=== PATIENT | female | born 1965 | race Caucasian/White ===

== ENCOUNTER 2023-07-04 07:29 | Outpatient (OUT) | payer BC, SELFPAY ==
--- NOTE | 2023-07-04 07:33 | MM_ITS ---
Patient Name: AQUILES CRUM MR#: [id number] : 1965 Exam Date: 07/04/2023 Ordering Doctor: DR Emma Arriola M.D. RADIOLOGY REPORT PROCEDURE: MM TOMOSYNTHESIS SCREENING BI COMPARISON: MG MAMM SCREEN 3D LATESHA CAD, 12/06/2020. MG MAMM SCREEN 3D LATESHA CAD, 03/07/2022. INDICATIONS: Screening Calculator Name NCI Breast Cancer Risk Assessment Tool 5 Year Breast Cancer Risk 1.20% Lifetime Breast Cancer Risk 6.70% Personal Breast Cancer No Personal Ovarian Cancer No Treatments None Family Cancers None LOCATION: [facility] BREAST COMPOSITION: There are scattered areas of fibroglandular density. FINDINGS: DIAGNOSTIC CATEGORY 1--NEGATIVE. NO CHANGE FROM COMPARISON ASSESSMENT. Scattered benign-appearing lymph nodes are present. RIGHT BREAST: No significant suspicious finding. LEFT BREAST: No significant suspicious finding. RECOMMENDATIONS: ROUTINE MAMMOGRAM AND CLINICAL EVALUATION IN 12 MONTHS. PLEASE NOTE: A NORMAL MAMMOGRAM DOES NOT EXCLUDE THE POSSIBILITY OF BREAST CANCER. A CLINICALLY SUSPICIOUS PALPABLE LUMP SHOULD BE BIOPSIED. Dictated by: Kvng Whitlock MD on 07/04/2023 at 09:19 Approved by: Kvng Whitlock MD on 07/04/2023 at 09:20
== END 2023-07-04 07:30 | disposition home or self-care (01) ==
LOC: MAMMO 07:29
PROVIDERS: PCP Family Medicine; Visit Provider Family Medicine
DX: Z12.31 Encounter for screening mammogram for malignant neoplasm of breast (principal)
CPT/HCPCS: 77063; 77067

== ENCOUNTER 2023-08-04 08:50 | Outpatient (OUT) | payer BC, SELFPAY ==
--- NOTE | 2023-08-04 | CT_ITS ---
The [address] [address] Patient Name: AQUILES CRUM MRN: [id number] date: 1965 Sex: F Assigned Patient Location: CT Current Patient Location: Accession/Order Number: [id number] Exam Date: 08/04/2023 09:08 Report Date: 08/06/2023 07:38 At the request of: MADALYN AGUILAR Procedure: CT soft tissue neck w con CT soft tissue neck w con, 08/04/2023 9:08 AM EDT INDICATION: Mass right side of neck R22.1 COMPARISON: Prior ultrasound of thyroid dated 06/10/2020 TECHNIQUE: CT imaging of the neck were acquired with contrast. Supplemental 2D reformatted images were generated and reviewed as needed. Dose reduction techniques were achieved by using automated exposure control and/or adjustment of mA and/or kV according to patient size and/or use of iterative reconstruction technique. FINDINGS: The sensitivity of study has been decreased due to streak artifacts from dental fillings. No abnormality of the base of skull is noted. A retention cyst within the left maxillary sinus is noted. The nasopharynx, oropharynx, hypopharynx and oral cavity are unremarkable. The parotids, submandibular glands are unremarkable. The larynx is unremarkable. No abnormality of paraglottic fat is noted. There is no lymph node enlargement by size criteria. No retropharyngeal lymph node is noted. The thyroid gland is enlarged and heterogeneous containing multiple calcified and noncalcified nodules. The visualized portions of lungs are unremarkable. There is no suspicious osteolytic or osteoblastic lesion. There are multilevel degenerative changes of cervical spine. There is status post ACDF of C5-C6 causing a streak artifact. No definite hardware fracture or loosening is noted. CT/CT soft tissue neck w con IMPRESSION: No definite mass in the current study. Known multinodular goiter. Electronically authenticated by: OCTAVIO CHAPIN Date: 08/06/2023 07:38
== END 2023-08-04 08:51 | disposition home or self-care (01) ==
LOC: CT 08:50
PROVIDERS: PCP Family Medicine; Visit Provider Family Medicine
DX: R22.1 Localized swelling, mass and lump, neck (principal); E04.2 Nontoxic multinodular goiter
CPT/HCPCS: 70491; Q9967

== ENCOUNTER 2023-08-07 10:47 | Outpatient (OUT) | payer BC, SELFPAY ==
--- NOTE | 2023-08-07 | XR_ITS ---
The [address] [address] Patient Name: AQUILES CRUM MRN: [id number] date: 1965 Sex: F Assigned Patient Location: Current Patient Location: Accession/Order Number: [id number] Exam Date: 08/07/2023 10:50 Report Date: 08/08/2023 06:24 At the request of: IVANA HOWELL Procedure: XR foot RT min 3V PROCEDURE: XR foot RT min 3V HISTORY: RIGHT FOOT PAIN for 3 weeks; no known injury COMPARISON: None. FINDINGS: BONES:No fracture, acute abnormality, or significant arthropathy. Calcaneal plantar spur. SOFT TISSUES:No visible soft tissue swelling. EFFUSION:None visible. OTHER: Negative. XR/XR foot RT min 3V IMPRESSION: 1. No acute bone abnormality or significant degenerative joint disease. 2. Moderate size calcaneal plantar spur of uncertain clinical significance. Electronically authenticated by: LOY CAST Date: 08/08/2023 06:24
== END 2023-08-07 10:48 | disposition home or self-care (01) ==
LOC: EC 10:48
PROVIDERS: PCP Family Medicine; Visit Provider Podiatrist Foot & Ankle Surgery
DX: M79.671 Pain in right foot (principal); M77.31 Calcaneal spur, right foot
CPT/HCPCS: 73630

== ENCOUNTER 2023-08-08 12:53 | Outpatient (RCR) | payer BC, SELFPAY | END 2023-09-06 11:35 | disposition home or self-care (01) | LOC: PT 12:53 | PROVIDERS: PCP Family Medicine; Visit Provider Podiatrist Foot & Ankle Surgery | DX: M79.671 Pain in right foot (principal); M72.2 Plantar fascial fibromatosis | CPT/HCPCS: 20560; 97014; 97035; 97110; 97112; 97140; 97161 ==

== ENCOUNTER 2023-11-26 07:52 | Outpatient (OUT) | payer BC, SELFPAY ==
[2023-11-26 08:10] LABS: Basophils Percent Auto 0.5 % (0.2-2.0); Eosinophils Absolute Auto 0.2 10^3/uL (0.0-0.7); Eosinophils Percent Auto 2.8 % (0.9-7.0); Hematocrit 39.9 % (36.0-48.0); Immature Granulocytes Abs Auto 0.01 10^3/uL (0.00-0.03); Immature Granulocytes Pct Auto 0.2 % (0.0-0.5); Lymphocytes Absolute Auto 1.7 10^3/uL (1.2-3.8); Lymphocytes Percent Auto 29.4 % (20.5-60.0); Mean Corpuscular HGB Conc 32.6 g/dL (29.9-35.2); Mean Corpuscular Hemoglobin 28.9 pg (26.7-34.0); Mean Corpuscular Volume 88.7 fL (81.0-99.0); Mean Platelet Volume 8.9 fL (9.5-13.5); Monocytes Absolute Auto 0.5 10^3/uL (0.3-0.8); Monocytes Percent Auto 8.9 % (1.7-12.0); Neutrophils Absolute Auto 3.3 10^3/uL (1.4-6.5); Neutrophils Percent Auto 58.2 % (43.0-75.0); Platelet Count 278 10^3/uL (150-450); Red Cell Distribution Width 13.2 % (11.0-15.0); White Blood Count 5.7 10^3/uL (4.0-11.0)
[2023-11-26 09:15] LABS: Anion Gap 11.8; BUN Creatinine Ratio 27.4; Calcium 9.4 mg/dL (8.5-10.1); Carbon Dioxide 29.4 mmol/L (21.0-32.0); Chloride 103 mmol/L (98-107); Estimated GFR (African America >60 (>=60); Estimated GFR (Non-African Ame >60 (>=60); Glucose 112 mg/dL (74-106); Potassium 4.2 mmol/L (3.5-5.1); Sodium 140 mmol/L (136-145); Thyroid Stimulating Hormone 0.708 uIU/mL (0.358-3.740)
== END 2023-11-26 07:53 | disposition home or self-care (01) ==
LOC: LAB 07:53
PROVIDERS: PCP Family Medicine; Visit Provider Family Medicine
DX: Z01.419 Encounter for gynecological examination (general) (routine) without abnormal findings (principal); R53.83 Other fatigue; K59.00 Constipation, unspecified
CPT/HCPCS: 36415; 80048; 84439; 84443; 85025

== ENCOUNTER 2024-09-05 07:40 | Outpatient (OUT) | payer BC, SELFPAY ==
--- NOTE | 2024-09-05 07:42 | MM_ITS ---
Patient Name: AQUILES CRUM MR#: [id number] : 1965 Exam Date: 09/05/2024 Ordering Doctor: DR MADALYN AGUILAR M.D. RADIOLOGY REPORT PROCEDURE: MM TOMOSYNTHESIS SCREENING BI COMPARISON: MM TOMOSYNTHESIS SCREENING BI, 07/04/2023. MG MAMM SCREEN 3D LATESHA CAD, 03/07/2022. MG MAMM SCREEN 3D LATESHA CAD, 12/06/2020. MG MAMM LATESHA SCRN W CAD DIG, 05/22/2013. INDICATIONS: screening or malignant neoplasm of breast Calculator Name NCI Breast Cancer Risk Assessment Tool 5 Year Breast Cancer Risk 1.30% Lifetime Breast Cancer Risk 6.60% Personal Breast Cancer No Personal Ovarian Cancer No Treatments None Family Cancers None LOCATION: [facility] BREAST COMPOSITION: There are scattered areas of fibroglandular density. FINDINGS: DIAGNOSTIC CATEGORY 1--NEGATIVE. RIGHT BREAST: No significant suspicious finding. LEFT BREAST: No significant suspicious finding. RECOMMENDATIONS: ROUTINE MAMMOGRAM AND CLINICAL EVALUATION IN 12 MONTHS. PLEASE NOTE: A NORMAL MAMMOGRAM DOES NOT EXCLUDE THE POSSIBILITY OF BREAST CANCER. A CLINICALLY SUSPICIOUS PALPABLE LUMP SHOULD BE BIOPSIED. Dictated by: Abhinav Marley DO on 09/05/2024 at 15:53 Approved by: Abhinav Marley DO on 09/05/2024 at 15:55
--- OUTSIDE RECORDS SUMMARY | 2024-09-05 07:47 | XMS_ITS | CCD ---
Author Organization [facility] Care Team Providers Care [employer] Equipment Operator Name Role Phone Emma Aguilar Primary Care Provider EMMA AGUILAR Primary Care Unavailable VAMSI, USMAN H. Referring Unavailable EMMA AGUILAR Primary Care Unavailable VAMSI, USMAN H. Attending Unavailable VAMSI, USMAN H. Referring Unavailable EMMA AGUILAR Primary Care Unavailable VAMSI, USMAN H. Admitting Unavailable VAMSI, USMAN H. Attending Unavailable Andrew Smith Unavailable REQUEST, NONE LISTED Admitting Unavaila ble REQUEST, DR ARREAGA LISTED Attending Unavaila ble LAUREN, DR EMMA Garcia Primary Care Unavailable REQUEST, NONE LISTED Consulting Unavaila ble LAUREN, DR EMMA Garcia Admitting Unavailable AGUILAR, DR EMMA Garcia Attending Unavailable AGUILAR, DR EMMA Garcia Primary Care Unavailable ZINORBERTO, DR MODE Barnes Consulting Unavailable LAUREN, DR EMMA Garcia Consulting Unavailable LAUREN, DR EMMA Garcia Admitting Unavailable AGUILAR, DR EMMA Garcia Attending Unavailable LAUREN, DR EMMA Garcia Primary Care Unavailable ZIEBJINNY, DR MODE Barnes Consulting Unavailable LAUREN, DR EMMA Garcia Consulting Unavailable MD Emma Aguilar Primary Care Provider [phone] MD Musa Steward Attending Provider Emma Aguilar Unavailable Emma Aguilar Attending Unavailable Emma Aguilar Primary Care Unavailable Emma Aguilar Admitting Unavailable Allergies Allergy Classification Reported Allergen(s) Allergy Type Date of Onset Reaction(s) Facility (3 sources) Acetaminophen / HYDROcodone Drug Allergy 021 Nausea Only [place], [place] (11 sources) Azithromycin Drug Allergy 013 Nausea Only [place] Comment on above: Onset Date: 12/09/2012 (18 sources) Codeine Drug Allergy 021 Nausea Only [place], [place] (9 sources) oxyCODONE Drug Allergy Nausea Only [place] (3 sources) Sulfonamides (Antibiotic) Propensity to adverse reactions to drug Nausea Only [place] (9 sources) Acetaminophen / oxyCODONE Drug Allergy stomach upset IM5 Other (7 sources) Acetaminophen; Translations: [acetaminophen] Drug Allergy Gastrointestinal Upset, Gastrointestinal Upset, stomach upset [facility] Comment on above: Onset Date: 12/09/2012 (3 sources) Sulfamethoxazole / Trimethoprim Drug Allergy Unknown IM5 Other (3 sources) Vicodin *ANALGESICS - OPIOID* Propensity to adverse reactions Unknown IM5 Other (3 sources) Cosmetics Propensity to adverse reactions Unknown IM5 Other (6 sources) HYDROcodone; Translations: [hydrocodone] Drug Allergy 024 [facility] Comment on above: Onset Date: 12/09/2012 (6 sources) Sulfamethoxazole; Translations: [sulfamethoxazole] Drug Allergy 024 [facility] Comment on above: Onset Date: 12/09/2012 (6 sources) Trimethoprim; Translations: [trimethoprim] Drug Allergy [facility] Comment on above: Onset Date: 12/09/2012 (6 sources) cosmetic; Translations: [cosmetic] Allergy to substance [facility] Comment on above: Onset Date: 12/09/2012 (1 source) Azithromycin Drug Allergy [facility] Repository (1 source) Codeine Drug Allergy [facility] Repository (1 source) oxyCODONE Drug Allergy [facility] Repository Medications Current Medications Medication Drug Class(es) Dates Sig (Normalized) Sig (Original) acetaminophen 325 mg oral tablet (3 sources) take 2 tablets by mouth every six hours as needed for pain acetaminophen (TYLENOL) 325 MG tablet Take 650 mg by mouth every 6 hours as needed for Pain 0 Active acetaminophen 325 mg / HYDROcodone bitartrate 5 mg oral tablet (2 sources) Opioid Agonist Start: 04-01-2020 End: 04-15-2020 take 1 tablet by mouth every six hours as needed for pain, then take 1 tablet by mouth as needed for pain HYDROcodone-acetami nophen (NORCO) 5-325 MG per tablet Indications: Postoperative pain Take 1 tablet by mouth every 6 hours as needed for Pain for up to 14 days. Intended supply: 5 days. Take lowest dose possible to manage pain 40 tablet 0 04/01/2020 04/15/2020 Active calcium chloride 0.0014 meq/ml / potassium chloride 0.004 meq/ml / sodium chloride 0.103 meq/ml / sodium lactate 0.028 meq/ml injectable solution (4 sources) Start: 04-01-2020 lactated ringers infusion cephalexin 500 mg oral capsule (2 sources) Cephalosporin Antibacterial Start: 04-01-2020 End: 04-08-2020 take 1 capsule by mouth three times daily cephALEXin (KEFLEX) 500 MG capsule Take 1 capsule by mouth 3 times daily for 7 days 21 capsule 0 04/01/2020 04/08/2020 Active ciprofloxacin 3 mg/ml ophthalmic solution (1 source) Quinolone Antimicrobial Start: 02-12-2023 Ciprofloxacin HCl 0.3 % 1 application into the lower eyelid of affected eye Ophthalmic tid for 5 day(s) Jan, Active 1 ml diphenhydrAMINE hydrochloride 50 mg/ml cartridge (1 source) Histamine-1 Receptor Antagonist Start: 04-01-2020 End: 04-01-2020 diphenhydrAMINE (BENADRYL) injection 12.5 mg DULoxetine 60 mg delayed release oral capsule (20 sources) Serotonin and Norepinephrine Reuptake Inhibitor Start: 03-20-2024 take 1 capsule by mouth once daily Duloxetine 60 mg capsule,delayed release(DR/EC) Active 0 .ROUTE .COMPLEX March 20, 2024 1:12pm TAKE 1 CAPSULE BY MOUTH EVERY DAY Start: 11-21-2023 End: 03-20-2024 take 1 capsule by mouth once daily Duloxetine 30 mg capsule,delayed release(DR/EC) Discontinued 0 .ROUTE .COMPLEX November 21, 2023 12:24pm March 20, 2024 1:12pm TAKE 1 CAPSULE BY MOUTH EVERY DAY Start: 09-17-2023 End: 11-21-2023 take 1 capsule by mouth once daily Duloxetine 60 mg capsule,delayed release(DR/EC) Discontinued 0 .ROUTE .COMPLEX September 17, 2023 7:30am November 21, 2023 12:24pm TAKE 1 CAPSULE BY MOUTH EVERY DAY Start: 05-18-2023 End: 09-17-2023 take 1 capsule by mouth once daily Duloxetine 30 mg capsule,delayed release(DR/EC) Discontinued 30 MG PO Daily May 21, 2023 3:05pm September 17, 2023 7:30am take 1 capsule by [facility] every twenty-four hours DULoxetine HCl 30 MG 1 capsule Orally Once a day for 30 days Total 90mg daily Active take 1 capsule by [facility] once daily DULoxetine HCl 60 MG TAKE 1 CAPSULE BY MOUTH EVERY DAY Active 2 ml fentaNYL 0.05 mg/ml injection (1 source) Opioid Agonist Start: 04-01-2020 fentaNYL (SUBLIMAZE) injection 50 mcg 1 ml HYDROmorphone hydrochloride 1 mg/ml cartridge (1 source) Opioid Agonist Start: 04-01-2020 HYDROmorphone (DILAUDID) injection 0.5 mg Larissia 0.1-20 MG-MCG (1 source) take 1 tablet by mouth once daily Larissia 0.1-20 MG-MCG 1 tablet Orally Once a day Active 10 ml lidocaine hydrochloride 10 mg/ml injection (1 source) Antiarrhythmic, Amide Local Anesthetic Start: 04-01-2020 End: 04-01-2020 lidocaine PF 1 % injection 1 mL Medrol Dose Pack as directed (3 sources) Start: 01-13-2021 Medrol Dose Pa ck as directed as directed orally as directed for 30 day(s) Dec, Active Start: 12-23-2020 Medrol Dose Pa ck as directed as directed orally as directed for 30 days Dec, Active 1 ml meperidine hydrochloride 25 mg/ml cartridge (1 source) Opioid Agonist Start: 04-01-2020 meperidine (DEMEROL) injection 12.5 mg 2 ml metoclopramide 5 mg/ml prefilled syringe (1 source) Dopamine-2 Receptor Antagonist Start: 04-01-2020 End: 04-01-2020 metoclopramide (REGLAN) injection 10 mg 2 ml ondansetron 2 mg/ml injection (1 source) Serotonin-3 Receptor Antagonist Start: 04-01-2020 End: 04-01-2020 ondansetron (ZOFRAN) injection 4 mg predniSONE 20 mg oral tablet (3 sources) Start: 12-05-2020 take 1 tablet by mouth every twelve hours predniSONE 20 MG 1 tablet Orally bid for 5 day(s) Nov, Active sennosides, detention 8.6 mg oral tablet (2 sources) Start: 04-01-2020 End: 04-15-2020 take 2 tablets by mouth twice daily senna (SENOKOT) 8.6 MG tablet Take 2 tablets by mouth 2 times daily for 14 days 56 tablet 0 04/01/2020 04/15/2020 Active tiZANidine 4 mg oral tablet (1 source) Central alpha-2 Adrenergic Agonist Start: 04-07-2024 take 1 tablet by mouth every eight hours as needed Tizanidine 4 mg tablet Active 4 MG PO Every 8 hours as needed for muscle spasticity April 07, 2024 12:00am Completed/Discontinued Medications Medication Drug Class(es) Dates Sig (Normalized) Sig (Original) cefdinir 300 mg oral capsule (5 sources) Cephalosporin Antibacterial Start: 07-10-2023 End: 11-15-2023 take 1 capsule by mouth twice daily Cefdinir 300 mg capsule Discontinued 300 MG PO Twice daily July 09, 2023 11:00pm November 15, 2023 9:46am cyclobenzaprine hydrochloride 5 mg oral tablet (10 sources) Muscle Relaxant Start: 01-12-2021 End: 07-10-2023 Cyclobenzaprine 5 mg tablet Discontinued 5 MG PO As Directed January 11, 2021 11:00pm July 10, 2023 10:08am Cyclobenzaprine HCl Active Levonorgestrel-Ethinyl Estrad (15 sources) Progestin, Estrogen, Progestin-containing Intrauterine Device Start: 12-01-2020 End: 07-10-2023 take 1 tablet by mouth once daily Levonorgestrel-Ethinyl Estrad (Larissia) 0.1-20 mg-mcg tablet Discontinued 1 TAB PO Daily November 30, 2020 11:00pm July 10, 2023 10:08am Start: 12-01-2020 End: 07-10-2023 take 1 tablet by mouth once daily Levonorgestrel-Ethinyl Estrad (Larissia) 0.1-20 mg-mcg tablet Discontinued 1 TAB PO Daily December 01, 2020 12:00am July 10, 2023 11:08am Start: 12-01-2020 take 1 tablet by lori th once daily Levonorgestrel-Ethinyl Estrad (Larissia) 0.1-20 mg-mcg tablet Active 1 TAB PO Daily November 30, 2020 11:00pm Start: 02-04-2020 LARISSIA 0.1-2 0 MG-MCG per tablet daily 0 02/04/2020 Active take 1 tablet by lori th every twenty-four hours Larissia 0.1-20 MG-MCG 1 tablet Orally Once a day Active gabapentin 100 mg oral capsule (1 source) Anti-epileptic Agent Start: 11-28-2019 End: 03-26-2020 take 1 capsule by mouth three times daily gabapentin (NEURONTIN) 100 MG capsule Take 1 capsule by mouth 3 times daily for 30 days. 90 capsule 0 11/28/2019 03/26/2020 Discontinued gelatin adsorbable (GELFOAM) sponge (1 source) Start: 04-01-2020 End: 04-01-2020 gelatin adsorbable (GELFOAM) sponge meloxicam 15 mg oral tablet (20 sources) Nonsteroidal Anti-inflammatory Drug Start: 05-17-2023 End: 02-21-2024 take 1 tablet by mouth once daily Meloxicam 15 mg tablet Discontinued 0 .ROUTE .COMPLEX November 15, 2023 9:58am February 21, 2024 8:38am TAKE 1 TABLET BY MOUTH EVERY DAY Start: 11-23-2020 End: 05-17-2023 take 1 tablet by mouth once daily as needed for pain Meloxicam 15 mg tablet Discontinued 15 MG PO Daily as needed for Pain November 30, 2020 11:00pm May 17, 2023 2:23pm sodium chloride 0.154 meq/ml irrigation solution (5 sources) Start: 04-01-2020 End: 04-01-2020 sodium chloride 0.9 % irrigation Start: 04-01-2020 sodium chlorid e flush 0.9 % injection 10 mL sodium chloride 0.9 % 1,000 mL with gentamicin (GARAMYCIN) 80 mg (1 source) Start: 04-01-2020 End: 04-01-2020 sodium chloride 0.9 % 1,000 mL with gentamicin (GARAMYCIN) 80 mg thrombin arianna 1000 unt/ml topical solution (1 source) Blood Coagulation Factor, Human Blood Coagulation Factor Start: 04-01-2020 End: 04-01-2020 thrombin kit topical skin adhesive stick (1 source) Start: 04-01-2020 End: 04-01-2020 topical skin adhesive stick traMADol hydrochloride 50 mg oral tablet (12 sources) Opioid Agonist Start: 11-23-2020 End: 12-22-2020 take 1 tablet by mouth twice daily as needed for pain Tramadol 50 mg tablet Discontinued 50 MG PO Twice daily as needed for Pain November 30, 2020 11:00pm December 22, 2020 7:02am Problems Active Problems Problem Classification Problem Date Documented Da te Episodic/Chronic Abdominal pain (18 sources) Epigastric pain; Translations: [Epigastric pain] Episodic Blindness and vision defects (4 sources) Disorder of vision; 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] 03-31-2024 Chronic Headache; including migraine (12 sources) Headache; Translations: [Headache] Onset: 05-19-2014 Episodic Immunizations and screening for infectious disease (3 sources) Vaccination given; Translations: [Encounter for immunization] Episodic Inflammation; infection of eye (except that caused by tuberculosis or sexually transmitteddisease) (1 source) Unspecified acute conjunctivitis, left eye Episodic Malaise and fatigue (7 sources) Fatigue; Translations: [Other fatigue] Onset: 05-07-2015 11-15-2023 Episodic Other circulatory disease (3 sources) Elevated blood-pressure reading without diagnosis of hypertension; Translations: [Elevated blood-pressure reading, without diagnosis of hypertension] Episodic Other connective tissue disease (5 sources) Fibromyalgia; Translations: [Fibromyalgia] 11-15-2023 Episodic Other connective tissue disease (2 sources) Fibromyalgia Episodic Other connective tissue disease (4 sources) Foot pain; Translations: [Pain in right foot] 07-26-2023 Episodic Other connective tissue disease (1 source) Pain in right foot; Translations: [Pain in limb] 07-26-2023 Episodic Other gastrointestinal disorders (3 sources) Constipation; Translations: [Constipation, unspecified] 11-15-2023 Episodic Other gastrointestinal disorders (1 source) Constipation, unspecified; Translations: [Constipation, unspecified] 11-15-2023 Episodic Other nervous system disorders (9 sources) Chronic pain; Translations: [Other chronic pain] Chronic Other nervous system disorders (4 sources) Other chronic pain; Translations: [Chronic pain G89.29] Onset: 12-08-2020 Resolved: 01-28-2021 Chronic Other nervous system disorders (1 source) Postoperative pain ; Translations: [Postoperative pain] Episodic Other non-traumatic joint disorders (3 sources) Shoulder joint pain; Translations: [Pain in right shoulder] Episodic Other nutritional; endocrine; and metabolic disorders (6 sources) Obese class I; Translations: [Body mass index (BMI) 31.0-31.9, adult] Chronic Other nutritional; endocrine; and metabolic disorders (3 sources) Obesity; Translations: [Obesity, unspecified] Chronic Other nutritional; endocrine; and metabolic disorders (3 sources) Simple obesity ; Translations: [Other obesity due to excess calories] Onset: 01-18-2018 Chronic Other nutritional; endocrine; and metabolic disorders (12 sources) Body mass index 25-29 - overweight; Translations: [Body mass index (BMI) 29.0-29.9, adult] Onset: 06-09-2015 Episodic Other nutritional; endocrine; and metabolic disorders (3 sources) Overweight; Translations: [Overweight] Episodic Other screening for suspected conditions (not mental disorders or infectious disease) (4 sources) Encounter for screening mammogram for malignant neoplasm of breast; Translations: [ENC SCR MAMMO MALIG NEOPLASM BREAST] Onset: 03-07-2022 Episodic Other skin disorders (4 sources) Mass of neck; Translations: [Localized swelling, mass and lump, neck] 07-26-2023 Episodic Other skin disorders (1 source) Localized swelling, mass and lump, neck; Translations: [Swelling, mass, or lump in head and neck] 07-26-2023 Episodic Other upper respiratory infections (3 sources) Chronic sinusitis; Translations: [Chronic sinusitis, unspecified] Chronic Other upper respiratory infections (14 sources) Acute sinusitis; Translations: [Acute sinusitis, unspecified] Onset: 01-29-2017 07-10-2023 Episodic Residual codes; unclassified (1 source) Pain; Translations: [Pain] Episodic Spondylosis; intervertebral disc disorders; other back problems (20 sources) Prolapsed cervical intervertebral disc; Translations: [Cervical radiculopathy] Onset: 03-26-2020 Resolved: 01-28-2021 03-26-2020 Chronic Spondylosis; intervertebral disc disorders; other back problems (15 sources) Cervico-occipital neuralgia; Translations: [Occipital neuralgia] Onset: 12-08-2020 Resolved: 01-28-2021 Episodic Thyroid disorders (8 sources) Disorder of thyroid, unspecified; Translations: [Disorder of thyroid gland] Onset: 09-09-2021 Episodic Past or Other Problems Problem Classification Problem Date Documented Da te Episodic/Chronic Administrative/social admission (3 sources) Repeated prescription; Translations: [Encounter for issue of repeat prescription] Onset: 06-09-2015 Episodic Allergic reactions (6 sources) Allergic contact dermatitis due to plants, except food; Translations: [Allergic contact dermatitis due to plants, except food] Onset: 09-01-2016 Episodic Results Test Name Value Interpretation Reference Range Facility Pap IG, CtNg, rfx HPV Aptima on 11-15-2023 PAP Chlamydia TUAN Negative Normal Negative [facility] Comment on above: Performed By: #### P AP #### [facility] , PAP Gonococcus Negative Normal Negative [facility] Comment on above: Result Comment: Perf ormed at: [facility] [id number] [place] Database Developer: Cheikh Reynoso PhD, Phone: [phone] Performed at: [facility] [id number] [place]l Database Developer: Kristina Bonner MD, Phone: [phone] PERFORMED BY: [address] [place] [address] PATHOLOGIST SALES EFFECTIVENESS MANAGER TIFFANIE FLORES M.D. Performed By: #### P AP #### [facility] , Pap IG Note Normal . [facility] Comment on above: Result Comment: TEST S RESULT FLAG UNITS REF RANGE LAB Clinician Provided Cytology Information No. of containers..01 ThinPrep Vial DIAGNOSIS: 01 NEGATIVE FOR INTRAEPITHELIAL LESION OR MALIGNANCY. Specimen adequacy: 01 Satisfactory for evaluation. No endocervical component is identified. Performed by: 01 Luz Casanova, Lanolin Plant Operator ([facility]) . 01 Note: Note 02 The Pap smear is a screening test designed to aid in the detection of premalignant and malignant conditions of the uterine cervix. It is not a diagnostic procedure and should not be used as the sole means of detecting cervical cancer. Both false-positive and false-negative reports do occur. Test Methodology: Note 02 This liquid based ThinPrep(R) pap test was screened with the use of an image guided system. . 01 The HPV DNA reflex criteria were not met with this specimen result therefore, no HPV testing was performed. FLAG LEGEND: L-Low Normal,H-High Normal,LL-Alert Low,HH-Alert High <-Panic Low,>-Panic High,A-Abnormal,AA-Critical Abnormal Performed at: 01 [facility] [place] [address] [place] [address] [place] [id number] Cheikh Reynoso PhD, 02 WB [facility] [address] [id number] Kristina Bonner MD, Performed By: #### P AP [id number] #### [facility] , Creatine kinase [Enzymatic a ctivity/volume] in Serum or PlasmaOrdered By: Musa Steward on 04-04-2022 CK [Catalytic activity/Vol] 104 U/L 22-269 [facility] MG MAMM SCREEN 3D LATESHA CADon 03-07-2022 MG MAMM SCREEN 3D LATESHA CAD Patient: ANTOINETTE CRUM Exam Date: 03/07/2022 : 1965 Gender:F Ordering : DR EMMA AGUILAR M.D. Admission #: [id number] Family : Order #: [id number] CLICK HERE TO VIEW EXAM RADIOLOGY REPORT PROCEDURE: MAMMOGRAM SCREENING 3D BILATERAL CAD COMPARISON: MG MAMM SCREEN 3D LATESHA CAD, 12/06/2020. INDICATIONS: Screening mammography Calculator Name NCI Breast Cancer Risk Assessment Tool 5 Year Breast Cancer Risk 1.20% Lifetime Breast Cancer Risk 6.90% Personal Breast Cancer No Personal Ovarian Cancer No Treatments None Family Cancers None LOCATION: [facility] BREAST COMPOSITION: Scattered areas fibroglandular density. FINDINGS: DIAGNOSTIC CATEGORY 1--NEGATIVE. RIGHT BREAST: No significant suspicious finding. No significant change has occurred. LEFT BREAST: No significant suspicious finding. No significant change has occurred. RECOMMENDATIONS: ROUTINE MAMMOGRAM AND CLINICAL EVALUATION IN 12 MONTHS. PLEASE NOTE: A NORMAL MAMMOGRAM DOES NOT EXCLUDE THE POSSIBILITY OF BREAST CANCER. A CLINICALLY SUSPICIOUS PALPABLE LUMP SHOULD BE BIOPSIED. Dictated by: Mode Gomez M.D. on 03/08/2022 at 10:05 Approved by: Mode Gomez M.D. on 03/08/2022 at 10:09 Normal [facility] GILSON - TSHon 2021 TSH 0.755 uIU/mL Normal 0.358-3.740 [facility] Comment on above: Performed By: #### D ATTSH #### [facility] Laboratory [address] [address] [address] Lesley Ghosh TSH RANGE SEE BELOW Normal [facility] Comment on above: Result Comment: <0.3 4 UIU/ml HYPERTHYROID 0.34-5.60 UIU/ml EUTHYROID >5.60 UIU/ml HYPOTHYROID Performed By: #### D ATTSH #### [facility] [address] [address] [address] Lesley Ghosh US THYROIDon 06-24-2022 US THYROID EXAMINATION: US THYROID HISTORY: Disorder of thyroid gland COMPARISON: Ultrasound thyroid 06/09/2020 FINDINGS: RIGHT LOBE: Interval increase in size of the superior pole lesion, 1.4 cm, suspected represent a colloid cysts with internal debris. Stable size, but greater soft tissue component/density of a 1.2 cm TR 3 mid body nodule. Slight change configuration, but grossly stable size of a 2.4 cm TR 4 lesion within lateral mid body. Multiple additional nodules within the heterogeneous lobe. Lobe size: 5.0 x 1.5 x 2.5 cm LEFT LOBE: Contains multiple nodules, the largest is 1.4 cm in level TR 4. Heterogeneous echotexture. Lobe size: 5.4 x 2.0 x 2.0 cm ISTHMUS: Heterogeneous echotexture and thickened. Contains a 0.8 cm TR 4 nodule. Thickness: 9 mm IMPRESSION: 1. Heterogeneous thyroid gland containing multiple small and large nodules favoring multinodular goiter. Continued annual follow-up is recommended. Electronically authenticated by: MODE GOMEZ Date: 2021-09-09 11:[address] [facility] FLUORO FOR SURGICAL PROCEDUR ESon 04-01-2020 FLUORO FOR SURGICAL PROCEDURES : 04/01/2020 11:23 AM CLINICAL HISTORY: R52 Pain ICD10. COMPARISON: None available. Intraoperative fluoroscopy was provided for Dr. Vamsi llanos. A total of 62.1 seconds of fluoroscopy was used, with 7 fluoroscopic stills saved. No diagnostic images were obtained. Please see Dr. Agustin surgical notes for completeness. [place], [place] Samuel, Chpo Incoming Radiant Results From [facility] - 04/01/2020 2:01 PM EST FLUORO FOR SURGICAL PROCEDURES : 04/01/2020 11:23 AM CLINICAL HISTORY: R52 Pain ICD10. COMPARISON: None available. Intraoperative fluoroscopy was provided for Dr. Vamsi llanos. A total of 62.1 seconds of fluoroscopy was used, with 7 fluoroscopic stills saved. No diagnostic images were obtained. Please see Dr. Agustin surgical notes for completeness. [facility] OR FLUORO FOR SURGICAL PROCEDURES FLUORO FOR SURGICAL PROCEDURES : 04/01/2020 11:23 AM CLINICAL HISTORY: R52 Pain ICD10. COMPARISON: None available. Intraoperative fluoroscopy was provided for Dr. Vamsi llanos. A total of 62.1 seconds of fluoroscopy was used, with 7 fluoroscopic stills saved. No diagnostic images were obtained. Please see Dr. Agustin surgical notes for completeness. Interpreted by: Naldo Latham MD Signed by: Naldo Latham MD 04/01/20 Final result Normal [facility] POC Urine Qualon 0 04-01-2020 Beta HCG ( test) Ql (U) Negative Negative [facility], [place] Beta HCG ( test) Ql (U) [id number] [facility], OR Negative QC Pass/Fail Pass [facility], OR Positive QC Pass/Fail Pass [facility], OR Surgical Specimenon 04-01-19 Surgical Specimen [facility] [address] [place] [id number] FINAL SURGICAL PATHOLOGY REPORT Patient Name: ANTOINETTE CRUM Accession No: [id number] Age Sex: 1965 Location: [facility] Account No: [id number] Collected: 04/01/2020 [facility] Rec No: [id number] Received: 04/02/2020 Attend Phys: USMAN AGUSTIN Completed: 04/07/2020 Perform Phys: USMAN AGUSTIN FINAL DIAGNOSIS: DISC: PORTIONS OF NUCLEUS PULPOSIS WITH DEGENERATIVE CHANGES SMALL PORTION OF BONE MARSHAMO/ZACKERY CLINICAL INFORMATION: Disc herniation, radiculopathy, degenerative disc disease. SPECIMEN: Disc GROSS DESCRIPTION: Specimen received in formalin in a container labeled with patient's name and designated as spine , consists of multiple grayish-white soft to firm tissue fragments measuring in aggregate 2.0 x 1.5 x 0.3 cm. Specimen is submitted in toto in one cassette after brief decalcification. JAYDEN/DANIELLE CPT: 02019 X1 [id number] X1 Kristina PORTER M.D. 04/07/2020 Electronically signed out by Page 1 of 1 [facility] Comment on above: Performed By: #### S UR #### [address] [address] COVID-19, NAAon 03-27-2020 COVID-19, TUAN Not Detected Normal Not Detect [facility] Comment on above: Result Comment: This nucleic acid amplification test was developed and its performance characteristics determined by [employer]. Nucleic acid amplification tests include PCR and TMA. This test has not been FDA cleared or approved. This test has been authorized by FDA under an Emergency Use Authorization (EUA). This test is only authorized for the duration of time the declaration that circumstances exist justifying the authorization of the emergency use of in vitro diagnostic tests for detection of SARS-CoV-2 virus and/or diagnosis of COVID-19 infection under section 564(b)(1) of the Act, 21 U.S.C. 360bbb-3(b) (1), unless the authorization is terminated or revoked sooner. When diagnostic testing is negative, the possibility of a false negative result should be considered in the context of a patient's recent exposures and the presence of clinical signs and symptoms consistent with COVID-19. An individual without symptoms of COVID-19 and who is not shedding SARS-CoV-2 virus would expect to have a negative (not detected) result in this assay. Performed at: [place] [address] [facility], [place] [id number] Etl Database Developer: Prasad Heath MD, Phone: [phone] Performed By: #### I RCOV #### [facility] [address] [place] [address] Basic Metabolic Panelon 01-0 -2020 Anion gap [Moles/Vol] 12 mmol/L Normal 9-15 [facility] Comment on above: Performed By: #### B MP #### [facility] [address] [place] [address] Calcium [Mass/Vol] 9.0 mg/dL Normal 8.5-9.9 [facility] Comment on above: Performed By: #### B MP #### [facility] [address] [place] [address] Chloride [Moles/Vol] 99 mmol/L Normal 95-107 [facility] Comment on above: Performed By: #### B MP #### [facility] [address] [place] [address] CO2 [Moles/Vol] 25 mmol/L Normal 20-31 [facility] Comment on above: Performed By: #### B MP #### [facility] [address] [place] [address] Creatinine [Mass/Vol] 0.65 mg/dL Normal 0.50-0.90 [facility] Comment on above: Performed By: #### B MP #### [facility] [address] [place] [address] GFR/1.73 sq M predicted among blacks MDRD (S/P/Bld) [Vol rate/Area] mL/min/{1.73_m2} Normal >60 [facility] Comment on above: Result Comment: >60 mL/min/1.73m2 EGFR, calc. for ages 18 and older using the MDRD formula (not corrected for weight), is valid for stable renal function. Performed By: #### B MP #### [facility] [address] [place] [address] GFR/1.73 sq M.predicted MDRD (S/P/Bld) [Vol rate/Area] mL/min/{1.73_m2} Normal >60 [facility] Comment on above: Result Comment: >60 mL/min/1.73m2 EGFR, calc. for ages 18 and older using the MDRD formula (not corrected for weight), is valid for stable renal function. Performed By: #### B MP #### [facility] [address] [place] [address] Glucose [Mass/Vol] 152 mg/dL Critically high 70-99 M [facility] Comment on above: Performed By: #### B MP #### [facility] [address] [place] [address] Potassium [Moles/Vol] 3.7 mmol/L Normal 3.4-4.9 [facility] Comment on above: Performed By: #### B MP #### [facility] [address] [place] [address] Sodium [Moles/Vol] 136 mmol/L Normal 135-144 [facility] Comment on above: Performed By: #### B MP #### [facility] [address] [place] [address] Urea nitrogen [Mass/Vol] 10 mg/dL Normal 6-20 [facility] Comment on above: Performed By: #### B MP #### [facility] [address] [place] [address] Anion gap [Moles/Vol] 12 mmol/L [place] Calcium [Mass/Vol] 9.0 mg/dL 8.5 - 9.9 mg/dL [place] Chloride [Moles/Vol] 99 mmol/L [place] CO2 [Moles/Vol] 25 mmol/L [place] Creatinine [Mass/Vol] 0.65 mg/dL 0.5 - 0.9 mg/dL [place] GFR >60.0 >60 [place] Comment on above: >60 mL/min/1.73m2 EG FR, calc. for ages 18 and older using the MDRD formula (not corrected for weight), is valid for stable renal function. GFR Non- >60.0 >60 [place] Comment on above: >60 mL/min/1.73m2 EG FR, calc. for ages 18 and older using the MDRD formula (not corrected for weight), is valid for stable renal function. Glucose [Mass/Vol] 152 mg/dL High 70 - 99 mg/dL [place], [place] Interpretation and review of laboratory results Abnormal [place] Potassium [Moles/Vol] 3.7 mmol/L [place] Sodium [Moles/Vol] 136 mmol/L [place] Urea nitrogen [Mass/Vol] 10 mg/dL 6 - 20 mg/dL [place] CBCon 03-26-2020 Erythrocyte distribution width (RBC) [Ratio] 14.7 % High 11.5 - 14.5 % [place] Hematocrit (Bld) [Volume fraction] 36.0 % Low 37 - 47 % [place] Hemoglobin (Bld) [Mass/Vol] 12.1 g/dL 12 - 16 g/dL [place] Interpretation and review of laboratory results Abnormal [place] MCH (RBC) [Entitic mass] 29.0 pg 27 - 31.3 pg [place] MCHC (RBC) [Mass/Vol] 33.7 % 33 - 37 % [place] MCV (RBC) [Entitic vol] 86.0 fL 82 - 100 fL [place] Platelets (Bld) [#/Vol] 289 10*3/uL 130 - 400 K/uL [place] RBC (Bld) [#/Vol] 4.18 10*6/uL Low [place] WBC (Bld) [#/Vol] 5.4 10*3/uL 4.8 - 10.8 K/uL [place] CBC With Platelet No Differe ntialon 03-26-2020 Erythrocyte distribution width (RBC) [Ratio] 14.7 % Critically high 11.5-14.5 [facility] Comment on above: Performed By: #### C BCND #### [facility] [address] [place] [address] Hematocrit (Bld) [Volume fraction] 36.0 % Low 37.0-47.0 [facility] Comment on above: Performed By: #### C BCND #### [facility] [address] [place] [address] Hemoglobin (Bld) [Mass/Vol] 12.1 g/dL Normal 12.0-16.0 [facility] Comment on above: Performed By: #### C BCND #### [facility] [address] [place] [address] MCH (RBC) [Entitic mass] 29.0 pg Normal 27.0-31.3 [facility] Comment on above: Performed By: #### C BCND #### [facility] [address] [place] [address] MCHC (RBC) [Mass/Vol] 33.7 % Normal 33.0-37.0 [facility] Comment on above: Performed By: #### C BCND #### [facility] [address] [place] [address] MCV (RBC) [Entitic vol] 86.0 fL Normal 82.0-100.0 [facility] Comment on above: Performed By: #### C BCND #### [facility] [address] [place] [address] Platelets (Bld) [#/Vol] 289 10*3/uL Normal 130-400 [facility] Comment on above: Performed By: #### C BCND #### [facility] [address] [place] [address] RBC (Bld) [#/Vol] 4.18 10*6/uL Low 4.20-5.40 [facility] Comment on above: Performed By: #### C BCND #### [facility] [address] [place] [address] WBC (Bld) [#/Vol] 5.4 10*3/uL Normal 4.8-10.8 [facility] Comment on above: Performed By: #### C BCND #### [facility] [address] [place] [address] COVID-19, NAAon 03-26-2020 Source Swab Anterior nares Normal [facility] Comment on above: Performed By: #### I RCOV #### [facility] [address] [place] [address] EKG 12 Leadon 03-26-2020 Atrial Rate 100 BPM [facility] P Laurel 53 degrees [facility] P-R Interval 148 ms [facility] [place] Q-T Interval 370 ms [facility] [place] QRS Duration 84 ms [facility] [place] QTc Calculation (Bazett) 477 ms [facility] R Laurel 46 degrees [facility] T [place]urel 66 degrees [facility] Ventricular Rate 100 BPM [facility] Normal sinus rhythm Possible Left atrial enlargement Borderline ECG No previous ECGs available Confirmed by Fay Jacob ([id number]) on 03/26/2020 2:26:04 PM [place] Joe Baker Incoming Results From [place] - 03/26/2020 2:26 PM EST Normal sinus rhythm Possible Left atrial enlargement Borderline ECG No previous ECGs available Confirmed by Fay Jacob ([id number]) on 03/26/2020 2:26:04 PM [place] Prothrombin Timeon INR Coag (PPP) [Relative time] 1.0 {INR} Normal [facility] Comment on above: Performed By: #### P T #### [facility] [address] [facility] [address] PT Coag (PPP) [Time] 12.9 s Normal 12.3-14.9 [facility] Comment on above: Performed By: #### P T #### [facility] [address] [facility] [address] Protime-INRon 03-26-2020 INR Coag (PPP) [Relative time] 1.0 {INR} [place] PT Coag (PPP) [Time] 12.9 s [place] TYPE AND SCREENon 03-26-2020 ABO/Rh Positive [place] Confirmation type needs to be drawn. [place] Type and Screen Capture 3 sc rn cellon 03-26-2020 Type and Screen Capture 3 scrn cell PATIENT: SKYLA Maldonado LOC: [facility] BILL# : [id number] : 1965 SEX: F ORDERED BY: DERIC Marie ORDERED : 03/26/2020 11:48 COLLECTED: 03/26/2020 14:06 ORDER : [id number] RECEIVED : 03/26/2020 14:06 Confirmation type needs to be drawn. TEST NAME RESULT UNITS RANGES ABN FL ST ABOR[facility] Capture A POS F Antibody 3 Cell Scrn Dom NEG F Normal [facility] Comment on above: Performed By: #### T S3C #### [facility] [address] [place] [address] Vital Signs Date Time Vital Sign Value Performing Clinician Facility 04-07-2024 11:33-0500 Body height 167.64 cm [facility] 04-07-2024 11:33-0500 Body mass index (BMI) [Ratio] 32.5 kg/m2 [facility] 04-07-2024 11:33-0500 Body weight 91.39 kg [facility] 04-07-2024 11:33-0500 Diastolic blood pressure 95 mm[Hg] [facility] 04-07-2024 11:33-0500 Heart rate 97 /min [facility] 04-07-2024 11:33-0500 Systolic blood pressure 148 mm[Hg] [facility] 03-31-2024 15:00-0500 Body height 167.64 cm [facility] 03-31-2024 15:00-0500 Body mass index (BMI) [Ratio] 32.8 kg/m2 [facility] 03-31-2024 15:00-0500 Body weight 92.07 kg [facility] 03-31-2024 15:00-0500 Diastolic blood pressure 98 mm[Hg] [facility] 03-31-2024 15:00-0500 Heart rate 93 /min [facility] 03-31-2024 15:00-0500 Systolic blood pressure 156 mm[Hg] [facility] 11-15-2023 10:41-0400 Body height 167.64 cm [facility] 11-15-2023 10:41-0400 Body mass index (BMI) [Ratio] 32.9 kg/m2 [facility] 11-15-2023 10:41-0400 Body weight 92.53 kg [facility] 11-15-2023 10:41-0400 Diastolic blood pressure 86 mm[Hg] [facility] 11-15-2023 10:41-0400 Heart rate 109 /min [facility] 11-15-2023 10:41-0400 Systolic blood pressure 142 mm[Hg] [facility] 07-26-2023 09:26-0400 Body height 167.64 cm [facility] 07-26-2023 09:26-0400 Body mass index (BMI) [Ratio] 31.9 kg/m2 [facility] 07-26-2023 09:26-0400 Body weight 89.81 kg [facility] 07-26-2023 09:26-0400 Diastolic blood pressure 86 mm[Hg] [facility] 07-26-2023 09:26-0400 Heart rate 93 /min [facility] 07-26-2023 09:26-0400 Systolic blood pressure 130 mm[Hg] [facility] 07-10-2023 11:02-0400 Body height 15.24 cm [facility] 07-10-2023 11:02-0400 Body mass index (BMI) [Ratio] 3905.5 kg/m2 [facility] 07-10-2023 11:02-0400 Body weight 90.71 kg [facility] 07-10-2023 11:02-0400 Diastolic blood pressure 102 mm[Hg] [facility] 07-10-2023 11:02-0400 Heart rate 96 /min [facility] 07-10-2023 11:02-0400 Systolic blood pressure 161 mm[Hg] [facility] 04-26-2023 09:30-0500 Body height 167.64 cm Emma Aguilar Other [facility] Other 04-26-2023 09:30-0500 Body mass index (BMI) [Ratio] 31.92 kg/m2 Emma Aguilar Other [facility] Other 04-26-2023 09:30-0500 Body weight 89.72 kg Emma Aguilar Other [facility] Other 04-26-2023 09:30-0500 Diastolic blood pressure 83 mm[Hg] Emma Aguilar Other [facility] Other 04-26-2023 09:30-0500 Systolic blood pressure 119 mm[Hg] Emma Aguilar Other [facility] Other 02-12-2023 15:15-0500 Body height 167.64 cm Emma Aguilar Other [facility] Other 02-12-2023 15:15-0500 Body mass index (BMI) [Ratio] 31.57 kg/m2 Emma Aguilar Other [facility] Other 02-12-2023 15:15-0500 Body weight 88.72 kg Emma Aguilar Other [facility] Other 02-12-2023 15:15-0500 Diastolic blood pressure 97 mm[Hg] Emma Aguilar Other [facility] Other 02-12-2023 15:15-0500 Systolic blood pressure 149 mm[Hg] Emma Aguilar Other [facility] Other 10-26-2022 09:45-0400 Body height 167.64 cm Emma Aguilar Other [facility] Other 10-26-2022 09:45-0400 Body mass index (BMI) [Ratio] 31.34 kg/m2 Emma Aguilar Other [facility] Other 10-26-2022 09:45-0400 Body weight 88.09 kg Emma Aguilar Other [facility] Other 10-26-2022 09:45-0400 Diastolic blood pressure 96 mm[Hg] Emma Aguilar Other [facility] Other 10-26-2022 09:45-0400 Respiratory rate 18 /min Emma Aguilar Other [facility] Other 10-26-2022 09:45-0400 SaO2% (BldA) [Mass fraction] 90 % Emma Aguilar Other [facility] Other 10-26-2022 09:45-0400 Systolic blood pressure 145 mm[Hg] Emma Aguilar Other [facility] Other 01-28-2021 11:15-0500 Body height 165.1 cm Andrew Smith Other [facility] Other 01-28-2021 11:15-0500 Body mass index (BMI) [Ratio] 33.11 kg/m2 Andrew Smith Other [facility] Other 01-28-2021 11:15-0500 Body weight 90.27 kg Andrew Smith Other [facility] Other 01-28-2021 11:15-0500 Diastolic blood pressure 80 mm[Hg] Andrew Smith Other [facility] Other 01-28-2021 11:15-0500 Systolic blood pressure 140 mm[Hg] Andrew Smith Other [facility] Other 12-29-2020 15:30-0400 Body height 165.1 cm Andrew Smith Other [facility] Other 12-29-2020 15:30-0400 Body mass index (BMI) [Ratio] 33.48 kg/m2 Andrew Luis Other [facility] Other 12-29-2020 15:30-0400 Body weight 91.26 kg Andrew Luis Other [facility] Other 12-29-2020 15:30-0400 Diastolic blood pressure 76 mm[Hg] Andrew Luis Other [facility] Other 12-29-2020 15:30-0400 SaO2% (BldA) [Mass fraction] 99 % Andrew Smith Other [facility] Other 12-29-2020 15:30-0400 Systolic blood pressure 124 mm[Hg] Andrew Luis Other [facility] Other 12-08-2020 15:30-0400 Body height 165.1 cm Andrew Smith Other [facility] Other 12-08-2020 15:30-0400 Body mass index (BMI) [Ratio] 33.11 kg/m2 Andrewberkley Smith Other [facility] Other 12-08-2020 15:30-0400 Body weight 90.27 kg Andrew Luis Other [facility] Other 12-08-2020 15:30-0400 Diastolic blood pressure 70 mm[Hg] Andrew Luis Other [facility] Other 12-08-2020 15:30-0400 SaO2% (BldA) [Mass fraction] 99 % Andrew Smith Other [facility] Other 12-08-2020 15:30-0400 Systolic blood pressure 130 mm[Hg] Andrew Murilloky Other [facility] Other 04-01-2020 16:45-0500 Body Temperature 97.81 [degF] [facility] [place] 04-01-2020 16:45-0500 BP Diastolic 89 mm[Hg] Usman Vamsi [email or web address] [place] 04-01-2020 16:45-0500 BP Systolic 174 mm[Hg] Usman Vamsi [email or web address] [place] 04-01-2020 16:45-0500 Pulse (Heart Rate) 101 /min Usman Vamsi [email or web address] [place] 04-01-2020 16:45-0500 Pulse Oximetry 100 % Usman Vamsi [email or web address] [place] 04-01-2020 16:45-0500 Respiratory Rate 18 /min Usman Vamsi [email or web address] [place] 04-01-2020 09:29-0500 BMI (Body Mass Index) 33.3 kg/m2 Usman Vamsi [email or web address] [place] 04-01-2020 09:29-0500 Body weight 88 kg Usman Vamsi [email or web address] [place] 04-01-2020 09:29-0500 Height 162.6 cm Usman Vamsi [email or web address] [place] 03-26-2020 11:11-0500 BMI (Body Mass Index) 33.37 kg/m2 [email or web address] [place] 03-26-2020 11:11-0500 Body Temperature 98.2 [degF] [email or web address] [place] 03-26-2020 11:11-0500 Body weight 88.18 kg [email or web address] [place] 03-26-2020 11:11-0500 BP Diastolic 89 mm[Hg] [facility] [place] , [place] 03-26-2020 11:11-0500 BP Systolic 178 mm[Hg] [facility] [place] 03-26-2020 11:11-0500 Height 162.6 cm [facility] [place] , [place] 03-26-2020 11:11-0500 Pulse (Heart Rate) 111 /min [facility] [place] 03-26-2020 11:11-0500 Pulse Oximetry 99 % [facility] 1 [facility] [place] , [place] 03-26-2020 11:11-0500 Respiratory Rate 16 /min [facility] [place] Encounters Encounter Date Encounter Type Care Provider Facility Start: 04-07-2024 End: 04-07-2024 ambulatory [facility] Work Phone: Start: 04-07-2024 End: 04-07-2024 Patient encounter procedure [facility] Physician [facility] Work Phone: Start: 03-31-2024 End: 03-31-2024 ambulatory [facility] Work Phone: Start: 03-31-2024 End: 03-31-2024 Patient encounter procedure [facility] Work Phone: Start: 11-15-2023 Encounter for gynecological examination (general) (routine) without abnormal findings Emma Aguilar [facility] Start: 11-15-2023 End: 11-15-2023 ambulatory Emma Aguilar [facility] Work Phone: Start: 11-15-2023 End: 11-15-2023 Patient encounter procedure [facility] Work Phone: Start: 07-26-2023 End: 07-26-2023 ambulatory [facility] Work Phone: Start: 07-26-2023 End: 07-26-2023 Patient encounter procedure [facility] Work Phone: Start: 07-10-2023 End: 07-10-2023 ambulatory [facility] Work Phone: Start: 07-10-2023 End: 07-10-2023 Patient encounter procedure [facility] Physician [facility] Work Phone: Start: 05-21-2023 Non-patient / Non-visit [facility] Physician [facility] [employer] Work Phone: Start: 05-18-2023 Non-patient / Non-visit [facility] Physician [facility] Work Phone: Start: 04-26-2023 End: 04-26-2023 ambulatory Emma Aguilar Other [facility] Other Start: 04-26-2023 Office outpatient vi sit 15 minutes Emma Aguilar [facility] Start: 02-12-2023 End: 02-12-2023 ambulatory Emma Aguilar Other [facility] Other Start: 02-12-2023 Office outpatient vi sit 15 minutes Emma Aguilar [facility] Start: 10-26-2022 End: 10-26-2022 ambulatory Emma Aguilar Other [facility] Other Start: 10-26-2022 Office outpatient vi sit 15 minutes Emma Aguilar [facility] Start: 04-04-2022 End: 04-04-2022 ambulatory MD Emma Aguilar Work Phone: [facility] Work Phone: Start: 04-04-2022 End: 04-04-2022 Patient encounter procedure MD Emma Aguilar Work Phone: [facility] [address] Work Phone: Start: 03-07-2022 End: 03-08-[address] EMMA AGUILAR Facility: Start: 03-06-2022 Adult health examination Rose Aguilar Other [facility] Other Start: 2021 End: 09-15-[address] ARREAGA LISTED REQUEST Facility:[facility] Start: 09-09-2021 End: 09-10-[address] EMMA AGUILAR Facility:[facility] Start: 01-28-2021 End: 01-28-2021 ambulatory Andrew Smith Other [facility] Other Start: 01-28-2021 Office outpatient vi sit 25 minutes Andrewberkley Smith [facility] Start: 01-13-2021 Telephone encounter Andrew Luis [facility] Start: 12-29-2020 Office outpatient vi sit 15 minutes Andrewberkley Smith [facility] Start: 12-23-2020 Telephone encounter Andrewberkley Smith [facility] Start: 12-22-2020 (Procedure) Short Andrew Smith [facility] Start: 12-08-2020 Office outpatient vi sit 25 minutes Andrewberkley Smith [facility] Start: 04-01-2020 End: 04-01-2020 Patient encounter procedure [facility] Start: 04-01-2020 End: 04-01-2020 Subsequent hospital visit by physician Usman Agustin Work Phone: [facility] Comment on above: Postoperative pain ( Primary Dx) Start: 04-01-2020 End: 04-04-2020 Patient encounter procedure [facility] Start: 04-01-2020 End: 04-03-2020 Subsequent hospital visit by physician Usman Agustin Work Phone: [facility] Comment on above: Pain Start: 03-26-2020 End: 03-31-2020 Patient encounter procedure EMMA [facility] Start: 03-26-2020 End: 03-30-2020 Subsequent hospital visit by physician Marcelle Rodriguez 1 [facility] Pre-Admission Testing Comment on above: Cervical disc hernia tion; Radiculopathy of cervical spine Procedures Date Procedure Procedure Detail Performing Clinician Start: 04-01-2020 Fluoroscopy during operation Usman Agustin Work Phone: Start: 04-01-2020 Urine test visual color cmprsn meths Crystal K Leos Start: 03-26-2020 Antibody screen [facility] 1 Start: 03-26-2020 Basic metabolic pane l calcium total Crystal Leos Start: 03-26-2020 Blood count complete automated Crystal Leos Start: 03-26-2020 Prothrombin time Manuel Leos Start: 03-26-2020 Blood typing serologic abo Crystal Leos Start: 03-26-2020 Ecg routine ecg w/le ast 12 lds w/i&r Crystal Marie Deric Screening for malign ant neoplasm of breast Emma Aguilar Other Plan of Treatment Date Care Activity Detail Author Start: 07-26-2023 Patient referral [facility] Work Phone: Start: 04-04-2022 [facility] Start: 04-14-2020 End: 04-14-2020 Office Visit 04/14/2020 Office Visit Neurosurgery Usman Agustin MD [address], [address] [place] [id number] [email or web address] Start: 04-01-2020 End: 04-01-2020 Hospital Encounter [facility] [place] Comment on above: A.C.D.F. ( ANTERIOR CERVICAL DISKECTOMY FUSION) C5-6 1 HR/ I C-ARM, NUVASIVE/ S.S.E.P. TO BE LATEX FREE JULIÁN Start: 11-18-2019 Influenza vaccination Flu vaccine (# 1) [place], [place] Start: 09-13-2013 Screening for malign ant neoplasm of breast Breast cancer screen [place] Start: 09-13-2013 Screening for malign ant neoplasm of colon Colon cancer screen colonoscopy [place] Start: 09-13-2013 Shingles Vaccine (1 of 2) Shingles Vaccine (1 of 2) [place] Start: 2003 Diabetes screen Diabetes screen [place], [place] Start: 2003 Lipid panel Lipid screen [place], [place] Start: 09-13-1984 Screening for malign ant neoplasm of cervix Cervical cancer screen [place] Start: 09-13-1982 DTaP/Tdap/Td vaccine (1 - Tdap) DTaP/Tdap/Td vaccine (1 - Tdap) [place] Start: 09-13-1978 HIV screening [facility] [place] [place] Start: 1965 Hepatitis C screening Hepatitis C sc jovon [place] End: 03-26-2020 COVID-19 COVID-19 Lab Routine One Time for 1 Occurrences starting 03/26/2020 until 03/26/2020 [place] Comment on above: One Time for 1 Occur rences starting 03/26/2020 until 03/26/2020 CT Neck W contrast IV [facility] End: 04-01-2020 Intermittent pulse oximetry Pulse Oximetry Spot Check Respiratory Care Routine One Time for 1 Occurrences starting 04/01/2020 until 04/01/2020 [place] Comment on above: One Time for 1 Occur rences starting 04/01/2020 until 04/01/2020 Nuclear Ab [Titer] i n Serum [facility] Oxygen therapy [[facility]ini [facility] Data Set] Initiate Oxygen Therapy Protocol Respiratory Care Routine Daily until discontinued starting 04/01/2020 [place] Comment on above: Daily until disconti nued starting 04/01/2020 Patient referral [facility] Work Phone: Phase I & II - meter ed glucose Phase I & II - metered glucose Point of Care Testing Routine As Needed until discontinued starting 04/01/2020 [place] Comment on above: As Needed until disc ontinued starting 04/01/2020 Surgical Pathology Surgical Path ology Lab Routine Release Upon Ordering for 1 Occurrences starting 04/01/2020 [place] Comment on above: Release Upon Orderin g for 1 Occurrences starting 04/01/2020 [facility] Immunizations Immunization Date Immunization Notes Care Provider Fa nbole 09-28-2021 COVID-19 Vaccine Pfi zer - Documentation Purposes Only Emma Aguilar Other [facility] 11-11-2020 influenza virus vaccine, split virus (incl. purified surface antigen) Emma Aguilar Other [employer] [facility] [employer] Other 11-11-2020 influenza virus vaccine, unspecified formulation [facility] 06-30-2020 COVID-19 mRNA-1273 (Moderna) MD Emma Aguilar Work Phone: [facility] 06-02-2020 COVID-19 mRNA-1273 (Moderna) MD Emma Aguilar Work Phone: [facility] 12-15-2019 zoster vaccine, live Emma Aguilar Other [facility] 12-02-2019 influenza virus vaccine, split virus (incl. purified surface antigen) Emma Aguilar Other [employer] [facility] [employer] Other 12-02-2019 influenza virus vaccine, unspecified formulation [facility] 01-26-2018 influenza virus vaccine, split virus (incl. purified surface antigen) Emma Aguilar Other [facility] [employer] Other 01-26-2018 influenza virus vaccine, unspecified formulation [facility] Payers Date Payer Category Payer Unknown [id number] 2.16.8 [id number] 1965 Unknown [id number] 2.16.8 [id number] 1965 Unknown [id number] 2.16.8 [id number] 1965 Unknown [id number] 2.16.84 [id number] 1965 Unknown [id number] 2.16.84 [id number] 1961 Self-pay 1961 Unknown [id number]. [id number] Unknown [id number] 2.16.84 [id number] Unknown [id number] 2.16.8 [id number] Social History Date Type Detail Facility Start: 03-26-2020 End: 01-12-2021 Tobacco smoking status NHIS Former smoker [facility] End: 03-26-2000 History of tobacco use Current smoker [place], [place] End: 03-26-2000 History of tobacco use Cigarette Smoker [place] Start: 03-26-2020 End: 04-02-2020 Cigarettes smoked current (pack per day) - Reported [place] Start: 03-26-2020 End: 04-02-2020 Tobacco use and exposure Never used [place] Start: 03-26-2020 End: 04-02-2020 Alcohol intake Current drinker of alcohol (finding) [place] Start: 03-26-2020 Alcohol Comment rare social [facility] Jannie [place] Sex Assigned At Not on file [place] Exposure to SARS-CoV -2 (event) Not sure [place] Sex Assigned At Sex Assigned At Bir th IM5 Other Start: 1965 Sex Assigned At Female F [facility] Start: 02-12-2023 End: 02-12-2023 Tobacco smoking status NHIS Never smoked tobacco (finding) [facility] Start: 03-31-2024 End: 04-07-2024 Sex Female (finding) [facility] Medical Equipment Procedure Code Equipment Code Equipment Origin al Text Equipment Identifier Dates Cage Spnl [id number] xl14mm Lum Lord Intbdy Fus [facility] - [id number] Start: 04-01-2020 Plate Spnl 1 Lev el 22 Mm Antr Cerv Lck Translational [id number] Start: 04-01-2020 Screw Spnl L13mm Dia4mm Ant Cerv [facility] Ang Compr [place] [facility] [id number] Start: 04-01-2020 Clinical Notes 03-19-2020 to 03-31-2024 Note Date & Type Note Facility 03-31-2024 Evaluation note Diagnosis Onset Date Resolution Visual problems acute March 192024 2:52pm [facility] Work Phone: 1(162) 513-923702-08-2024 Evaluation note* Encounter Date Diagnosis Assessment Notes Treatment Notes Treatment Clinical Notes Apr, Fibromyalgia (ICD-10 - M79.7) Already on highest dose of meloxicam. Appears that max dose of Cymbalta is 120 mg daily. Will increase it modestly to 90 mg total daily. Hesitate to add more medications which could cause drowsiness, like Lyrica. Call in 30 days if not effective. IM5 Other 11-27-2023 Evaluation note* Encounter Date Diagnosis Assessment Notes Treatment Notes Treatment Clinical Notes Jan, Acute bacterial conjunctivitis of left eye (ICD-10 - H10.32) [place] [facility] is contagious. Wash hands frequently and try not to rub eyes. Use warm wash cloth to keep them clean or to remove discharge from eyes. Use drops until eyes are clear then 3 more days IM5 Other 08-10-2023 Evaluation note* Encounter Date Diagnosis Assessment Notes Treatment Notes Treatment Clinical Notes Oct, Fibromyalgia (ICD-10 - M79.7) Continue healthy nutrition, exercise as she has been and monitor for ankle issues. Podiatry referral if symptoms worsen. Oct, Chronic pain (ICD-10 - G89.29) As above. Her pain has improved since she started circut training earlier this summer. Oct, Disorder of thyroid, unspecified (ICD-10 - E07.9) Chronic problem. Continue present med. IM5 Other 11-12-2021 Evaluation note* Encounter Date Diagnosis Assessment Notes Treatment Notes Treatment Clinical Notes Jan, Cervical spondylosis (ICD-10 - M47.812) 55 y/o female here for follow up status post cervical facet medial branch radiofrequency denervation on the right at C2, C3, C4 under fluoroscopic guidance. Patient reports at least 80% relief of her neck pain and headaches following the procedure. She continues to complain of mild residual neck pain. She is doing well, she can continue to give the radiofrequency ablation more time to take its full effect. She can use OTC Voltaren gel as needed. She can call the office should her pain become bothersome. Jan, Occipital neuralgia (ICD-10 - M54.81) Patient denies headaches today. Continue with current treatment plan Jan, Chronic pain (ICD-10 - G89.29) Continue medications as prescribed IM5 Other 10-13-2021 Evaluation note* Encounter Date Diagnosis Assessment Notes Treatment Notes Treatment Clinical Notes Dec, Cervical spondylosis (ICD-10 - M47.812) 55 year old female here for follow up status post cervical facet medial branch block right at C2, C3 and C4 under fluoroscopic guidance. Patient reports at least 80% pain relief and increased function for 4 days following the procedure. She continues to complain of neck pain today as expected. Different treatment options were discussed in detail with the patient, and I recommend we proceed with a right cervical facet RFA under fluoroscopic guidance. Risks and benefits of procedure explained to patient; patient verbalizes understanding. Dec, Occipital neuralgia (ICD-10 - M54.81) Patient denies headaches today. Continue with current treatment plan Dec, Chronic pain (ICD-10 - G89.29) Conitnue medications as prescribed IM5 Other 09-22-2021 Evaluation note* Encounter Date Diagnosis Assessment Notes Treatment Notes Treatment Clinical Notes Nov, Cervical spondylosis (ICD-10 - M47.812) 55 year old female here for follow up status post cervical facet medial branch block right at C2, C3 and C4 under fluoroscopic guidance. Patient reports 100% pain relief and increased function following the procedure. She denies any neck pain or headaches today. She does note pressure to the neck, more on the right. She states a few days after the procedure she developed a rash to the neck and face and presented to an urgent care where she recieved oral prednisone. Different treatment options were discussed in detail with the patient, and I recommend we proceed with a confirmatory right cervical facet medial branch nerve block under fluoroscopic guidance. Risks and benefits of procedure explained to patient; patient verbalizes understanding. Nov, Occipital neuralgia (ICD-10 - M54.81) Stable. Patient voices no complaints of headaches today. Nov, Chronic pain (ICD-10 - G89.29) Continue medications as prescribed [employer] [facility] [employer] Other 01-01-2021 History general Narrative - Reported* Type Description Date Surgical History CYST REMOVAL FROM OVARY Surgical History septoplasty 2019 Surgical History disc replacement in neck 03/2020 Hospitalization History see above IM5 Other [facility] Other Evaluadvcp noteNo assessment information available [facility] Work Phone: Evaluation note* Diagnosis Onset Date Resolution Status Acute sinusitis, unspecified acute Mass of right side of neck a cute Right foot pain acute [facility] Work Phone: Evaluation note* Diagnosis Onset Date Resolution Status Constipation acute Fatigue acute Well woman exam acute [facility] Work Phone: Evaluation note* Diagnosis Onset Date Resolution Status Admit Date Visual problems acute March 192024 2:52pm [facility] Work Phone: History general Narrative - Reported* Type Description Date Medical History Chronic cervical radiculopathy Medical History Fibromyalgia Medical History 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 Jeanette-Hex wash instructions given -- to be done Sunday03/30/2020 & Sunday03/31/2020. documented in this encounter* Yony Ash RN - 04/01/2020 4:47 PM EST Pt had ambulated to bathroom, steady, void without difficulty. Discharge instructions and 3 scriptsreviewed with pt, verbalized understanding. Pt tolerating oral fluids, IV discontinued. pts sister coming at 5:30pm * Tara Hook RN - 04/01/2020 4:22 PM EST Discharge instructions were reviewed by Yony Ash R.N. Patient verbalized understanding. Has metdischarge criteria. * Constance Hess RN - 04/01/2020 2:30 PM EST Patient tolerating ice chips well. * Constance Hess RN - 04/01/2020 2:29 PM EST Patient received from surgery. Patient very slow to wake up from anesthesia. Pain 8/10 when awake, pain med given. Pain decrease to 7/10. Patient kept on Oxygen 2 lnc due to de sating after pain med.Report given to Akanksha. documented in this encounter Assessments Diagnosis Radiculopathy of cervical spine- Primary Brachial neuritis or radiculitis nos Cervical disc herniation Displacement of cervical intervertebral disc without myelopathy Diagnosis Pain Generalized pain Diagnosis Postoperative pain- Primary Other acute postoperative pain Advance Directives Documents on File Type Date Recorded Patient Senior Designer Expl anation ACP-Advance Directive ACP-Power of Supervisor [employer] Documents on File Type Date Recorded Patient Senior Designer Expl anation ACP-Advance Directive ACP-Power of Supervisor [employer] Advance Directive Response Recorded Date/ Time Advance Directives No November 05, 2020 11:05am Advance Directive Response Recorded Date/ Time Advance Directives No November 05, 2020 12:05pm Summary Purpose Family History Relationship Condition Age at Onset Recorded Date/T sal father Heart disease Unknown Malignant neoplasm Unknown Cerebrovascular accident (CVA) Unknown Not Specified Heart disease Unknown Relationship Condition Age at Onset Recorded Date/T sal father Heart disease Unknown Malignant neoplasm Unknown Cerebrovascular accident (CVA) Unknown Not Specified Heart disease Unknown History of stroke Unknown Unknown Not Specified Malignant neoplasm Unknown Heart disease Unknown Relationship Condition Age at Onset Recorded Date/T sal father Heart disease Unknown Malignant neoplasm Unknown Cerebrovascular accident (CVA) Unknown mother Heart disease Unknown History of stroke Unknown Unknown mother Malignant neoplasm Unknown Heart disease Unknown Reason for Referral Status Reason Specialty Diagnoses / Procedures Referred By Contact Referred To Contact Pending Review Radiology Diagnoses Pain Procedures Fluoro For Surgical Procedures Usman Agustin MD [address], [address] [place] [address] Discharge Instructions * Instructions* Usman Agustin MD - 04/01/2020 medication given may have significant effects after discharge. Therefore on the day of surgery: 1) you should be accompanied by a responsible adult upon discharge and for 24 hours after surgery. Do not drive a motor vehicle, operate machinery, power tools or appliance, drink alcoholic beverages, or make critical decisions for 24 hours 2) Be aware of dizziness, which may cause a fall. Change positions slowly. 3) Eating: you may resume your regular diet but it is better to increase intake slowly with mild foods and working up to your regular diet. 4) Nausea/Vomiting: Nausea and vomiting may occur as you become more active or begin to increase food intake. If this should happen, decrease activity and return to liquids. 5) Pain: Your surgeon may have given you a prescription for pain medication. Take pain medication with food as prescribed. Pain medication may cause constipation, so drink plenty of fluids. You may need to use laxatives. 6) Ice: You may use a cool pack to operative site for 20 min 5-6 times a day as needed for comfort. 8) Dressing: Change dressing as frequently as needed to keep clean and dry. Remove all sticky tape in 5 days. May shower in three days. Do not put soap or soak on the incision until healed. 9) INCREASE ACTIVITY TOLERATED AND INSTRUCTED. GO BY HOW YOU FEEL. 10) See physical therapist when advised by your physician 11) Call your doctor at [phone] for an appointment (or follow up as scheduled). 12) If have an order for X-Rays have done within a week before your follow up appointment. ? Contact OFFICE IF o Increased redness, swelling, excess drainage, and/or pain to surgery site. As well as new onset fevers and or chills. These could signify an infection. o Calf or thigh tenderness to touch as well as increased swelling or redness. This could signify a clot formation. o Numbness or tingling to an area around the incision site or below the incision site (toes). Or ifthe operative extremity becomes cold, blue. o Any rash appears, increased or new onset nausea/vomiting occur. This may indicate a reaction to amedication. o Temp is 38.5 C (101F) 12) If you have any concerns or questions, please call OFFICE. The 24- hour phone is [phone] 13) If you are unable to contact your surgeon, in an emergency situation, go to the nearest hospital emergency room. 14) shower on Sunday 15) do not drive 16) ice pack to the incision 17) cervical collar as needed documented in this encounter Chief Complaint and Reason for Visit Chief Complaint Admit Date eye pain March 31, 2024 2 :52pm Fall on 04/06, hurt back April 07 11:32am Reason for Visit Admit Date Visual problems March 31, 2024 2 :52pm Chief Complaint Amb Documentation Amb Documentation lump in throat Chief Complaint Amb Documentation Amb Documentation lump in throat lump in neck, right heel pain Reason for Visit Acute sinusitis, uns pecified Mass of right side of neck Right foot pain Chief Complaint PAP Reason for Visit Constipation Fatigue Well woman exam Chief Complaint Admit Date eye pain March 31, 2024 2 :52pm Reason for Visit Admit Date Visual problems March 31, 2024 2 :52pm Chief Complaint Admit Date eye pain March 31, 2024 2 :52pm Fall on 04/06, hurt back April 07 11:32am Additional Source Comments INFORMATION SOURCE (unrecogn ized section and content) DATE CREATED AUTHOR 03/31/2020 [facility] DATE CREATED AUTHOR AUTHOR'S ORGANIZ ATION [facility] [place] DATE CREATED AUTHOR AUTHOR'S ORGANIZ ATION 03/15/2022 [facility] DATE CREATED AUTHOR AUTHOR'S ORGANIZ ATION 11/23/2023 [facility] Reason for Visit (unrecogniz ed section and content) Status Reason Specialty Diagnoses / Procedures Re ferred By Contact Referred To Contact Diagnoses Herniation of cervical intervertebral disc with radiculopathy DISC HERNIATION RADICULOPATHY DEGENERATIVE DISC DISEASE Procedures AK DISK SURG,ANTER,CERVICAL,SINGL E LVL A.C.D.F. ( ANTERIOR CERVICAL DISKECTOMY FUSION) C5-6 1 HR/ I C-ARM, NUVASIVE/ S.S.EUsman Maldonado MD [address], [address] [place] [address] [facility] Ordered Prescriptions (unrec ognized section and content) Prescription Sig Dispensed Refills Start Date End Da te senna (SENOKOT) 8.6 MG tablet Take 2 tablets by mouth 2 times daily for 14 days 56 tablet 0 04/01/2020 04/15/2020 cephALEXin (KEFLEX) 500 MG capsule Take 1 capsule by mouth 3 times daily for 7 days 21 capsule 0 04/01/2020 04/08/2020 HYDROcodone-acetaminoph en (NORCO) 5-325 MG per tabletIndications:Posto perative pain Take 1 tablet by mouth every 6 hours as needed for Pain for up to 14 days. Intended supply: 5 days. Take lowest dose possible to manage pain 40 tablet 0 04/01/2020 04/15/2020 Care Teams (unrecognized sec tion and content) Team Status: Active Member Role Status Dates Emma Aguilar MD Primary Care Provider Active Team Status: Inactive Member Role Status Dates Emma Aguilar MD Primary Care Provide r, Attending Provider Active Start: November 15, 2023 End: November 15, 2023 Team Status: Inactive Member Role Status Dates Emma Aguilar MD Primary Care Provider Active Musa Steward MD Attending Provider Active Team Status: Active Member Role Status Dates Emma Aguilar MD Primary Care Provider Active Start: May 18, 2023 Ann Burris Attending Provider Active Start: [place] 2023 Team Status: Active Member Role Status Dates Emma Aguilar MD Primary Care Provider Active Start: May 21, 2023 JYOTI Hogue Attending Provider Active Start : May 21, 2023 Team Status: Inactive Member Role Status Dates Emma Aguilar MD Primary Care Provide r, Attending Provider Active Start: July 10, 2023 End: July 10, 2023 Team Status: Inactive Member Role Status Dates Emma Aguilar MD Primary Care Provide r, Attending Provider Active Start: July 26, 2023 End: July 26, 2023 Team Status: Inactive Member Role Status Dates Emma Aguilar MD Primary Care Provide r, Attending Provider Active Start: March 31, 2024 End: March 31, 2024 Team Status: Inactive Member Role Status Dates Emma Aguilar MD Primary Care Provide r, Attending Provider Active Start: April 07, 2024 End: April 07, 2024 Goals (unrecognized section and content) Goals may be documented in a n alternate section FOR RECORDS PERTAINING TO PATIENTS WHO ARE OR HAVE BEEN ENROLLED IN A CHEMICAL DEPENDENCY/SUBSTANCEABUSE PROGRAM, SOME INFORMATION MAY BE OMITTED. This clinical summary was aggregated from multiple sources. Caution should be exercised in using it in the provision of clinical care. This summary normalizes information from multiple sources, and as a consequence, information in this document may materially change the coding, format and clinical context of patient data. In addition, data may be omitted in some cases. CLINICAL DECISIONS SHOULD BE BASED ON THE PRIMARY CLINICAL RECORDS. [facility]. provides no warranty or guarantee of the accuracy or completeness of information in this document.
== END 2024-09-05 07:41 | disposition home or self-care (01) ==
LOC: MAMMO 07:40
PROVIDERS: PCP Family Medicine; Visit Provider Family Medicine
DX: Z12.31 Encounter for screening mammogram for malignant neoplasm of breast (principal)
CPT/HCPCS: 77063; 77067

== ENCOUNTER 2024-10-10 08:37 | Emergency (ER) | payer BC, SELFPAY ==
[2024-10-10] VITALS (18 sets, daily range): BP systolic 152–192; BP diastolic 98–111; PULSE 84–100; TEMP 36.7; O2SAT 90–99; BMI 32.9
--- NOTE | 2024-10-10 08:53 | ECG_ITS ---
[facility] Test Date: 2024-10-10 Pat Name: AQUILES CRUM Department: Room: - Gender: Female Mutton Puncher: : 1965 Requested By: MADALYN AGUILAR Order Number: [id number] Miguel MD: ISA KITCHEN M.D. Measurements Intervals Rodney Rate: 98 P: 47 MN: 144 QRS: 37 QRSD: 90 T: 52 QT: 378 QTc: 433 Interpretive Statements 1100 Sinus rhythm 9110 normal ECG Compared to ECG 08/19/2019 07:18:44 Sinus tachycardia no longer present Electronically Signed On 10-11-2024 8:17:02 EDT by ISA KITCHEN M.D.
--- NOTE | 2024-10-10 08:53 | CT_ITS ---
The [address] [address] Patient Name: AQUILES CRUM MRN: [id number] date: 1965 Sex: F Assigned Patient Location: ER Current Patient Location: ER Accession/Order Number: [id number] Exam Date: 10/10/2024 09:45 Report Date: 10/10/2024 09:47 At the request of: JOSEFINA SAVAGE MD Procedure: CT head/brain wo con CT BRAIN WITHOUT CONTRAST: CLINICAL HISTORY: vertigo dizziness, worse with movement COMPARISON: None TECHNIQUE: Contiguous axial unenhanced images were obtained through the brain. This CT exam was performed using one or more following dose reduction techniques: Automated exposure control, adjustment of the mA and/or kV according to patient size, or use of iterative reconstruction technique. FINDINGS: There is no evidence of midline shift, intra or extra-axial fluid collection, hemorrhage or CT evidence acute large vascular lesion stroke. Suspect mild tortuosity of the basilar artery. Visualized intraorbital contents appear unremarkable. Visualized paranasal sinuses are clear. The surrounding soft tissues are normal. CT/CT head/brain wo con IMPRESSION: NO ACUTE INTRACRANIAL ABNORMALITY. Impression dictated by: Vicente Sapp M.D. 10/10/2024 9:47 AM Dictation Location: [place] [address] Electronically authenticated by: [id number] Y Date: 10/10/2024 09:47
--- NOTE | 2024-10-10 08:55 | ED.GENADUL1 ---
HPI HPI - General Adult General Chief complaint: Dizziness Stated complaint: VERTIGO NAUSEA Time Seen by Provider: 10/10/24 08:44 Source: patient Mode of arrival: walk-in History of Present Illness HPI narrative: 59-year-old female presents to the emergency department for a chief complaint of vertigo. She has had this for about 8 days. She saw her doctor who gave her some medication for it but it did not seem to help. Her symptoms have not improved. It feels better when she lays still and does not turn her head and it is worse if she moves. No localized weakness. No injury or fever. Related Data Home Medications ?Medication ?Instructions ?Recorded ?Confirmed duloxetine 60 mg capsule,delayed 60 mg PO DAILY 10/10/24 10/10/24 release meloxicam 15 mg tablet 15 mg PO DAILY 10/10/24 10/10/24 Previous Rx's ?Medication ?Instructions ?Recorded diazepam 5 mg tablet (Valium) 2.5 mg (1/2 x 5 mg) PO TID-QID PRN 10/10/24 vertigo 5 days #20 tabs Allergies Allergy/AdvReac Type Severity Reaction Status Date / Time No Known Drug Allergies Allergy Verified 10/10/24 08:42 Review of Systems ROS Narrative A ten point review of systems is negative except as noted above. PFSH PFSH Social History Little interest or pleasure in doing things: not at all Feeling down, depressed, or hopeless: not at all Exam Narrative Exam Narrative: Nurses note and vital signs reviewed and patient is not hypoxic. General: The patient is laying on the cart with her eyes closed. Skin: Warm, dry, no pallor noted. There is no rash noted. Head: Normocephalic, atraumatic Eye: Normal conjunctiva, no drainage, EOMI. PERRL Ears, Nose, Mouth, and Throat: oral mucosa is moist. Nares patent. Cardiovascular: Regular Rate and Rhythm Respiratory: Patient is in no distress, no accessory muscle use, lungs are clear to auscultation, no wheezing, rales or rhonchi Back: non-tender, no CVA tenderness bilaterally to percussion. GI: Soft and nontender Musculoskeletal: The patient has no evidence of calf tenderness, no pitting edema, symmetrical pulses noted bilaterally Neurological: A&O x4, normal speech; upper and lower extremity strength 5 out of 5 and symmetric. Cranial nerves II through XII intact. Psychiatric: Cooperative Constitutional Vital Signs, click to edit/add: Last Vital Signs Temp 98.0 F 10/10/24 08:42 Pulse 92 H 10/10/24 08:42 Resp 16 10/10/24 08:42 BP 192/108 H 10/10/24 08:42 Pulse Ox 96 10/10/24 08:42 O2 Del Method Room Air 10/10/24 08:42 Course Vital Signs Vital signs: Vital Signs Temperature 98.0 F 10/10/24 08:42 Pulse Rate 92 H 10/10/24 08:42 Respiratory Rate 16 10/10/24 08:42 Blood Pressure 192/108 H 10/10/24 08:42 Pulse Oximetry 96 10/10/24 08:42 Oxygen Delivery Method Room Air 10/10/24 08:42 Temperature 98.0 F 10/10/24 08:42 Pulse Rate 92 H 10/10/24 08:42 Respiratory Rate 16 10/10/24 08:42 Blood Pressure 192/108 H 10/10/24 08:42 Pulse Oximetry 96 10/10/24 08:42 Oxygen Delivery Method Room Air 10/10/24 08:42 Medical Decision Making MDM Narrative Medical decision making narrative: Her workup is negative including CT of the brain. She is feeling improved after IV Valium and she will be discharged home on Valium. Blood pressure was also mildly elevated but is improving and she was recommended blood pressure recheck from her doctor next week. Treatment diagnosis and follow-up were discussed with the patient. Differential Diagnosis Differential Diagnosis: Vertigo, intracranial hemorrhage, hypertension Lab Data Lab results reviewed: Yes I reviewed the patient's lab results Labs: Lab Results 10/10/24 Range/Units 08:55 WBC 7.5 (4.0-11.0) 10^3/uL RBC 5.06 (4.20-5.40) 10^6/uL Hgb 14.7 (12.0-16.0) g/dL Hct 44.4 (36.0-48.0) % MCV 87.7 (81.0-99.0) fL MCH 29.1 (26.7-34.0) pg MCHC 33.1 (29.9-35.2) g/dL RDW 13.2 (11.0-15.0) % Plt Count 287 (150-450) 10^3/uL MPV 9.5 (9.5-13.5) fL Neut % (Auto) 78.4 H (43.0-75.0) % Lymph % (Auto) 14.8 L (20.5-60.0) % [place] % (Auto) 5.7 (1.7-12.0) % Eos % (Auto) 0.4 L (0.9-7.0) % Baso % (Auto) 0.4 (0.2-2.0) % Neut # (Auto) 5.9 (1.4-6.5) 10^3/uL Lymph # (Auto) 1.1 L (1.2-3.8) 10^3/uL [place] # (Auto) 0.4 (0.3-0.8) 10^3/uL Eos # (Auto) 0.0 (0.0-0.7) 10^3/uL Baso # (Auto) 0.0 (0.0-0.1) 10^3/uL Abs Immat Gran (auto) 0.02 (0.00-0.03) 10^3/uL Imm/Tot Granulo (auto) 0.3 (0.0-0.5) % Sodium 140 (136-145) mmol/L Potassium 4.0 (3.5-5.1) mmol/L Chloride 101 (98-107) mmol/L Carbon Dioxide 28.6 (21.0-32.0) mmol/L Anion Gap 14.4 BUN 10.0 (7.0-18.0) mg/dL Creatinine 0.54 L (0.55-1.02) mg/dL Est GFR ( Amer) >60 (>=60 mL/min/1.73m^2) Est GFR (Non-Af Amer) >60 (>=60 mL/min/1.73m^2) BUN/Creatinine Ratio 18.5 Glucose 130 H (74-106) mg/dL Calcium 9.9 (8.5-10.1) mg/dL Imaging Data CT scan - head: Radiologist's impression: ITS Impressions Head CT 10/10/24 08:53 IMPRESSION: NO ACUTE INTRACRANIAL ABNORMALITY. Impression dictated by: Vicente Sapp M.D. 10/10/2024 9:47 AM Dictation Location: [place] [address] Electronically authenticated by: [id number] Y Date: 10/10/2024 09:47 ECG Data Attestation: I personally reviewed and interpreted this ECG as follows: (EKG on my interpretation shows sinus rhythm with rate of 98 and no acute) Discharge Plan Discharge Chief Complaint: Dizziness Clinical Impression: Vertigo Patient Disposition: Home, Self-Care Time of Disposition Decision: 10:06 Condition: Good Mode of Transportation: Private Vehicle Prescriptions / Home Meds: New diazepam [Valium] 5 mg tablet 2.5 mg PO TID-QID PRN (Reason: vertigo) 5 Days Qty: 20 0RF No Action meloxicam 15 mg tablet 15 mg PO DAILY duloxetine 60 mg capsule,delayed release(DR/EC) 60 mg PO DAILY Print Language: [place] Instructions: Vertigo (ED) Additional Instructions: Blood pressure check from your doctor next week. Referrals: Emma Arriola MD [Primary Care Provider, Family Practice] - 1 week
--- OUTSIDE RECORDS SUMMARY | 2024-10-10 09:06 | XMS_ITS | CCD ---
Author Organization [facility] Care Team Providers Care [employer] Jointer Name Role Phone Emma Aguilar Primary Care Provider EMMA AGUILAR Primary Care Unavailable VAMSI, USMAN H. Referring Unavailable EMMA AGUILAR Primary Care Unavailable VAMSI, USMAN H. Attending Unavailable VAMSI, USMAN H. Referring Unavailable EMMA AGUILAR Primary Care Unavailable VAMSI, USMAN H. Admitting Unavailable VAMSI, USMAN H. Attending Unavailable Andrew Smith Unavailable REQUEST, NONE LISTED Admitting Unavaila ble REQUEST, NONE LISTED Attending Unavaila ble LAUREN, DR EMMA Garcia Primary Care Unavailable REQUEST, NONE LISTED Consulting Unavaila ble LAUREN, DR EMMA Garcia Admitting Unavailable AGUILAR, DR EMMA Garcia Attending Unavailable LAUREN, DR EMMA Garcia Primary Care Unavailable SERENE, DR MODE Barnes Consulting Unavailable LAUREN, DR EMMA Garcia Consulting Unavailable LAUREN, DR EMMA Garcia Admitting Unavailable AGUILAR, DR EMMA Garcia Attending Unavailable AGUILAR, DR EMMA Garcia Primary Care Unavailable ZIEBJINNY, DR MODE Barnes Consulting Unavailable LAUREN, DR EMMA Garcia Consulting Unavailable MD Emma Aguilar Primary Care Provider [phone] MD Musa Steward Attending Provider [phone] Emma Aguilar Unavailable Emma Aguilar Attending Unavailable Emma Aguilar Primary Care Unavailable Emma Aguilar Admitting Unavailable Emma Aguilar MD Primary Care Provider [phone] Emma Aguilar MD Attending Provider [phone] Allergies Allergy Classification Reported Allergen(s) Allergy Type Date of Onset Reaction(s) Facility (3 sources) Acetaminophen / HYDROcodone Drug Allergy 021 Nausea Only [place], [place] (12 sources) Azithromycin Drug Allergy 013 Nausea Only [place] Comment on above: Onset Date: 12/09/2012 (19 sources) Codeine Drug Allergy Nausea Only [facility] (10 sources) oxyCODONE Drug Allergy Nausea Only [facility] (3 sources) Sulfonamides (Antibiotic) Propensity to adverse reactions to drug Nausea Only [facility] (9 sources) Acetaminophen / oxyCODONE Drug Allergy stomach upset [place] Other (8 sources) Acetaminophen; Translations: [acetaminophen] Drug Allergy Gastrointestinal Upset, Gastrointestinal Upset, stomach upset [facility] Comment on above: Onset Date: 12/09/2012 (3 sources) Sulfamethoxazole / Trimethoprim Drug Allergy Unknown [place] Other (3 sources) Vicodin *ANALGESICS - OPIOID* Propensity to adverse reactions Unknown [place] Other (3 sources) Cosmetics Propensity to adverse reactions Unknown [place] Other (7 sources) HYDROcodone; Translations: [hydrocodone] Drug Allergy 024 [facility] Comment on above: Onset Date: 12/09/2012 (7 sources) Sulfamethoxazole; Translations: [sulfamethoxazole] Drug Allergy 024 [facility] Comment on above: Onset Date: 12/09/2012 (7 sources) Trimethoprim; Translations: [trimethoprim] Drug Allergy 024 [facility] Comment on above: Onset Date: 12/09/2012 (7 sources) cosmetic; Translations: [cosmetic] Allergy to substance [facility] Comment on above: Onset Date: 12/09/2012 (1 source) Azithromycin Drug Allergy 024 [facility] (1 source) Codeine Drug Allergy [facility] (1 source) oxyCODONE Drug Allergy [facility] Medications Current Medications Medication Drug Class(es) [...] Serotonin and Norepinephrine Reuptake Inhibitor Start: 03-20-2024 End: 08-28-2024 take 1 capsule by mouth once daily Duloxetine 60 mg capsule,delayed release(DR/EC) Active 0 .ROUTE .COMPLEX 90 August 28, 2024 10:51am TAKE 1 CAPSULE BY MOUTH EVERY DAY Complies with drug therapy Start: 11-21-2023 End: 03-20-2024 take 1 capsule by mouth once daily Duloxetine 30 mg capsule,delayed release(DR/EC) Discontinued 0 .ROUTE .COMPLEX November 21, 2023 1:24pm March 20, 2024 2:12pm TAKE 1 CAPSULE BY MOUTH EVERY DAY Start: 09-17-2023 End: 11-21-2023 take 1 capsule by mouth once daily Duloxetine 60 mg capsule,delayed release(DR/EC) Discontinued 0 .ROUTE .COMPLEX September 17, 2023 8:30am November 21, 2023 1:24pm TAKE 1 CAPSULE BY MOUTH EVERY DAY Start: 05-18-2023 End: 09-17-2023 take 1 capsule by mouth once daily Duloxetine 30 mg capsule,delayed release(DR/EC) Discontinued 30 MG PO Daily May 21, 2023 4:05pm September 17, 2023 8:30am take 1 capsule by [facility] every twenty-four hours DULoxetine HCl 30 MG 1 capsule Orally Once a day for 30 days Total 90mg daily Active take 1 capsule by [facility] once daily DULoxetine HCl 60 MG TAKE [...] lidocaine PF 1 % injection 1 mL meclizine hydrochloride 12.5 mg oral tablet (1 source) Antiemetic Start: 10-03-2024 take 1 tablet by mouth three times daily as needed for dizziness Meclizine 12.5 mg tablet Active 12.5 MG PO Three times daily as needed for dizziness October 03, 2024 12:00am Complies with drug therapy Medrol Dose Pack as directed (3 sources) Start: 01-13-2021 Medrol Dose Pack as directed as directed orally as directed [...] bid for 5 day(s) Nov, Active sennosides, chcf 8.6 mg oral tablet (2 sources) Start: 04-01-2020 End: 04-15-2020 take 2 tablets by mouth twice daily senna (SENOKOT) 8.6 MG tablet Take 2 tablets by mouth 2 times daily for 14 days 56 tablet 0 04/01/2020 04/15/2020 Active Completed/Discontinued Medications Medication Drug Class(es) Dates Sig (Normalized) Sig (Original) cefdinir 300 mg oral capsule (6 sources) Cephalosporin Antibacterial Start: 07-10-2023 End: 11-15-2023 take 1 capsule by mouth twice daily Cefdinir 300 mg capsule Discontinued 300 MG PO Twice daily July 10, 2023 12:00am November 15, 2023 10:46am cyclobenzaprine hydrochloride 5 mg oral tablet (11 sources) Muscle Relaxant Start: 01-12-2021 End: 07-10-2023 Cyclobenzaprine 5 mg tablet Discontinued 5 MG PO As Directed January 12, 2021 12:00am July 10, 2023 11:08am Cyclobenzaprine HCl Active Levonorgestrel-Ethinyl Estrad (16 sources) Progestin, Estrogen, Progestin-containing Intrauterine Device Start: [...] sources) Nonsteroidal Anti-inflammatory Drug Start: 05-17-2023 End: 08-28-2024 take 1 tablet by mouth once daily Meloxicam 15 mg tablet Discontinued 0 .ROUTE .COMPLEX November 15, 2023 10:58am February 21, 2024 9:38am TAKE 1 TABLET BY MOUTH EVERY DAY Start: 11-23-2020 End: 05-17-2023 take 1 tablet by mouth once daily as needed for pain Meloxicam 15 mg tablet Discontinued 15 MG PO Daily as needed for Pain December 01, 2020 12:00am May 17, 2023 3:23pm sodium chloride 0.154 meq/ml irrigation solution (5 [...] Factor Start: 04-01-2020 End: 04-01-2020 thrombin kit tiZANidine 4 mg oral tablet (2 sources) Central alpha-2 Adrenergic Agonist Start: 04-07-2024 End: 08-28-2024 take 1 tablet by mouth every eight hours as needed Tizanidine 4 mg tablet Discontinued 4 MG PO Every 8 hours as needed for muscle spasticity April 07, 2024 1:00am August 28, 2024 10:36am topical skin adhesive stick (1 source) Start: 04-01-2020 End: 04-01-2020 topical skin adhesive stick traMADol hydrochloride 50 mg oral tablet (13 sources) Opioid Agonist Start: 11-23-2020 End: 12-22-2020 take 1 tablet by mouth twice daily as needed for pain Tramadol 50 mg tablet Discontinued 50 MG PO Twice daily as needed for Pain December 01, 2020 12:00am December 22, 2020 8:02am Problems Active Problems Problem Classification Problem Date Documented Da te Episodic/Chronic Abdominal pain (18 sources) Epigastric pain; Translations: [Epigastric pain] Episodic Blindness and vision defects (5 sources) Disorder of vision; 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] 03-31-2024 Chronic Headache; including migraine (12 sources) Headache; Translations: [Headache] Onset: 05-19-2014 Episodic Immunizations and screening for infectious disease (3 sources) Vaccination given; Translations: [Encounter for immunization] Episodic Inflammation; infection of eye (except that caused by tuberculosis or sexually transmitteddisease) (1 source) Unspecified acute conjunctivitis, left eye Episodic Malaise and fatigue (8 sources) Fatigue; Translations: [Other fatigue] Onset: 05-07-2015 11-15-2023 Episodic Osteoarthritis (2 sources) Osteoarthritis; Translations: [Unspecified osteoarthritis, unspecified site] 08-28-2024 Chronic Other circulatory disease (3 sources) Elevated blood-pressure reading without diagnosis of hypertension; Translations: [Elevated blood-pressure reading, without diagnosis of hypertension] Episodic Other connective tissue disease (7 sources) Fibromyalgia; Translations: [Fibromyalgia] 11-15-2023 Episodic Other connective tissue disease (2 sources) Fibromyalgia Episodic Other connective tissue disease (4 sources) Foot pain; Translations: [Pain in right foot] 07-26-2023 Episodic Other connective tissue disease (1 source) Pain in right foot; Translations: [Pain in limb] 07-26-2023 Episodic Other connective tissue disease (1 source) Pain in right foot; Translations: [Pain in right foot] 07-26-2023 Episodic Other gastrointestinal disorders (4 sources) Constipation; Translations: [Constipation, unspecified] 11-15-2023 Episodic Other gastrointestinal disorders (1 source) Constipation, unspecified; Translations: [Constipation, unspecified] 11-15-2023 Episodic Other injuries and conditions due to external causes (1 source) Other specified injuries of thorax, initial encounter; Translations: [Contusion of rib on left side] 04-07-2024 Episodic Other nervous system disorders (9 sources) [...] conditions (not mental disorders or infectious disease) (6 sources) Encounter for screening mammogram for malignant neoplasm of breast; Translations: [Patient encounter status] Onset: 03-07-2022 Episodic Other skin disorders (5 sources) Mass of neck; Translations: [Localized swelling, mass and lump, neck] 07-26-2023 Episodic Other skin disorders (1 source) Localized swelling, mass and lump, neck; Translations: [Swelling, mass, or lump in head and neck] 07-26-2023 Episodic Other upper respiratory infections (3 sources) Chronic sinusitis; Translations: [Chronic sinusitis, unspecified] Chronic Other upper respiratory infections (15 sources) Acute sinusitis; Translations: [Acute sinusitis, unspecified] [...] PAP Chlamydia TUAN Negative Normal Negative [facility] Comment on above: Performed By: #### P AP #### [facility] , PAP Gonococcus Negative Normal Negative [facility] Comment on above: Result Comment: Perf ormed at: [place] - [facility] [address] [facility], [place] [id number] Hydraulic Controls Technician: Cheikh Reynoso PhD, Phone: [phone] Performed at: =G - [facility] [place] [address] [facility], [place] [id number] Hydraulic Controls Technician: Kristina Bonner MD, Phone: [phone] PERFORMED BY: [facility] [address] [place] [address] PATHOLOGIST TRAINS SERVICE CONDUCTOR TIFFANIE FLORES M.D. Performed By: #### P AP #### [facility] , Pap IG Note Normal . The [facility] Comment on above: Result Comment: TEST S RESULT FLAG UNITS REF RANGE LAB Clinician Provided Cytology Information No. of containers..01 ThinPrep Vial DIAGNOSIS: 01 NEGATIVE FOR INTRAEPITHELIAL LESION OR MALIGNANCY. Specimen adequacy: 01 Satisfactory for evaluation. No endocervical component is identified. Performed by: Ama Casanova, Head Custodian (ASCP) . 01 Note: Note 02 The Pap [...] High,A-Abnormal,AA-Critical Abnormal Performed at: 01 [place] [facility] [address] [facility] [address] Cheikh Reynoso PhD, 02 WB [facility] [address] [address] Kristina Bonner MD, Performed By: #### P AP [id number] #### [facility] , Creatine kinase [Enzymatic a ctivity/volume] in Serum or PlasmaOrdered By: Musa Steward on 04-04-2022 CK [Catalytic activity/Vol] 104 U/L 22-269 [facility] MG MAMM SCREEN 3D LATESHA CADon 03-07-2022 MG MAMM SCREEN 3D LATESHA CAD Patient: ANTOINETTE CRUM Exam Date: 03/07/2022 : 1965 Gender:F Ordering : DR EMMA AGUILAR M.D. Admission #: [id number] Family : Order #: [id number] CLICK HERE TO VIEW EXAM RADIOLOGY REPORT PROCEDURE: MAMMOGRAM SCREENING 3D BILATERAL CAD COMPARISON: MG MAMM SCREEN 3D LATESHA CAD, 12/06/2020. INDICATIONS: Screening mammography Calculator Name NCI Breast Cancer Risk Assessment Tool 5 Year Breast Cancer Risk 1.20% Lifetime Breast Cancer Risk 6.90% Personal Breast Cancer No Personal Ovarian Cancer No Treatments None Family Cancers None LOCATION: The [facility] BREAST COMPOSITION: Scattered areas fibroglandular density. FINDINGS: [...] Gomez M.D. on 03/08/2022 at 10:09 Normal [facility] GILSON - TSHon 2021 TSH 0.755 uIU/mL Normal 0.358-3.740 [facility] Comment on above: Performed By: #### D ATTSH #### [facility] [address] [address] [address] Lesley Ghosh TSH RANGE SEE BELOW Normal [facility] Comment on above: Result Comment: <0.3 4 UIU/ml HYPERTHYROID 0.34-5.60 UIU/ml EUTHYROID >5.60 UIU/ml HYPOTHYROID Performed By: #### D ATTSH #### [facility] [address] [address] [address] Lesley Ghosh US THYROIDon 09-09-2021 US THYROID EXAMINATION: US THYROID HISTORY: Disorder [...] by: MODE GOMEZ Date: 2021-09-09 11:21 Normal [facility] FLUORO FOR SURGICAL PROCEDUR ESon 04-01-2020 FLUORO FOR SURGICAL PROCEDURES : 04/01/2020 11:23 AM CLINICAL HISTORY: R52 Pain ICD10. COMPARISON: None available. Intraoperative fluoroscopy was provided for Dr. Vamsi llanos. A total of 62.1 seconds of fluoroscopy was used, with 7 fluoroscopic stills saved. No diagnostic images were obtained. Please see Dr. Agustin surgical notes for completeness. [place], [place] Samuel, Chpo Incoming Radiant Results From [facility] - 04/01/2020 2:01 PM EST FLUORO FOR SURGICAL PROCEDURES : 04/01/2020 11:23 AM CLINICAL HISTORY: R52 Pain ICD10. COMPARISON: None available. Intraoperative fluoroscopy was provided for Dr. Vamsi llanos. A total of 62.1 seconds of fluoroscopy was used, with 7 fluoroscopic stills saved. No diagnostic images were obtained. Please see Dr. Agustin surgical notes for completeness. [place] FLUORO FOR SURGICAL PROCEDURES FLUORO FOR SURGICAL [...] Naldo Latham MD 04/01/20 Final result Normal [facility] POC Urine Qualon 0 04-01-2020 Beta HCG ( test) Ql (U) Negative Negative [place] Beta HCG ( test) Ql (U) [id number] [place] Negative QC Pass/Fail Pass [place] Positive QC Pass/Fail Pass [place] Surgical Specimenon 04-01-19 21 Surgical Specimen [facility] [address] [place] [address] FINAL SURGICAL PATHOLOGY REPORT Patient Name: ANTOINETTE CRUM Accession No: [id number] Age Sex: 1965 Location[facility] Account No: [id number] Collected: 04/01/2020 Med Rec No: [id number] Received: 04/02/2020 Attend Phys: USMAN AGUSTIN Completed: 04/07/2020 Perform Phys: USMAN AGUSTIN FINAL DIAGNOSIS: DISC: PORTIONS OF NUCLEUS PULPOSIS WITH DEGENERATIVE CHANGES SMALL PORTION OF BONE JACMO/JACMO CLINICAL INFORMATION: Disc herniation, radiculopathy, degenerative disc disease. SPECIMEN: Disc GROSS DESCRIPTION: Specimen received in formalin in a container labeled with patient's name and designated as spine , consists of multiple grayish-white soft to firm tissue fragments measuring in aggregate 2.0 x 1.5 x 0.3 cm. Specimen is submitted in toto in one cassette after brief decalcification. JAYDEN/DANIELLE CPT: 18505 X1 43983 X1 J PARUL PORTER M.D. 04/07/2020 Electronically signed out by Page 1 of 1 [facility] Comment on above: Performed By: #### S UR #### [facility] [address] [place] [id number] COVID-19, NAAon 03-27-2020 COVID-19, TUAN Not Detected Normal Not Detect [facility] Comment on above: Result Comment: This nucleic acid amplification test was developed and its performance characteristics determined by [employer] Nucleic acid amplification tests include PCR and [...] detected) result in this assay. Performed at: [facility] [address] [employer] [facility], [place] [id number] Hydraulic Controls Technician: Prasad Heath MD, Phone: [phone] Performed By: #### I RCOV #### [facility] [address] [place] [address] Basic Metabolic Panelon 01-0 Anion gap [Moles/Vol] 12 mmol/L Normal 9-15 [facility] Comment on above: Performed By: #### B MP #### [facility] [address] [place] [address] Calcium [Mass/Vol] 9.0 mg/dL Normal 8.5-9.9 [facility] Comment on above: Performed By: #### B MP #### [facility] [address] [place] [address] Chloride [Moles/Vol] 99 mmol/L Normal 95-107 [facility] Comment on above: Performed By: #### B MP #### [facility] [address] [place] [address] CO2 [Moles/Vol] 25 mmol/L Normal 20-31 [facility] Comment on above: Performed By: #### B MP #### [facility] [address] [place] [address] Creatinine [Mass/Vol] 0.65 mg/dL Normal 0.50-0.90 [facility] Comment on above: Performed By: #### B MP #### [facility] [address] [place] [address] GFR/1.73 sq M predicted among blacks MDRD (S/P/Bld) [Vol rate/Area] mL/min/{1.73_m2} Normal >60 [facility] Comment on above: Result Comment: >60 mL/min/1.73m2 EGFR, calc. for ages 18 and older using the MDRD formula (not corrected for weight), is valid for stable renal function. Performed By: #### B MP #### [facility] [address] [place] [address] GFR/1.73 sq M.predicted MDRD (S/P/Bld) [Vol rate/Area] mL/min/{1.73_m2} Normal >60 [facility] Comment on above: Result Comment: >60 mL/min/1.73m2 EGFR, calc. for ages 18 and older using the MDRD formula (not corrected for weight), is valid for stable renal function. Performed By: #### B MP #### [facility] [address] [place] [address] Glucose [Mass/Vol] 152 mg/dL Critically high 70-[address] [facility] Comment on above: Performed By: #### B MP #### [facility] [address] [place] [address] Potassium [Moles/Vol] 3.7 mmol/L Normal 3.4-4.9 [facility] Comment on above: Performed By: #### B MP #### [facility] [address] [place] [address] Sodium [Moles/Vol] 136 mmol/L Normal 135-144 [facility] Comment on above: Performed By: #### B MP #### [facility] [address] [place] [address] Urea nitrogen [Mass/Vol] 10 mg/dL Normal 6-20 [facility] Comment on above: Performed By: #### B MP #### [facility] [address] [place] [address] Anion gap [Moles/Vol] 12 mmol/L [facility] Calcium [Mass/Vol] 9.0 mg/dL 8.5 - 9.9 mg/dL [facility] Chloride [Moles/Vol] 99 mmol/L [facility], [place] CO2 [Moles/Vol] 25 mmol/L [facility] [place], [place] Creatinine [Mass/Vol] 0.65 mg/dL 0.5 - 0.9 mg/dL [facility] GFR >60.0 >60 [facility] [place], [place] Comment on above: >60 mL/min/1.73m2 EG FR, calc. for ages 18 and older using the MDRD formula (not corrected for weight), is valid for stable renal function. GFR Non- >60.0 >60 [place] Comment on above: >60 mL/min/1.73m2 EG FR, calc. for ages 18 and older using the MDRD formula (not corrected for weight), is valid for stable renal function. Glucose [Mass/Vol] 152 mg/dL High 70 - 99 mg/dL [place], [place] Interpretation and review of laboratory results Abnormal [place] Potassium [Moles/Vol] 3.7 mmol/L [place] Sodium [Moles/Vol] 136 mmol/L [place] Urea nitrogen [Mass/Vol] 10 mg/dL 6 - 20 mg/dL [place] CBCon 03-26-2020 Erythrocyte distribution width (RBC) [Ratio] 14.7 % High 11.5 - 14.5 % [place] Hematocrit (Bld) [Volume fraction] 36.0 % Low 37 - 47 % [place] Hemoglobin (Bld) [Mass/Vol] 12.1 g/dL 12 - 16 g/dL [place] Interpretation and review of laboratory results Abnormal [place] MCH (RBC) [Entitic mass] 29.0 pg 27 - 31.3 pg [place] MCHC (RBC) [Mass/Vol] 33.7 % 33 - 37 % [place] MCV (RBC) [Entitic vol] 86.0 fL 82 - 100 fL [place] Platelets (Bld) [#/Vol] 289 10*3/uL 130 - 400 K/uL [place] RBC (Bld) [#/Vol] 4.18 10*6/uL Low [place] WBC (Bld) [#/Vol] 5.4 10*3/uL 4.8 - 10.8 K/uL [place] CBC With Platelet No Differe ntialon 03-26-2020 Erythrocyte distribution width (RBC) [Ratio] 14.7 % Critically high 11.5-14.5 [facility] Comment on above: Performed By: #### C BCND #### [facility] [address] [place] [address] Hematocrit (Bld) [Volume fraction] 36.0 % Low 37.0-47.0 [facility] Comment on above: Performed By: #### C BCND #### [facility] [address] [place] [address] Hemoglobin (Bld) [Mass/Vol] 12.1 g/dL Normal 12.0-16.0 [facility] Comment on above: Performed By: #### C BCND #### [facility] [address] [place] [address] MCH (RBC) [Entitic mass] 29.0 pg Normal 27.0-31.3 [facility] Comment on above: Performed By: #### C BCND #### [facility] [address] [place] [address] MCHC (RBC) [Mass/Vol] 33.7 % Normal 33.0-37.0 [facility] Comment on above: Performed By: #### C BCND #### [facility] [address] [place] [address] MCV (RBC) [Entitic vol] 86.0 fL Normal 82.0-100.0 [facility] Comment on above: Performed By: #### C BCND #### [facility] [address] [place] [address] Platelets (Bld) [#/Vol] 289 10*3/uL Normal 130-400 [facility] Comment on above: Performed By: #### C BCND #### [facility] [address] [place] [address] RBC (Bld) [#/Vol] 4.18 10*6/uL Low 4.20-5.40 [facility] Comment on above: Performed By: #### C BCND #### [facility] [address] [place] [address] WBC (Bld) [#/Vol] 5.4 10*3/uL Normal 4.8-10.8 [facility] Comment on above: Performed By: #### C BCND #### [facility] [address] [place] [address] COVID-19, NAAon 03-26-2020 Source Swab Anterior nares Normal [facility] Comment on above: Performed By: #### I RCOV #### [facility] [address] [place] [address] EKG 12 Leadon 03-26-2020 Atrial Rate 100 BPM [facility] P [place] 53 degrees [facility] P-R Interval 148 ms [facility], [place] Q-T Interval 370 ms [facility] QRS Duration 84 ms [facility] QTc Calculation (Bazett) 477 ms [facility] R [place] 46 degrees [facility] [place], [place] T [place] 66 degrees [facility] Ventricular Rate 100 BPM [facility], [place] Normal sinus rhythm Possible Left atrial enlargement Borderline ECG No previous ECGs available Confirmed by Fay Jacob ([id number]) on 03/26/2020 2:26:04 PM [facility] Samuel, Chpo Incoming Results From [place] - 03/26/2020 2:26 PM EST Normal sinus rhythm Possible Left atrial enlargement Borderline ECG No previous ECGs available Confirmed by Fay Jacob ([id number]) on 03/26/2020 2:26:04 PM [facility] Prothrombin Timeon INR Coag (PPP) [Relative time] 1.0 {INR} Normal [facility] Comment on above: Performed By: #### P T #### [facility] [address] [place] [address] PT Coag (PPP) [Time] 12.9 s Normal 12.3-14.9 [facility] Comment on above: Performed By: #### P T #### [facility] [address] [place] [address] Protime-INRon 03-26-2020 INR Coag (PPP) [Relative time] 1.0 {INR} [facility] [place], [place] PT Coag (PPP) [Time] 12.9 s Belinda singh [facility]- [place], [place] TYPE AND SCREENon 03-26-2020 ABO/Rh Positive Gloria LumiFold, TAMY Confirmation type needs to be drawn. [facility] War[facility]- [place], [place] Type and Screen Capture 3 sc rn cellon 03-26-2020 Type and Screen Capture 3 scrn cell PATIENT: SKYLA Maldonado LOC: [facility] BILL# : [id number] : 1965 SEX: F ORDERED BY: KRAIG Marie ORDERED : 03/26/2020 11:48 COLLECTED: 03/26/2020 14:06 ORDER : [id number] RECEIVED : 03/26/2020 14:06 Confirmation type needs to be drawn. TEST NAME RESULT UNITS RANGES ABN FL ST ABORH Capture A POS F Antibody 3 Cell Scrn Captu NEG F Normal [facility] Comment on above: Performed By: #### T S3C #### [facility] [address] [place] [address] Vital Signs Date Time Vital Sign Value Performing Clinician Facility 10-03-2024 08:14-0400 Body height 167.64 cm Emma Aguilar MD Work Phone: [facility] 10-03-2024 08:14-0400 Body mass index (BMI) [Ratio] 31.9 kg/m2 Emma Aguilar MD Work Phone: [facility] 10-03-2024 08:14-0400 Body weight 89.81 kg Emma Aguilar MD Work Phone: [facility] 10-03-2024 08:14-0400 Diastolic blood pressure 111 mm[Hg] Emma Aguilar MD Work Phone: [facility] 10-03-2024 08:14-0400 Heart rate 80 /min Emma Aguilar MD Work Phone: [facility] 10-03-2024 08:14-0400 Systolic blood pressure 174 mm[Hg] Emma Aguilar MD Work Phone: [facility] 08-28-2024 10:33-0400 Body height 167.64 cm Emma Aguilar MD Work Phone: [facility] 08-28-2024 10:33-0400 Body mass index (BMI) [Ratio] 32.1 kg/m2 Emma Aguilar MD Work Phone: [facility] 08-28-2024 10:33-0400 Body weight 90.26 kg Emma Aguilar MD Work Phone: [facility] 08-28-2024 10:33-0400 Diastolic blood pressure 84 mm[Hg] Emma Aguilar MD Work Phone: [facility] 08-28-2024 10:33-0400 Heart rate 103 /min Emma Aguilar MD Work Phone: [facility] 08-28-2024 10:33-0400 Systolic blood pressure 119 mm[Hg] Emma Aguilar MD Work Phone: [facility] 04-07-2024 11:33-0500 Body height 167.64 cm [facility] 04-07-2024 11:33-0500 Body mass index (BMI) [Ratio] 32.5 kg/m2 [facility] 04-07-2024 11:33-0500 Body weight 91.39 kg [facility] 04-07-2024 11:33-0500 Diastolic blood pressure 95 mm[Hg] [facility] 04-07-2024 11:33-0500 Heart rate 97 /min [facility] 04-07-2024 11:33-0500 Systolic blood pressure 148 mm[Hg] [facility] 03-31-2024 15:00-0500 Body height 167.64 cm [facility] 03-31-2024 15:00-0500 Body mass index (BMI) [Ratio] 32.8 kg/m2 [facility] 03-31-2024 15:00-0500 Body weight 92.07 kg [facility] 03-31-2024 15:00-0500 Diastolic blood pressure 98 mm[Hg] [facility] 03-31-2024 15:00-0500 Heart rate 93 /min [facility] 03-31-2024 15:00-0500 Systolic blood pressure 156 mm[Hg] [facility] 11-15-2023 10:41-0400 Body height 167.64 cm [facility] 11-15-2023 10:41-0400 Body mass index (BMI) [Ratio] 32.9 kg/m2 [facility] 11-15-2023 10:41-0400 Body weight 92.53 kg [facility] 11-15-2023 10:41-0400 Diastolic blood pressure 86 mm[Hg] [facility] 11-15-2023 10:41-0400 Heart rate 109 /min [facility] 11-15-2023 10:41-0400 Systolic blood pressure 142 mm[Hg] [facility] 07-26-2023 09:26-0400 Body height 167.64 cm [facility] 07-26-2023 09:26-0400 Body mass index (BMI) [Ratio] 31.9 kg/m2 [facility] 07-26-2023 09:26-0400 Body weight 89.81 kg [facility] 07-26-2023 09:26-0400 Diastolic blood pressure 86 mm[Hg] [facility] 07-26-2023 09:26-0400 Heart rate 93 /min [facility] 07-26-2023 09:26-0400 Systolic blood pressure 130 mm[Hg] [facility] 07-10-2023 11:02-0400 Body height 15.24 cm [facility] 07-10-2023 11:02-0400 Body mass index (BMI) [Ratio] 3905.5 kg/m2 [facility] 07-10-2023 11:02-0400 Body weight 90.71 kg [facility] 07-10-2023 11:02-0400 Diastolic blood pressure 102 mm[Hg] [facility] 07-10-2023 11:02-0400 Heart rate 96 /min [facility] 07-10-2023 11:02-0400 Systolic blood pressure 161 mm[Hg] [facility] 04-26-2023 09:30-0500 Body height 167.64 cm Emma Aguilar Other [facility] [employer] Other 04-26-2023 09:30-0500 Body mass index (BMI) [Ratio] 31.92 kg/m2 Emma Aguilar Other [facility] [employer] Other 04-26-2023 09:30-0500 Body weight 89.72 kg Emma Aguilar Other [facility] Other 04-26-2023 09:30-0500 Diastolic blood pressure 83 mm[Hg] Emma Aguilar Other [facility] Other 04-26-2023 09:30-0500 Systolic blood pressure 119 mm[Hg] Emma Aguilar Other [facility] Other 02-12-2023 15:15-0500 Body height 167.64 cm Emma Aguilar Other [facility] Other 02-12-2023 15:15-0500 Body mass index (BMI) [Ratio] 31.57 kg/m2 Emma Aguilar Other [facility] Other 02-12-2023 15:15-0500 Body weight 88.72 kg Emma Aguilar Other [facility] Other 02-12-2023 15:15-0500 Diastolic blood pressure 97 mm[Hg] Emma Aguilar Other [facility] Other 02-12-2023 15:15-0500 Systolic blood pressure 149 mm[Hg] Emma Aguilar Other [facility] Other 10-26-2022 09:45-0400 Body height 167.64 cm Emma Aguilar Other [facility] Other 10-26-2022 09:45-0400 Body mass index (BMI) [Ratio] 31.34 kg/m2 Emma Aguilar Other [facility] Other 10-26-2022 09:45-0400 Body weight 88.09 kg Emma Aguilar Other [facility] Other 10-26-2022 09:45-0400 Diastolic blood pressure 96 mm[Hg] Emma Aguilar Other [facility] Other 10-26-2022 09:45-0400 Respiratory rate 18 /min Emma Aguilar Other [facility] Other 10-26-2022 09:45-0400 SaO2% (BldA) [Mass fraction] 90 % Emma Aguilar Other [facility] Other 10-26-2022 09:45-0400 Systolic blood pressure 145 mm[Hg] Emma Aguilar Other [facility] Other 01-28-2021 11:15-0500 Body height 165.1 cm Andrew Smith Other [facility] Other 01-28-2021 11:15-0500 Body mass index (BMI) [Ratio] 33.11 kg/m2 Andrew Smith Other [facility] Other 01-28-2021 11:15-0500 Body weight 90.27 kg Andrew Smith Other [facility] Other 01-28-2021 11:15-0500 Diastolic blood pressure 80 mm[Hg] Andrew Smith Other [facility] Other 01-28-2021 11:15-0500 Systolic blood pressure 140 mm[Hg] Andrew Smith Other [facility] Other 12-29-2020 15:30-0400 Body height 165.1 cm Andrew Smith Other [facility] Other 12-29-2020 15:30-0400 Body mass index (BMI) [Ratio] 33.48 kg/m2 Andrew Smith Other [facility] Other 12-29-2020 15:30-0400 Body weight 91.26 kg Andrew Smith Other [facility] Other 12-29-2020 15:30-0400 Diastolic blood pressure 76 mm[Hg] Andrew Smith Other [facility] Other 12-29-2020 15:30-0400 SaO2% (BldA) [Mass fraction] 99 % Andrew Luis Other [facility] Other 12-29-2020 15:30-0400 Systolic blood pressure 124 mm[Hg] Andrew Smith Other [facility] Other 12-08-2020 15:30-0400 Body height 165.1 cm Andrew Smith Other [facility] Other 12-08-2020 15:30-0400 Body mass index (BMI) [Ratio] 33.11 kg/m2 Andrew Smith Other [facility] Other 12-08-2020 15:30-0400 Body weight 90.27 kg Andrew Smith Other [facility] Other 12-08-2020 15:30-0400 Diastolic blood pressure 70 mm[Hg] Andrew Smith Other [facility] Other 12-08-2020 15:30-0400 SaO2% (BldA) [Mass fraction] 99 % Andrew Smith Other [facility] Other 12-08-2020 15:30-0400 Systolic blood pressure 130 mm[Hg] Andrew Smith Other [facility] Other 04-01-2020 16:45-0500 Body Temperature 97.81 [degF] [facility] [place] [place] 04-01-2020 16:45-0500 BP Diastolic 89 mm[Hg] [facility] [place] [facility] [place] 04-01-2020 16:45-0500 BP Systolic 174 mm[Hg] [facility] [place] [facility] [place] 04-01-2020 16:45-0500 Pulse (Heart Rate) 101 /min [facility] [place] 04-01-2020 16:45-0500 Pulse Oximetry 100 % [facility] [place] , [place] 04-01-2020 16:45-0500 Respiratory Rate 18 /min [facility] [place] 04-01-2020 09:29-0500 BMI (Body Mass Index) 33.3 kg/m2 [facility] [place] 04-01-2020 09:29-0500 Body weight 88 kg [facility] , [place] 04-01-2020 09:29-0500 Height 162.6 cm [facility] [place] 03-26-2020 11:11-0500 BMI (Body Mass Index) 33.37 kg/m2 [address], [place] 03-26-2020 11:11-0500 Body Temperature 98.2 [degF] [address] 03-26-2020 11:11-0500 Body weight 88.[address] , [place] 03-26-2020 11:11-0500 BP Diastolic 89 mm[Hg] [address] , [place] 03-26-2020 11:11-0500 BP Systolic 178 mm[Hg] [address] , [place] 03-26-2020 11:11-0500 Height 162.[address] , [place] 03-26-2020 11:11-0500 Pulse (Heart Rate) 111 /min [address], [place] 03-26-2020 11:11-0500 Pulse Oximetry 99 % [address] 03-26-2020 11:11-0500 Respiratory Rate 16 /min [address] Encounters Encounter Date Encounter Type Care Provider Facility Start: 10-03-2024 End: 10-03-2024 ambulatory Emma Aguilar MD Work Phone: [facility] Work Phone: Start: 10-03-2024 End: 10-03-2024 Patient encounter procedure Emma Aguilar MD -[facility] Work Phone: Start: 08-28-2024 Patient encounter status Rose Aguilar MD Work Phone: [facility] Start: 08-28-2024 End: 08-28-2024 Patient encounter procedure Emma Aguilar MD [facility] Work Phone: Start: 08-28-2024 End: 08-28-2024 Patient encounter status Emma Aguilar MD [facility] Start: 04-07-2024 End: 04-07-2024 ambulatory [facility] Work Phone: Start: 04-07-2024 End: 04-07-2024 Patient encounter procedure [facility] Work Phone: Start: 03-31-2024 End: 03-31-2024 ambulatory [facility] Work Phone: Start: 03-31-2024 End: 03-31-2024 Patient encounter procedure [facility] Work Phone: Start: 11-15-2023 Encounter for gynecological examination (general) (routine) without abnormal findings Emma Desai [facility] Start: 11-15-2023 End: 11-15-2023 ambulatory Emma Aguilar [facility] Work Phone: Start: 11-15-2023 End: 11-15-2023 Patient encounter procedure [facility] Work Phone: Start: 07-26-2023 End: 07-26-2023 ambulatory [facility] Work Phone: Start: 07-26-2023 End: 07-26-2023 Patient encounter procedure [facility] Work Phone: Start: 07-10-2023 End: 07-10-2023 ambulatory [facility] Work Phone: Start: 07-10-2023 End: 07-10-2023 Patient encounter procedure [facility] Work Phone: Start: 05-21-2023 Non-patient / Non-visit [facility] Work Phone: Start: 05-18-2023 Non-patient / Non-visit [facility] Work Phone: Start: 04-26-2023 End: 04-26-2023 ambulatory Emma Aguilar Other [facility] Other Start: 04-26-2023 Office outpatient vi sit 15 minutes Emma Aguilar [facility] Start: 02-12-2023 End: 02-12-2023 ambulatory Emma Aguilar Other [facility] Other Start: 02-12-2023 Office outpatient vi sit 15 minutes Emma Aguilar [facility] Start: 10-26-2022 End: 10-26-2022 ambulatory Emma Aguilar Other [facility] Other Start: 10-26-2022 Office outpatient vi sit 15 minutes Emma Aguilar [facility] Start: 04-04-2022 End: 04-04-2022 ambulatory MD Emma Aguilar Work Phone: [facility] Work Phone: Start: 04-04-2022 End: 04-04-2022 Patient encounter procedure MD Emma Aguilar Work Phone: [facility] [address] Work Phone: Start: 03-07-2022 End: 03-08-[address] EMMA AGUILAR Facility:[facility] Start: 03-06-2022 Adult health examination Rose Aguilar Other [facility] Other Start: 2021 End: 09-15-[address] WHITLEY MILAN Facility:[facility] Start: 09-09-2021 End: 09-10-[address] EMMA AGUILAR Facility:[facility] Start: 01-28-2021 End: 01-28-2021 ambulatory Andrew Smith Other [facility] Other Start: 01-28-2021 Office outpatient vi sit 25 minutes Andrew Smith [facility] Start: 01-13-2021 Telephone encounter Andrew Smith [facility] Start: 12-29-2020 Office outpatient vi sit 15 minutes Andrew Smith [facility] Start: 12-23-2020 Telephone encounter Andrew Smith [facility] Start: 12-22-2020 (Procedure) Short Andrewberkley Smith [facility] Start: 12-08-2020 Office outpatient vi sit 25 minutes Andrew Smith [facility] Start: 04-01-2020 End: 04-01-2020 Patient encounter procedure [facility] Start: 04-01-2020 End: 04-01-2020 Subsequent hospital visit by physician Usman Agustin Work Phone: [facility] Comment on above: Postoperative pain ( Primary Dx) Start: 04-01-2020 End: 04-04-2020 Patient encounter procedure [facility] Start: 04-01-2020 End: 04-03-2020 Subsequent hospital visit by physician Usman Agustin Work Phone: [facility] Comment on above: Pain Start: 03-26-2020 End: 03-31-2020 Patient encounter procedure [facility] Start: 03-26-2020 End: 03-30-2020 Subsequent hospital visit by physician Marcelle Rodriguez [address] Pre-Admission Testing Comment on above: Cervical disc hernia tion; Radiculopathy of cervical spine Procedures Date Procedure Procedure Detail Performing Clinician Start: 04-01-2020 Fluoroscopy during operation Usman Agustin Work Phone: Start: 04-01-2020 Urine test visual color cmprsn meths Crystal Leos Start: 03-26-2020 Antibody screen [facility] 1 Start: 03-26-2020 Basic metabolic pane l calcium total Crystal Leos Start: 03-26-2020 Blood count complete automated Crystal Leos Start: 03-26-2020 Prothrombin time Manuel Leos Start: 03-26-2020 Blood typing serologic abo Crystal Leos Start: 03-26-2020 Ecg routine ecg w/le ast 12 lds w/i&r Crystal Leos Screening for malign ant neoplasm of breast Emma Lauren Other Plan of Treatment Date Care Activity Detail Author Start: 07-26-2023 Patient referral [facility] Work Phone: Start: 04-04-2022 [facility] Start: 04-14-2020 End: 04-14-2020 Office Visit 04/14/2020 Office Visit Neurosurgery Usman Agustin MD [address] [facility] [address] [place] [address] [facility] Start: 04-01-2020 End: 04-01-2020 Hospital Encounter [facility] Comment on above: A.C.D.F. ( ANTERIOR CERVICAL DISKECTOMY FUSION) C5-6 1 HR/ I C-ARM, NUVASIVE/ S.S.E.P. TO BE LATEX FREE JULIÁN Start: 11-18-2019 Influenza vaccination Flu vaccine (# 1) [place], [place] Start: 09-13-2013 Screening for malign ant neoplasm of breast Breast cancer screen [place], [place] Start: 09-13-2013 Screening for malign ant neoplasm of colon Colon cancer screen colonoscopy [place], [place] Start: 09-13-2013 Shingles Vaccine (1 of 2) Shingles Vaccine (1 of 2) [place], [place] Start: 2003 Diabetes screen Diabetes screen [place], [place] Start: 2003 Lipid panel Lipid screen [place], [place] Start: 09-13-1984 Screening for malign ant neoplasm of cervix Cervical cancer screen [place], [place] Start: 09-13-1982 DTaP/Tdap/Td vaccine (1 - Tdap) DTaP/Tdap/Td vaccine (1 - Tdap) [place], [place] Start: 09-13-1978 HIV screening HIV screen [place], [place] Start: 1963 Hepatitis C screening Hepatitis C sc reen [place], [place] End: 03-26-2020 COVID-19 COVID-19 Lab Routine One Time for 1 Occurrences starting 03/26/2020 until 03/26/2020 [facility] [place] Comment on above: One Time for 1 Occur rences starting 03/26/2020 until 03/26/2020 CT [facility] End: 04-01-2020 Intermittent pulse oximetry Pulse Oximetry Spot Check Respiratory Care Routine One Time for 1 Occurrences starting 04/01/2020 until 04/01/2020 [facility] [place] Comment on above: One Time for 1 Occur rences starting 04/01/2020 until 04/01/2020 MG Breast - bilatera l Screening [facility] Nuclear Ab [Titer] i n Serum [facility] Oxygen therapy [Mini mum Data Set] Initiate Oxygen Therapy Protocol Respiratory Care Routine Daily until discontinued starting 04/01/2020 [place], [place] Comment on above: Daily until disconti nued starting 04/01/2020 Patient referral [facility] Work Phone: Phase I & II - meter ed glucose Phase I & II - metered glucose Point of Care Testing Routine As Needed until discontinued starting 04/01/2020 [facility] [place] Comment on above: As Needed until disc ontinued starting 04/01/2020 Surgical Pathology [facility] Lab Routine Release Upon Ordering for 1 Occurrences starting 04/01/2020 [facility] [place] Comment on above: Release Upon Orderin g for 1 Occurrences starting 04/01/2020 [facility] Immunizations Immunization Date Immunization Notes Care Provider Fa noble 09-28-2021 COVID-19 Vaccine Pfi zer - Documentation Purposes Only Emma Aguilar Other [facility] 11-11-2020 influenza virus vaccine, split virus (incl. purified surface antigen) Emma Aguilar Other [facility] Other 11-11-2020 influenza virus vaccine, unspecified formulation [facility] 06-30-2020 COVID-19 mRNA-1273 (Moderna) MD Emma Aguilar Work Phone: [facility] 06-02-2020 COVID-19 mRNA-1273 (Moderna) MD Emma Aguilar Work Phone: [facility] 12-15-2019 zoster vaccine, live Emma Aguilar Other [facility] 12-02-2019 influenza virus vaccine, split virus (incl. purified surface antigen) Emma Aguilar Other [facility] Other 12-02-2019 influenza virus vaccine, unspecified formulation [facility] 01-26-2018 influenza virus vaccine, split virus (incl. purified surface antigen) Emma Aguilar Other [facility] Other 01-26-2018 influenza virus vaccine, unspecified formulation [facility] Payers Date Payer Category Payer Unknown [id number] [id number] 1965 Unknown [id number] [id number] 1965 Unknown [id number] [id number] 1965 Unknown [id number] 1965 Unknown [id number] [id number] [id number] 1961 Self-pay 1961 Unknown [id number]. [id number] Unknown [id number] Unknown [id number] Social History Date Type Detail Facility Start: 03-26-2020 End: 01-12-2021 Tobacco smoking status NHIS Former smoker [facility] End: 03-26-2000 History of tobacco use Current smoker [place], [place] End: 03-26-2000 History of tobacco use [facility] Start: 03-26-2020 End: 04-02-2020 Cigarettes smoked current (pack per day) - Reported [facility] Start: 03-26-2020 End: 04-02-2020 Tobacco use and exposure Never used [facility] Start: 03-26-2020 End: 04-02-2020 Alcohol intake Current [facility] (finding[facility] Start: 03-26-2020 Alcohol Comment rare social Gloria Valderrama [place], [place] Sex Assigned At Not on file [place], [place] Exposure to SARS-CoV -2 (event) Not sure [facility] Sex Assigned At [facility] [employer] Other Start: 1965 Sex Assigned At Female F [facility] Start: 02-12-2023 End: 10-03-2024 Tobacco smoking status NHIS Never smoked tobacco (finding) [facility] Start: 03-31-2024 End: 04-07-2024 Sex Female (finding) [facility] Medical Equipment Procedure Code Equipment Code Equipment Origin al Text Equipment Identifier Dates Cage Spnl [id number] xl14mm Lum Lord Intbdy Fus [facility] - [id number] Start: 04-01-2020 Plate Spnl 1 Lev el 22 Mm Antr Cerv Lck Translational [id number] Start: 04-01-2020 Screw Spnl L13mm Dia4mm Ant Cerv [facility]pr [place] [facility] [id number] Start: 04-01-2020 Clinical Notes 03-19-2020 to 08-28-2024 Note Date & Type Note Facility 08-28-2024 Evaluation note Diagnosis Onset Date Resolution Fibromyalgia acute August 28, 025 10:32am Osteoarthritis acute August 28, 2024 10:32am Screening mammogram for breast cancer acute August 28, 2024 10:32am Wellness examination acute August 28, 2024 10:32am [facility] Work Phone: 1(455) 865-136101-13-2025 Evaluation note* Diagnosis Onset Date Resolution Status Admit Date Visual problems acute March 192024 2:52pm [facility] Work Phone: 1(822) 944-711702-08-2024 Evaluation note* Encounter Date Diagnosis Assessment Notes Treatment Notes Treatment Clinical Notes Apr, Fibromyalgia (ICD-10 - M79.7) Already on highest dose of meloxicam. Appears that max dose of Cymbalta is 120 mg daily. Will increase it modestly to 90 mg total daily. Hesitate to add more medications which could cause drowsiness, like Lyrica. Call in 30 days if not effective. [facility] Other 11-27-2023 Evaluation note* Encounter Date Diagnosis Assessment Notes Treatment Notes Treatment Clinical Notes Jan, Acute bacterial conjunctivitis of left eye (ICD-10 - H10.32) [place] eye is contagious. Wash hands frequently and try not to rub eyes. Use warm wash cloth to keep them clean or to remove discharge from eyes. Use drops until eyes are clear then 3 more days [facility] Other 08-10-2023 Evaluation note* Encounter Date Diagnosis [...] - E07.9) Chronic problem. Continue present med. [facility] Other 11-12-2021 Evaluation note* Encounter Date Diagnosis [...] (ICD-10 - G89.29) Continue medications as prescribed [facility] Other 10-13-2021 Evaluation note* Encounter Date Diagnosis [...] (ICD-10 - G89.29) Conitnue medications as prescribed [facility] Other 09-22-2021 Evaluation note* Encounter Date Diagnosis [...] (ICD-10 - G89.29) Continue medications as prescribed [facility] [employer] Other 01-01-2021 History general Narrative - Reported* Type Description Date Surgical History CYST REMOVAL FROM OVARY Surgical History septoplasty 2019 Surgical History disc replacement in neck 03/2020 Hospitalization History see above [facility] [employer] Other Evaluation noteNo assessment information available [facility] Work Phone: Evaluation note* Diagnosis Onset Date Resolution Status Acute sinusitis, unspecified acute Mass of right side of neck a cute Right foot pain acute [facility] Work Phone: Evaluation note* Diagnosis Onset Date Resolution Status Constipation acute Fatigue acute Well woman exam acute [facility] Work Phone: Evaluation note* Diagnosis Onset Date Resolution Status Admit Date Visual problems acute March 192024 2:52pm [facility] Work Phone: History general Narrative - Reported* Type Description Date Medical History Chronic cervical radiculopathy Medical History Fibromyalgia Medical History 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 Surgical History CYST REMOVAL FROM OVARY Surgical History septoplasty 2019 Surgical History disc replacement in neck 03/2020 Hospitalization History see above [facility] [employer] Other Hospital Discharge instructionsAmbulatory Orders* Referral to Podiatry Time Frame: 07/26/23, Location: None Selected [facility] Work Phone: Reason for referral (narrative)No reason for referral information [facility] Work Phone: History of Present Illness * [...] Documents on File Type Date Recorded Patient Vacation Guide Expl anation ACP-Advance Directive ACP-Power of Conservation Educator Documents on File Type Date Recorded Patient Vacation Guide Expl anation ACP-Advance Directive ACP-Power of Conservation Educator Advance Directive Response Recorded Date/ Time Advance [...] Fluoro For Surgical Procedures Usman Agustin MD [email or web address], [address] [place] [address] Discharge Instructions * Instructions* Usman Agustin MD [...] your physician 11) Call your doctor at [phone] for an appointment (or follow up as [...] call OFFICE. The 24- hour phone is [phone] 13) If you are unable to contact [...] eye pain March 31, 2024 2 :52pm Chief Complaint Admit Date wellness August 28, 2024 10:3 2am Nausea, Vertigo October 03, 2024 8:10 am Reason for Visit Admit Date Fibromyalgia August 28, 2024 10:3 2am Osteoarthritis August 28, 2024 10:3 2am Screening mammogram for breast cancer [facility] 2024 10:32am Wellness examination August 28, 2024 10: 32am Additional Source Comments INFORMATION SOURCE (unrecogn ized section and content) DATE CREATED AUTHOR 03/31/2020 [facility] [place] DATE CREATED AUTHOR AUTHOR'S ZANDRA LANDIN 04/07/2020 [facility] DATE CREATED AUTHOR AUTHOR'S ORGANIZ ATION 03/15/2022 [facility] DATE CREATED AUTHOR AUTHOR'S ORGANIZ ATION 11/23/2023 [facility] Reason for Visit (unrecogniz ed section and content) Status Reason Specialty Diagnoses / Procedures Re ferred By Contact Referred To Contact Diagnoses Herniation of cervical intervertebral disc with radiculopathy DISC HERNIATION RADICULOPATHY DEGENERATIVE DISC DISEASE Procedures [place] DISK SURG,ANTER,CERVICAL,SINGL E LVL A.C.D.F. ( ANTERIOR CERVICAL DISKECTOMY FUSION) C5-6 1 HR/ I C-ARM, NUVASIVE/ S.S.E.PUsman Morgan MD [address], [address] [place] [address] [facility] Ordered Prescriptions (unrec ognized section and [...] Ann Burris Attending Provider Active Start: [facility] [place] 2023 Team Status: Active Member Role Status [...] 2023 Team Status: Inactive Member Role Status Linda Aguilar MD Primary Care Provide r, Attending Provider Active Start: March 31, 2024 End: March 31, 2024 Team Status: Inactive Member Role Status Linda Aguilar MD Primary Care Provide r, Attending Provider Active Start: April 07, 2024 End: April 07, 2024 Team Status: Inactive Member Role Status Linda Aguilar MD Primary Care Provider Active Start: August 28, 2024 End: August 28, 2024 Emma Aguilar MD Attending Provider Active St art: August 28, 2024 End: August 28, 2024 Team Status: Inactive Member Role Status Linda Aguilar MD Primary Care Provider Active Start: October 03, 2024 End: October 03, 2024 Emma Aguilar MD Attending Provider Active St art: October 03, 2024 End: October 03, 2024 Goals (unrecognized section and content) Goals [...] BE BASED ON THE PRIMARY CLINICAL RECORDS. [facility] [employer] provides no warranty or guarantee of the accuracy or completeness of information in this document.
[2024-10-10 09:11] LABS: Hematocrit 44.4 % (36.0-48.0); Hemoglobin 14.7 g/dL (12.0-16.0); Immature Granulocytes Abs Auto 0.02 10^3/uL (0.00-0.03); Immature Granulocytes Pct Auto 0.3 % (0.0-0.5); Lymphocytes Absolute Auto 1.1 10^3/uL (1.2-3.8); Mean Corpuscular HGB Conc 33.1 g/dL (29.9-35.2); Mean Corpuscular Hemoglobin 29.1 pg (26.7-34.0); Mean Corpuscular Volume 87.7 fL (81.0-99.0); Platelet Count 287 10^3/uL (150-450); Red Blood Count 5.06 10^6/uL (4.20-5.40); White Blood Count 7.5 10^3/uL (4.0-11.0)
[2024-10-10] MEDS: DIAZEPAM 10 MG/2 ML SYRINGE 2.5 MG IV (09:18)
[2024-10-10 09:22] LABS: Anion Gap 14.4; Blood Urea Nitrogen 10.0 mg/dL (7.0-18.0); Calcium 9.9 mg/dL (8.5-10.1); Carbon Dioxide 28.6 mmol/L (21.0-32.0); Chloride 101 mmol/L (98-107); Estimated GFR (African America >60 (>=60 mL/min/1.73m^2); Estimated GFR (Non-African Ame >60 (>=60 mL/min/1.73m^2); Glucose 130 mg/dL (74-106); Potassium 4.0 mmol/L (3.5-5.1); Sodium 140 mmol/L (136-145)
== END 2024-10-10 11:00 | disposition home or self-care (01) ==
PROVIDERS: Emergency Provider Emergency Medicine; PCP Family Medicine
DX: R42 Dizziness and giddiness (principal)
CPT/HCPCS: 36415; 70450; 80048; 85025; 93005; 96374; 96375; 99285; J2405; J3360

== ENCOUNTER 2024-12-18 13:20 | Emergency (ER) | payer BC, SELFPAY ==
[2024-12-18] VITALS (9 sets, daily range): BP systolic 124–188; BP diastolic 80–124; PULSE 74–106; TEMP 36.7; O2SAT 97–99; BMI 32.1
--- NOTE | 2024-12-18 13:37 | ECG_ITS ---
[facility] Test Date: 2024-12-18 Pat Name: AQUILES CRUM Department: Room: - Gender: Female Diamond Expert: : [id number] Requested By: Isra Reynoso Order Number: [id number] Miguel MD: ISA KITCHEN M.D. Measurements Intervals [place] Rate: 96 P: 43 W[place]: 140 QRS: 17 QRSD: 82 T: 61 QT: 366 QTc: 420 Interpretive Statements 1100 Sinus rhythm 9110 normal ECG Compared to ECG 10/10/2024 08:45:55 No significant changes Electronically Signed On 12-18-2024 15:35:33 EDT by ISA KITCHEN M.D.
--- NOTE | 2024-12-18 13:38 | ED.GENADUL1 ---
HPI HPI - General Adult General Chief complaint: Headache Stated complaint: HEADACHE Time Seen by Provider: 12/18/24 13:30 Source: patient Mode of arrival: walk-in Limitations: no limitations History of Present Illness HPI narrative: cc -headache, high blood pressure Patient presents with left-sided headache which she says is typical of her prior migraines. She is not having any associated visual change but did experience dizziness and nausea. She felt as if her headache has decreased in intensity -it was not an explosive headache but rather a gradual onset headache and not the worst of her life -but she is still having dizziness and nausea. Of note, her blood pressure is markedly elevated in the ED today. She had previously been found to have high blood pressure on emergency department visit associated with headache and was started on an antihypertensive medication by her primary care physician, which she took for about a month and then stopped taking when the prescription ran out. She said that 2 or 3 months after that she saw her primary care physician and got her blood pressure rechecked and it was normal . She denies any numbness, tingling, chest pain or shortness of breath. She denies any abdominal pain, flank pain or back pain. She denies any neck pain. No recent fever or illness. No recent fall or injury to the head or neck. Related Data Home Medications ?Medication ?Instructions ?Recorded ?Confirmed duloxetine 60 mg capsule,delayed 60 mg PO DAILY 10/10/24 12/18/24 release meloxicam 15 mg tablet 15 mg PO DAILY 10/10/24 12/18/24 Allergies Allergy/AdvReac Type Severity Reaction Status Date / Time acetaminophen (From Vicodin) AdvReac Nausea Verified 12/18/24 13:30 hydrocodone (From Vicodin) AdvReac Nausea Verified 12/18/24 13:30 Opioid HPI Opioid Management Most Recent Opioid Data: Last Pain Scale 3 Today, 13:25 PFSH PFSH Social History Little interest or pleasure in doing things: not at all Feeling down, depressed, or hopeless: not at all Exam Narrative Exam Narrative: Nurses notes and vital signs reviewed and patient is not hypoxic. afebrile General: Well-appearing and in no apparent distress. Skin: Warm, dry, no pallor noted. Head: Normocephalic, atraumatic. Neck: Supple, non-tender. No meningismus. Eye: Pupils are equal, round and EOMI. No scleral icterus. Ears, Nose, Mouth, and Throat: TM are clear, no posterior oropharynx erythema or nasal mucosal hypertrophy, uvula is mid-line Oral mucosa is moist Cardiovascular: Borderline tachycardia = just under 100bpm on my exam. Respiratory: No accessory muscle use or respiratory distress. Lungs are clear to auscultation, no wheezing, rales or rhonchi Musculoskeletal: normal ROM GI: Abdomen is soft, non-distended. Normal bowel sounds. No pulsatile masses appreciated. No tenderness to palpation. No rebound, guarding, or rigidity noted. Neurological: A&O x4. No cranial nerve dysfunction observed. No truncal ataxia. Moves all extremities. Sensation intact. Psychiatric: Cooperative and interactive. Normal mood and affect. Constitutional Vital Signs, click to edit/add: Last Vital Signs Temp 98.1 F 12/18/24 13:25 Pulse 81 12/18/24 14:20 Resp 14 12/18/24 14:20 BP 124/93 H 12/18/24 14:15 Pulse Ox 99 12/18/24 14:20 O2 Del Method Room Air 12/18/24 13:25 Course Vital Signs Vital signs: Vital Signs Temperature 98.1 F 12/18/24 13:25 Pulse Rate 106 H 12/18/24 13:25 Respiratory Rate 16 12/18/24 13:25 Blood Pressure 188/124 H 12/18/24 13:25 Pulse Oximetry 98 12/18/24 13:25 Oxygen Delivery Method Room Air 12/18/24 13:25 Temperature 98.1 F 12/18/24 13:25 Pulse Rate 81 12/18/24 14:20 Respiratory Rate 14 12/18/24 14:20 Blood Pressure 124/93 H 12/18/24 14:15 Pulse Oximetry 99 12/18/24 14:20 Oxygen Delivery Method Room Air 12/18/24 13:25 Medical Decision Making MDM Narrative Medical decision making narrative: Patient's blood pressure is markedly elevated and she presents with headache, nausea and dizziness. Patient was placed on horticultural agent and EKG obtained. Blood drawn and sent for evaluation. She was ordered to receive 20 mg labetalol IV for her high blood pressure. She also received IV Zofran, IV Toradol for her migraine -like symptoms. CBC and BMP were unremarkable. EKG was normal. Blood pressure improved to 140/91 after ED treatment. On recheck at 1435, the patient reports absence of symptoms - no headache, dizziness or nausea. Patient discharged home with instructions to see Dr Arriola in a few days for BP recheck - but to return to the ED if she develops any worrisome symptoms, including return of the headache, nausea and dizziness. Medical Records Medical records reviewed: Yes I reviewed the patient's medical records Lab Data Lab results reviewed: Yes I reviewed the patient's lab results Labs: Lab Results 12/18/24 Range/Units 13:52 WBC 8.0 (4.0-11.0) 10^3/uL RBC 5.16 (4.20-5.40) 10^6/uL Hgb 15.1 (12.0-16.0) g/dL Hct 44.2 (36.0-48.0) % MCV 85.7 (81.0-99.0) fL MCH 29.3 (26.7-34.0) pg MCHC 34.2 (29.9-35.2) g/dL RDW 13.2 (11.0-15.0) % Plt Count 309 (150-450) 10^3/uL MPV 9.3 L (9.5-13.5) fL Neut % (Auto) 71.5 (43.0-75.0) % Lymph % (Auto) 19.7 L (20.5-60.0) % [place] % (Auto) 7.8 (1.7-12.0) % Eos % (Auto) 0.5 L (0.9-7.0) % Baso % (Auto) 0.4 (0.2-2.0) % Neut # (Auto) 5.7 (1.4-6.5) 10^3/uL Lymph # (Auto) 1.6 (1.2-3.8) 10^3/uL [place] # (Auto) 0.6 (0.3-0.8) 10^3/uL Eos # (Auto) 0.0 (0.0-0.7) 10^3/uL Baso # (Auto) 0.0 (0.0-0.1) 10^3/uL Abs Immat Gran (auto) 0.01 (0.00-0.03) 10^3/uL Imm/Tot Granulo (auto) 0.1 (0.0-0.5) % Sodium 140 (136-145) mmol/L Potassium 4.2 (3.5-5.1) mmol/L Chloride 100 (98-107) mmol/L Carbon Dioxide 27.3 (21.0-32.0) mmol/L Anion Gap 16.9 BUN 17.0 (7.0-18.0) mg/dL Creatinine 0.67 (0.55-1.02) mg/dL Est GFR ( Amer) >60 (>=60 mL/min/1.73m^2) Est GFR (Non-Af Amer) >60 (>=60 mL/min/1.73m^2) BUN/Creatinine Ratio 25.4 Glucose 109 H (74-106) mg/dL Calcium 9.8 (8.5-10.1) mg/dL ECG Data Attestation: I personally reviewed and interpreted this ECG as follows: Interpretation: EKG interpretation:Emergency Department physician interpretation. Normal sinus rhythm at 96bpm.Normal axis, normal intervals and no ST segment elevation or depression. Normal EKG. Discharge Plan Discharge Chief Complaint: Headache Clinical Impression: Essential hypertension, Migraine Patient Disposition: Home, Self-Care Time of Disposition Decision: 14:42 Prescriptions / Home Meds: No Action meloxicam 15 mg tablet 15 mg PO DAILY duloxetine 60 mg capsule,delayed release(DR/EC) 60 mg PO DAILY Print Language: Swedish Instructions: Acute Headache (ED), Hypertension (ED) Referrals: Emma Arriola MD [Primary Care Provider, Family Practice] - 1 week
[2024-12-18 14:01] LABS: Hematocrit 44.2 % (36.0-48.0); Hemoglobin 15.1 g/dL (12.0-16.0); Immature Granulocytes Abs Auto 0.01 10^3/uL (0.00-0.03); Immature Granulocytes Pct Auto 0.1 % (0.0-0.5); Lymphocytes Absolute Auto 1.6 10^3/uL (1.2-3.8); Mean Corpuscular HGB Conc 34.2 g/dL (29.9-35.2); Mean Corpuscular Hemoglobin 29.3 pg (26.7-34.0); Mean Corpuscular Volume 85.7 fL (81.0-99.0); Platelet Count 309 10^3/uL (150-450); Red Blood Count 5.16 10^6/uL (4.20-5.40); White Blood Count 8.0 10^3/uL (4.0-11.0)
[2024-12-18] MEDS: KETOROLAC TROMETHAMINE 30 MG/ML VIAL IVP (14:01)
[2024-12-18] MEDS: LABETALOL HCL 20 MG/4 ML SYRINGE IVP (14:01)
[2024-12-18 14:10] LABS: Anion Gap 16.9; Blood Urea Nitrogen 17.0 mg/dL (7.0-18.0); Calcium 9.8 mg/dL (8.5-10.1); Carbon Dioxide 27.3 mmol/L (21.0-32.0); Chloride 100 mmol/L (98-107); Estimated GFR (African America >60 (>=60 mL/min/1.73m^2); Estimated GFR (Non-African Ame >60 (>=60 mL/min/1.73m^2); Glucose 109 mg/dL (74-106); Potassium 4.2 mmol/L (3.5-5.1); Sodium 140 mmol/L (136-145)
--- OUTSIDE RECORDS SUMMARY | 2024-12-18 19:23 | XMS_ITS | CCD ---
Author Organization [facility] Care Team Providers Care Manager Nuclear Name Role Phone Emma Aguilar Primary Care Provider [phone] EMMA AGUILAR Primary Care Unavailable VAMSI, USMAN [...] LISTED Consulting Unavaila ble LAUREN, DR EMMA Garica Admitting Unavailable AGUILAR, DR EMMA Garcia Attending Unavailable LAUREN, DR EMMA Garcia Primary Care Unavailable ZIEBJINNY, DR MODE Barnes Consulting Unavailable LAUREN, DR EMMA Garcia Consulting Unavailable LAUREN, DR EMMA Garcia Admitting Unavailable AGUILAR, DR EMMA Garcia Attending Unavailable AGUILAR, DR EMMA Garcia Primary Care Unavailable ZIEBER, DR MODE Barens Consulting Unavailable AGUILAR, DR EMMA Garcia Consulting Unavailable MD Emma Aguilar Primary Care Provider [phone] MD Musa Steward Attending Provider Emma Aguilar Unavailable Emma Aguilar Attending Unavailable Emma Aguilar Primary Care Unavailable Emma Aguilar Admitting Unavailable Emma Aguilar MD Primary Care Provider Emma Aguilar MD Attending Provider Naldo Roca DO Attending Provider [phone] Vickie Lopze CMA Attending Provider Unavaila ble Allergies Allergy Classification Reported Allergen(s) Allergy Type Date of Onset Reaction(s) Facility (3 sources) Acetaminophen / HYDROcodone Drug Allergy 021 Nausea Only [facility], [place] (13 sources) Azithromycin Drug Allergy 013 Nausea Only [place], [place] Comment on above: Onset Date: 12/09/2012 (20 sources) Codeine Drug Allergy Nausea Only [place] (11 sources) oxyCODONE Drug Allergy Nausea [place] (3 sources) Sulfonamides (Antibiotic) Propensity to adverse reactions to drug Nausea Only [place] (9 sources) Acetaminophen / oxyCODONE Drug Allergy stomach upset [facility] [facility] Other (9 sources) Acetaminophen; Translations: [acetaminophen] Drug Allergy Gastrointestinal Upset, Gastrointestinal Upset, stomach upset [facility] Comment on above: Onset Date: 12/09/2012 (3 sources) Sulfamethoxazole / Trimethoprim Drug Allergy Unknown [facility] Other (3 sources) Vicodin *ANALGESICS - OPIOID* Propensity to adverse reactions Unknown [facility] Other (3 sources) Cosmetics Propensity to adverse reactions Unknown [facility] Other (8 sources) HYDROcodone; Translations: [hydrocodone] Drug Allergy 024 [facility] Comment on above: Onset Date: 12/09/2012 (8 sources) Sulfamethoxazole; Translations: [sulfamethoxazole] Drug Allergy 024 [facility] Comment on above: Onset Date: 12/09/2012 (8 sources) Trimethoprim; Translations: [trimethoprim] Drug Allergy 024 [facility] Comment on above: Onset Date: 12/09/2012 (8 sources) cosmetic; Translations: [cosmetic] Allergy to substance [facility] Comment on above: Onset Date: 12/09/2012 (1 source) Azithromycin Drug Allergy 024 [facility] Rep[facility] (1 source) Codeine Drug Allergy 024 [facility] (1 source) oxyCODONE Drug Allergy 024 [facility] Medications Current Medications Medication [...] pain 40 tablet 0 04/01/2020 04/15/2020 Active amoxicillin 875 mg / clavulanate 125 mg oral tablet (1 source) Penicillin-class Antibacterial Start: 10-14-2024 take 1 tablet by mouth twice daily Amoxicillin-Pot Clavulanate 875-125 mg tablet Active 1 TAB PO Twice daily October 14, 2024 12:00am Complies with drug therapy calcium chloride 0.0014 meq/ml / potassium chloride [...] 17, 2023 8:30am take 1 capsule by [facility] every twenty-four hours DULoxetine HCl 30 MG 1 capsule Orally Once a day for 30 days Total 90mg daily Active take 1 capsule by [facility] once daily DULoxetine HCl 60 MG [...] lidocaine PF 1 % injection 1 mL losartan potassium 25 mg oral tablet (1 source) Angiotensin 2 Receptor Mary Start: 10-14-2024 take 1 tablet by mouth once daily Losartan 25 mg tablet Active 25 MG PO Daily October 14, 2024 12:00am Complies with drug therapy meclizine hydrochloride 12.5 mg oral tablet (2 sources) Antiemetic Start: 10-03-2024 take 1 tablet by [...] bid for 5 day(s) Nov, Active sennosides, residential 8.6 mg oral tablet (2 sources) Start: 04-01-2020 End: 04-15-2020 take 2 tablets by mouth twice daily senna (SENOKOT) 8.6 MG tablet Take 2 tablets by mouth 2 times daily for 14 days 56 tablet 0 04/01/2020 04/15/2020 Active Completed/Discontinued Medications Medication Drug Class(es) Dates Sig (Normalized) Sig (Original) cefdinir 300 mg oral capsule (7 sources) Cephalosporin Antibacterial Start: 07-10-2023 End: 11-15-2023 take 1 capsule by mouth twice daily Cefdinir 300 mg capsule Discontinued 300 MG PO Twice daily July 10, 2023 12:00am November 15, 2023 10:46am cyclobenzaprine hydrochloride 5 mg oral tablet (12 sources) Muscle Relaxant Start: 01-12-2021 End: 07-10-2023 Cyclobenzaprine 5 mg tablet Discontinued 5 MG PO As Directed January 12, 2021 12:00am July 10, 2023 11:08am Cyclobenzaprine HCl Active Levonorgestrel-Ethinyl Estrad (17 sources) Progestin, Estrogen, Progestin-containing Intrauterine Device Start: [...] thrombin kit tiZANidine 4 mg oral tablet (3 sources) Central alpha-2 Adrenergic Agonist Start: 04-07-2024 End: 08-28-2024 take 1 tablet by mouth every eight hours as needed Tizanidine 4 mg tablet Discontinued 4 MG PO Every 8 hours as needed for muscle spasticity April 07, 2024 1:00am August 28, 2024 10:36am topical skin adhesive stick (1 source) Start: 04-01-2020 End: 04-01-2020 topical skin adhesive stick traMADol hydrochloride 50 mg oral tablet (14 sources) Opioid Agonist Start: 11-23-2020 End: 12-22-2020 [...] [Epigastric pain] Episodic Blindness and vision defects (6 sources) Disorder of vision; 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] 03-31-2024 Chronic Conditions associated with dizziness or vertigo (3 sources) Benign paroxysmal positional vertigo; Translations: [Benign paroxysmal vertigo, unspecified ear] 10-06-2024 Episodic Essential hypertension (2 sources) Benign essential hypertension; Translations: [Essential (primary) hypertension] 10-14-2024 Chronic Headache; including migraine (12 sources) Headache; Translations: [Headache] Onset: 05-19-2014 Episodic Immunizations and screening for infectious disease (3 sources) Vaccination given; Translations: [Encounter for immunization] Episodic Inflammation; infection of eye (except that caused by tuberculosis or sexually transmitteddisease) (1 source) Unspecified acute conjunctivitis, left eye Episodic Malaise and fatigue (9 sources) Fatigue; Translations: [Other fatigue] Onset: 05-07-2015 11-15-2023 Episodic Noninfectious gastroenteritis (2 sources) Gastroenteritis; Translations: [Noninfective gastroenteritis and colitis, unspecified] 10-06-2024 Episodic Osteoarthritis (4 sources) Osteoarthritis; Translations: [Unspecified osteoarthritis, unspecified site] 08-28-2024 Chronic Other circulatory disease (3 sources) Elevated blood-pressure reading without diagnosis of hypertension; Translations: [Elevated blood-pressure reading, without diagnosis of hypertension] Episodic Other connective tissue disease (9 sources) Fibromyalgia; Translations: [Fibromyalgia] 11-15-2023 Episodic Other connective tissue disease (2 sources) Fibromyalgia Episodic Other connective tissue disease (4 sources) Foot pain; Translations: [Pain in right foot] 07-26-2023 Episodic Other connective tissue disease (1 source) Pain in right foot; Translations: [Pain in limb] 07-26-2023 Episodic Other connective tissue disease (2 sources) Pain in right foot; Translations: [Pain in right foot] 07-26-2023 Episodic Other gastrointestinal disorders (5 sources) Constipation; Translations: [Constipation, unspecified] 11-15-2023 Episodic Other gastrointestinal disorders (1 source) Constipation, unspecified; Translations: [Constipation, unspecified] 11-15-2023 Episodic Other injuries and conditions due to external causes (2 sources) Other specified injuries of thorax, initial encounter; [...] conditions (not mental disorders or infectious disease) (8 sources) Encounter for screening mammogram for malignant neoplasm of breast; Translations: [Patient encounter status] Onset: 03-07-2022 Episodic Other skin disorders (6 sources) Mass of neck; Translations: [Localized swelling, mass and lump, neck] 07-26-2023 Episodic Other skin disorders (1 source) Localized swelling, mass and lump, neck; Translations: [Swelling, mass, or lump in head and neck] 07-26-2023 Episodic Other upper respiratory infections (3 sources) Chronic sinusitis; Translations: [Chronic sinusitis, unspecified] Chronic Other upper respiratory infections (17 sources) Acute sinusitis; Translations: [Acute sinusitis, unspecified] [...] Test Name Value Interpretation Reference Range Facility Basophils Auto (Bld) [#/Vol] Ordered By: Naldo Roca on 10-10-2024 Basophils (Bld) [#/Vol] 0.0 10 3/uL 0.0-0.1 [facility] Basophils/100 WBC Auto (Bld) Ordered By: Naldo Roca on 10-10-2024 Basophils/100 WBC (Bld) 0.4 % 0.2-2.0 [facility] Eosinophils/100 WBC Auto (Bl d)Ordered By: Naldo Roca on 10-10-2024 Eosinophils/100 WBC (Bld) 0.4 % Low 0.9-7.0 [facility] Erythrocyte distribution wid th Auto (RBC) [Ratio]Ordered By: Naldo Roca on 10-10-2024 Erythrocyte distribution width (RBC) [Ratio] 13.2 % 11.0-15.0 [facility] Estimated glomerular filtrat ion rate (GFR) non- AmericanOrdered By: Emma Aguilar on 10-10-2024 GFR/1.73 sq M.predicted among non-blacks MDRD (S/P/Bld) [Vol rate/Area] mL/min/{1.73_m2} >=60 mL/min/1.73m 2 [facility] Hematocrit Auto (Bld) [Volum e fraction]Ordered By: Naldo Roca on 10-10-2024 Hematocrit (Bld) [Volume fraction] 44.4 % 36.0-48.0 [facility] Hemoglobin [Mass/volume] in BloodOrdered By: Naldo Roca on 10-10-2024 Hemoglobin (Bld) [Mass/Vol] 14.7 g/dL 12.0-16.0 [facility] Laboratory - Chemistry and C hemistry - challengeOrdered By: Emma Aguilar on 10-10-2024 Calcium [Mass/Vol] 9.9 mg/dL 8.5-10.1 [facility] Chloride [Moles/Vol] 101 mmol/L 98-107 [facility] CO2 [Moles/Vol] 28.6 mmol/L 21.0-32.0 [facility] Creatinine [Mass/Vol] 0.54 mg/dL Low 0.55-1.02 [facility] GFR/1.73 sq M.predicted MDRD (S/P/Bld) [Vol rate/Area] mL/min/{1.73_m2} >=60 mL/min/1.73m 2 [facility] Glucose [Mass/Vol] 130 mg/dL High 74-106 [facility] Potassium [Moles/Vol] 4.0 mmol/L 3.5-5.1 [facility] Sodium [Moles/Vol] 140 mmol/L 136-145 [facility] Urea nitrogen [Mass/Vol] 10.0 mg/dL 7.0-18.0 [facility] Urea nitrogen/Creatinine [Mass ratio] 18.5 mg/mg [facility] Laboratory - Hematology and Cell countsOrdered By: Naldo Roca on 10-10-2024 Immature granulocytes/100 WBC (Bld) 0.3 % 0.0-0.5 [facility] Leukocytes [#/volume] correc moriah for nucleated erythrocytes in Blood by Automated counOrdered By: Naldo Roca on 10-10-2024 WBC corrected for nucl RBC Auto (Bld) [#/Vol] 7.5 10 3/uL 4.0-11.0 [facility] Lymphocytes Auto (Bld) [#/Vo l]Ordered By: Naldo Roca on 10-10-2024 Lymphocytes (Bld) [#/Vol] 1.1 10 3/uL Low 1.2-3.8 [facility] Lymphocytes/100 WBC Auto (Bl d)Ordered By: Naldo Roca on 10-10-2024 Lymphocytes/100 WBC (Bld) 14.8 % Low 20.5-60.0 [facility] MCH Auto (RBC) [Entitic mass ]Ordered By: Naldo Roca on 10-10-2024 MCH (RBC) [Entitic mass] 29.1 pg 26.7-34.0 [facility] MCHC Auto (RBC) [Mass/Vol]Or dered By: Naldo Roca on 10-10-2024 MCHC (RBC) [Mass/Vol] 33.1 g/dL 29.9-35.2 [facility] MCV Auto (RBC) [Entitic vol] Ordered By: Naldo Roca on 10-10-2024 MCV (RBC) [Entitic vol] 87.7 fL 81.0-99.0 F [facility] Monocytes Auto (Bld) [#/Vol] Ordered By: Naldo Roca on 10-10-2024 Monocytes (Bld) [#/Vol] 0.4 10 3/uL 0.3-0.8 [facility] Monocytes/100 WBC Auto (Bld) Ordered By: Naldo Roca on 10-10-2024 Monocytes/100 WBC (Bld) 5.7 % 1.7-12.0 F [facility] Neutrophils Auto (Bld) [#/Vo l]Ordered By: Naldo Roca on 10-10-2024 Neutrophils (Bld) [#/Vol] 5.9 10 3/uL 1.4-6.5 [facility] Neutrophils/100 WBC Auto (Bl d)Ordered By: Naldo Roca on 10-10-2024 Neutrophils/100 WBC (Bld) 78.4 % High 43.0-75.0 [facility] No Panel InformationOrdered By: Naldo Roca on 10-10-2024 Eosinophils # (Auto) 0.0 10 3/uL 0.0-0.7 [facility] Immature Granulocyte # (Auto) 0.02 10 3/uL 0.00-0.03 [facility] Platelet mean volume Auto (B ld) [Entitic vol]Ordered By: Naldo Roca on 10-10-2024 Platelet mean volume (Bld) [Entitic vol] 9.5 fL 9.5-13.5 [facility] Platelets Auto (Bld) [#/Vol] Ordered By: Naldo Roca on 10-10-2024 Platelets (Bld) [#/Vol] 287 10 3/uL 150-450 [facility] RBC Auto (Bld) [#/Vol]Ordere d By: Naldo Roca on 10-10-2024 RBC (Bld) [#/Vol] 5.06 10 6/uL 4.20-5.40 [facility] Serum or plasma anion gap de terminationOrdered By: Emma Aguilar on 10-10-2024 Anion gap [Moles/Vol] 14.4 mmol/L [facility] Pap IG, CtNg, rfx HPV Aptima on 11-15-2023 PAP Chlamydia TUAN Negative Normal Negative [facility] Comment on above: Performed By: #### P AP #### [facility] , PAP Gonococcus Negative Normal Negative [facility] Comment on above: Result Comment: Perf ormed at: [facility] - [facility] [address] [id number] Reconciliation Manager: Cheikh Reynoso PhD, Phone: [phone] Performed at: = - [facility] [address] [id number] Reconciliation Manager: Kristina Bonner MD, Phone: [phone] PERFORMED BY: [facility] [address] [place] [address] PATHOLOGIST VEGETABLE PREPARER TIFFANIE FLORES M.D. Performed By: #### P AP #### [facility] , Pap IG Note Normal . [facility] Comment on above: Result Comment: TEST S RESULT FLAG UNITS REF RANGE LAB Clinician Provided Cytology Information No. of containers..01 ThinPrep Vial DIAGNOSIS: 01 NEGATIVE FOR INTRAEPITHELIAL LESION OR MALIGNANCY. Specimen adequacy: 01 Satisfactory for evaluation. No endocervical component is identified. Performed by: 01 Luz Casanova, Child Care Teacher ([facility]) . 01 Note: Note 02 The [...] High,A-Abnormal,AA-Critical Abnormal Performed at: 01 [place] [place] [address] [place] [address] Cheikh Reynoso PhD, 02 WB [facility] [address] [address] Kristina Bonner MD, Performed By: #### P AP [id number] #### [facility] , Creatine kinase [Enzymatic a ctivity/volume] in Serum or PlasmaOrdered By: Musa Steward on 04-04-2022 CK [Catalytic activity/Vol] 104 U/L 22-269 [facility] MG MAMM SCREEN 3D LATESHA CADon 03-07-2022 MG MAMM SCREEN 3D LATESHA CAD Patient: ANTOINETTE CRUM Exam Date: 03/07/2022 : 1965 Gender:F Ordering : DR EMMA AGUILAR M.D. Admission #: [id number] Family : Order #: [id number] CLICK HERE TO VIEW EXAM RADIOLOGY REPORT PROCEDURE: MAMMOGRAM SCREENING 3D BILATERAL CAD COMPARISON: MG MAMM SCREEN 3D LATESHA CAD, 12/06/2020. INDICATIONS: Screening mammography Calculator Name NCI Breast Cancer Risk Assessment Tool 5 Year Breast Cancer Risk 1.20% Lifetime Breast Cancer Risk 6.90% Personal Breast Cancer No Personal Ovarian Cancer No Treatments None Family Cancers None LOCATION: [facility] BREAST COMPOSITION: Scattered areas fibroglandular density. FINDINGS: [...] M.D. on 03/08/2022 at 10:09 Normal [facility] GILSON - TSHon 2021 TSH 0.755 uIU/mL Normal 0.358-3.740 [facility] Comment on above: Performed By: #### D ATTSH #### [facility] [address] [address] [address] Lesley Ghosh TSH RANGE SEE BELOW Normal [facility] Comment on above: Result Comment: <0.3 4 UIU/ml HYPERTHYROID 0.34-5.60 UIU/ml EUTHYROID >5.60 UIU/ml HYPOTHYROID Performed By: #### D ATTSH #### [facility] [address] [address] [address] Lesley Ghosh US THYROIDon 09-09-2021 US [...] by: MODE GOMEZ Date: 2021-09-09 11:21 Normal [facility] FLUORO FOR SURGICAL PROCEDUR ESon 04-01-2020 FLUORO FOR SURGICAL PROCEDURES : 04/01/2020 11:23 AM CLINICAL HISTORY: R52 Pain ICD10. COMPARISON: None available. Intraoperative fluoroscopy was provided for Dr. Vamsi llanos. A total of 62.1 seconds of fluoroscopy was used, with 7 fluoroscopic stills saved. No diagnostic images were obtained. Please see Dr. Agustin surgical notes for completeness. [facility] [place] Samuel, Chpo Incoming Radiant Results From General Dynamicse/Pacs - 04/01/2020 2:01 PM EST FLUORO FOR SURGICAL PROCEDURES : 04/01/2020 11:23 AM CLINICAL HISTORY: R52 Pain ICD10. COMPARISON: None available. Intraoperative fluoroscopy was provided for Dr. Vamsi llanos. A total of 62.1 seconds of fluoroscopy was used, with 7 fluoroscopic stills saved. No diagnostic images were obtained. Please see Dr. Agustin surgical notes for completeness. [facility] [place] FLUORO FOR SURGICAL PROCEDURES FLUORO FOR SURGICAL [...] Naldo Latham MD 04/01/20 Final result Normal [facility] POC Urine Qualon 0 04-01-2020 Beta HCG ( test) Ql (U) Negative Negative [facility], [place] Beta HCG ( test) Ql (U) [id number] [facility], [place] Negative QC Pass/Fail Pass [facility] [place] [place] Positive QC Pass/Fail Pass [facility] [place] [place] Surgical Specimenon 04-01-19 Surgical Specimen [facility] [address] [place] [address] FINAL SURGICAL PATHOLOGY REPORT Patient Name: ANTOINETTE CRUM Accession No: [id number] Age Sex: 1965 Location: [facility] Account No: [id number] Collected: 04/01/2020 [facility] Rec No: [id number] Received: 04/02/2020 Attend Phys: USMAN AGUSTIN Completed: [...] one cassette after brief decalcification. JAYDEN/DANIELLE CPT: 16998 X1 78397 X1 Kristina PORTER M.D. 04/07/2020 Electronically signed out by Page 1 of [address] [facility] Comment on above: Performed By: #### S UR #### [address] [address] COVID-19, NAAon 03-27-2020 COVID-19, TUAN Not Detected Normal Not Detect [facility] Comment on above: Result Comment: This nucleic acid amplification test was developed and its performance characteristics determined by [employer]. Nucleic acid amplification tests include PCR and [...] detected) result in this assay. Performed at: [facility], [place] [id number] Reconciliation Manager: Prasad Heath MD, Phone: [phone] Performed By: #### I RCOV #### [facility] [address] [place] [address] Basic Metabolic Panelon 01-0 Anion gap [Moles/Vol] 12 mmol/L Normal 9-15 [facility] Comment on above: Performed By: #### B MP #### [facility] [address] [place] [address] Calcium [Mass/Vol] 9.0 mg/dL Normal 8.5-9.9 [facility] Comment on above: Performed By: #### B MP #### [facility] [address] [place] [address] Chloride [Moles/Vol] 99 mmol/L Normal 95-107 [facility] Comment on above: Performed By: #### B MP #### [facility] [address] [place] [address] CO2 [Moles/Vol] 25 mmol/L Normal 20-31 [facility] Comment on above: Performed By: #### B MP #### [facility] [address] [place] [address] Creatinine [Mass/Vol] 0.65 mg/dL Normal 0.50-0.90 [facility] Comment on above: Performed By: #### B MP #### [facility] [address] [place] [address] GFR/1.73 sq M predicted among blacks MDRD (S/P/Bld) [Vol rate/Area] mL/min/{1.73_m2} Normal >60 [facility] Comment on above: Result Comment: >60 mL/min/1.73m2 EGFR, calc. for ages 18 and older using the MDRD formula (not corrected for weight), is valid for stable renal function. Performed By: #### B MP #### [facility] [address] [place] [address] GFR/1.73 sq M.predicted MDRD (S/P/Bld) [Vol rate/Area] mL/min/{1.73_m2} Normal >60 [facility] Comment on above: Result Comment: >60 mL/min/1.73m2 EGFR, calc. for ages 18 and older using the MDRD formula (not corrected for weight), is valid for stable renal function. Performed By: #### B MP #### [facility] [address] [place] [address] Glucose [Mass/Vol] 152 mg/dL Critically high 70-99 [facility] Comment on above: Performed By: #### B MP #### [facility] [address] [place] [address] Potassium [Moles/Vol] 3.7 mmol/L Normal 3.4-4.9 [facility] Comment on above: Performed By: #### B MP #### [facility] [address] [place] [address] Sodium [Moles/Vol] 136 mmol/L Normal 135-[address] [facility] Comment on above: Performed By: #### B MP #### [facility] [address] [place] [address] Urea nitrogen [Mass/Vol] 10 mg/dL Normal 6-20 [facility] Comment on above: Performed By: #### B MP #### [facility] [address] [place] [address] Anion gap [Moles/Vol] 12 mmol/L [place], [place] Calcium [Mass/Vol] 9.0 mg/dL 8.5 - 9.9 mg/dL [place] Chloride [Moles/Vol] 99 mmol/L [place] CO2 [Moles/Vol] 25 mmol/L [place] Creatinine [Mass/Vol] 0.65 mg/dL 0.5 - 0.9 mg/dL [place] GFR >60.0 >60 [place] Comment on above: >60 mL/min/1.73m2 EG FR, calc. for ages 18 and older using the MDRD formula (not corrected for weight), is valid for stable renal function. GFR Non- >60.0 >60 [place] Comment on above: >60 mL/min/1.73m2 EG FR, calc. for ages 18 and older using the MDRD formula (not corrected for weight), is valid for stable renal function. Glucose [Mass/Vol] 152 mg/dL High 70 - 99 mg/dL [place] Interpretation and review of laboratory results Abnormal [place] Potassium [Moles/Vol] 3.7 mmol/L [place] Sodium [Moles/Vol] 136 mmol/L [place] Urea nitrogen [Mass/Vol] 10 mg/dL 6 - 20 mg/d L [place] CBCon 03-26-2020 Erythrocyte distribution width (RBC) [Ratio] 14.7 % High 11.5 - 14.5 % [place] Hematocrit (Bld) [Volume fraction] 36.0 % Low 37 - 47 % [place] Hemoglobin (Bld) [Mass/Vol] 12.1 g/dL 12 - 16 g/dL [place] Interpretation and review of laboratory results Abnormal [place] MCH (RBC) [Entitic mass] 29.0 pg 27 - 31.3 p g [place] MCHC (RBC) [Mass/Vol] 33.7 % 33 - 37 % [place] MCV (RBC) [Entitic vol] 86.0 fL 82 - 100 fL [place] Platelets (Bld) [#/Vol] 289 10*3/uL 130 - 400 K/uL [place] RBC (Bld) [#/Vol] 4.18 10*6/uL Low [place] WBC (Bld) [#/Vol] 5.4 10*3/uL 4.8 - 10.8 K/uL [place] CBC With Platelet No Differe ntialon 03-26-2020 Erythrocyte distribution width (RBC) [Ratio] 14.7 % Critically high 11.5-14.[address] [facility] Comment on above: Performed By: #### C BCND #### [facility] [address] [place] [address] Hematocrit (Bld) [Volume fraction] 36.0 % Low 37.0-47.0 [facility] Comment on above: Performed By: #### C BCND #### [facility] [address] [place] [address] Hemoglobin (Bld) [Mass/Vol] 12.1 g/dL Normal 12.0-16.0 [facility] Comment on above: Performed By: #### C BCND #### [facility] [address] [place] [address] MCH (RBC) [Entitic mass] 29.0 pg Normal 27.0-31.3 [facility] Comment on above: Performed By: #### C BCND #### [facility] [address] [place] [address] MCHC (RBC) [Mass/Vol] 33.7 % Normal 33.0-37.0 [facility] Comment on above: Performed By: #### C BCND #### [facility] [address] [place] [address] MCV (RBC) [Entitic vol] 86.0 fL Normal 82.0-100.0 [facility] Comment on above: Performed By: #### C BCND #### [facility] [address] [place] [address] Platelets (Bld) [#/Vol] 289 10*3/uL Normal 130-[address] [facility] Comment on above: Performed By: #### C BCND #### [facility] [address] [place] [address] RBC (Bld) [#/Vol] 4.18 10*6/uL Low 4.20-5.40 [facility] Comment on above: Performed By: #### C BCND #### [facility] [address] [place] [address] WBC (Bld) [#/Vol] 5.4 10*3/uL Normal 4.8-10.8 [facility] Comment on above: Performed By: #### C BCND #### [facility] [address] [place] [address] COVID-19, NAAon 03-26-2020 Source Swab Anterior nares Normal [facility] Comment on above: Performed By: #### I RCOV #### [facility] [address] [place] [address] EKG 12 Leadon 03-26-2020 Atrial Rate 100 BPM [facility] [place] P [place] 53 degrees [facility] [place] P-R Interval 148 ms [facility] [place] Q-T Interval 370 ms [facility] [place] QRS Duration 84 ms [facility] [place] QTc Calculation (Bazett) 477 ms [facility] [place] R [place] 46 degrees [facility] [place] T [place] 66 degrees [facility] [place] Ventricular Rate 100 BPM [facility] [place] Normal sinus rhythm Possible Left atrial enlargement Borderline ECG No previous ECGs available Confirmed by Fay Jacob ([id number]) on 03/26/2020 2:26:04 PM [place], [place] Samuel, Chpo Incoming Results From [place] - 03/26/2020 2:26 PM EST Normal sinus rhythm Possible Left atrial enlargement Borderline ECG No previous ECGs available Confirmed by Fay Jacob ([id number]) on 03/26/2020 2:26:04 PM [facility] TAMY Prothrombin Timeon INR Coag (PPP) [Relative time] 1.0 {INR} Normal [facility] Comment on above: Performed By: #### P T #### [facility] [address] [facility] [address] PT Coag (PPP) [Time] 12.9 s Normal 12.3-14.9 [facility] Comment on above: Performed By: #### P T #### [facility] [address] [facility] [address] Protime-INRon 03-26-2020 INR Coag (PPP) [Relative time] 1.0 {INR} [place], [place] PT Coag (PPP) [Time] 12.9 s [place], [place] TYPE AND SCREENon 03-26-2020 ABO/Rh Positive [place] Confirmation type needs to be drawn. [place] Type and Screen Capture 3 sc rn cellon 03-26-2020 Type and Screen Capture 3 scrn cell PATIENT: SKYLA Maldonado LOC: [facility] BILL# : [id number] : 1965 SEX: F ORDERED BY: DERIC Marie ORDERED : 03/26/2020 11:48 COLLECTED: 03/26/2020 14:06 ORDER : [id number] RECEIVED : 03/26/2020 14:06 Confirmation type needs to be drawn. TEST NAME RESULT UNITS RANGES ABN FL ST ABORH Capture A POS F Antibody 3 Cell Scrn u NEG F Normal [facility] Comment on above: Performed By: #### T S3C #### [facility] [address] [place] [id number] Vital Signs Date Time Vital Sign Value Performing Clinician Facility 10-14-2024 09:04-0400 Body height 167.64 cm Emma Aguilar MD Work Phone: [facility] 10-14-2024 09:04-0400 Body mass index (BMI) [Ratio] 31.9 kg/m2 Emma Aguilar MD Work Phone: [facility] 10-14-2024 09:04-0400 Body weight 89.86 kg Emma Aguilar MD Work Phone: [facility] 10-14-2024 09:04-0400 Diastolic blood pressure 97 mm[Hg] Emma Aguilar MD Work Phone: [facility] 10-14-2024 09:04-0400 Heart rate 94 /min Emma Aguilar MD Work Phone: [facility] 10-14-2024 09:04-0400 Systolic blood pressure 164 mm[Hg] Emma Aguilar MD Work Phone: [facility] 10-03-2024 08:14-0400 Body height 167.64 cm Emma Aguilar MD Work Phone: [facility] 10-03-2024 08:14-0400 Body mass index (BMI) [Ratio] 31.9 kg/m2 Emma Aguilar MD Work Phone: [facility] 10-03-2024 08:14-0400 Body weight 89.81 kg Emma Aguilar MD Work Phone: [facility] 10-03-2024 08:14-0400 Diastolic blood pressure 111 mm[Hg] Emma Aguilar MD Work Phone: [facility] 10-03-2024 08:14-0400 Heart rate 80 /min Emma Aguilar MD Work Phone: [facility] 10-03-2024 08:14-0400 Systolic blood pressure 174 mm[Hg] Emma Aguilar MD Work Phone: [facility] 08-28-2024 10:33-0400 Body height 167.64 cm Emma Aguilar MD Work Phone: [facility] 08-28-2024 10:33-0400 Body mass index (BMI) [Ratio] 32.1 kg/m2 Emma Aguilar MD Work Phone: [facility] 08-28-2024 10:33-0400 Body weight 90.26 kg Emma Aguilar MD Work Phone: [facility] 08-28-2024 10:33-0400 Diastolic blood pressure 84 mm[Hg] Emma Augilar MD Work Phone: [facility] 08-28-2024 10:33-0400 Heart rate 103 /min Emma Aguilar MD Work Phone: [facility] 08-28-2024 10:33-0400 Systolic blood pressure 119 mm[Hg] Emma Aguilar MD Work Phone: [facility] 04-07-2024 11:33-0500 Body height 167.64 cm [facility] 04-07-2024 11:33-0500 Body mass index (BMI) [Ratio] 32.5 kg/m2 [facility] 04-07-2024 11:33-0500 Body weight 91.39 kg [facility] 04-07-2024 11:33-0500 Diastolic blood pressure 95 mm[Hg] [facility] 04-07-2024 11:33-0500 Heart rate 97 /min [facility] 04-07-2024 11:33-0500 Systolic blood pressure 148 mm[Hg] [facility] 03-31-2024 15:00-0500 Body height 167.64 cm [facility] 03-31-2024 15:00-0500 Body mass index (BMI) [Ratio] 32.8 kg/m2 [facility] 03-31-2024 15:00-0500 Body weight 92.07 kg [facility] 03-31-2024 15:00-0500 Diastolic blood pressure 98 mm[Hg] [facility] 03-31-2024 15:00-0500 Heart rate 93 /min [facility] 03-31-2024 15:00-0500 Systolic blood pressure 156 mm[Hg] [facility] 11-15-2023 10:41-0400 Body height 167.64 cm [facility] 11-15-2023 10:41-0400 Body mass index (BMI) [Ratio] 32.9 kg/m2 [facility] 11-15-2023 10:41-0400 Body weight 92.53 kg [facility] 11-15-2023 10:41-0400 Diastolic blood pressure 86 mm[Hg] [facility] 11-15-2023 10:41-0400 Heart rate 109 /min [facility] 11-15-2023 10:41-0400 Systolic blood pressure 142 mm[Hg] [facility] 07-26-2023 09:26-0400 Body height 167.64 cm [facility] 07-26-2023 09:26-0400 Body mass index (BMI) [Ratio] 31.9 kg/m2 [facility] 07-26-2023 09:26-0400 Body weight 89.81 kg [facility] 07-26-2023 09:26-0400 Diastolic blood pressure 86 mm[Hg] [facility] 07-26-2023 09:26-0400 Heart rate 93 /min [facility] 07-26-2023 09:26-0400 Systolic blood pressure 130 mm[Hg] [facility] 07-10-2023 11:02-0400 Body height 15.24 cm [facility] 07-10-2023 11:02-0400 Body mass index (BMI) [Ratio] 3905.5 kg/m2 [facility] 07-10-2023 11:02-0400 Body weight 90.71 kg [facility] 07-10-2023 11:02-0400 Diastolic blood pressure 102 mm[Hg] [facility] 07-10-2023 11:02-0400 Heart rate 96 /min [facility] 07-10-2023 11:02-0400 Systolic blood pressure 161 mm[Hg] [facility] 04-26-2023 09:30-0500 Body height 167.64 cm Emma Aguilar Other [facility] Other 04-26-2023 09:30-0500 Body mass index (BMI) [Ratio] 31.92 kg/m2 Emma Aguilar Other [facility] [place] [facility] Other 04-26-2023 09:30-0500 Body weight 89.72 kg Emma Aguilar Other [facility] Other 04-26-2023 09:30-0500 Diastolic blood pressure 83 mm[Hg] Emma Aguilar Other [facility] Other 04-26-2023 09:30-0500 Systolic blood pressure 119 mm[Hg] Emma Aguilar Other [facility] Other 02-12-2023 15:15-0500 Body height 167.64 cm Emma Aguilar Other [facility] Other 02-12-2023 15:15-0500 Body mass index (BMI) [Ratio] 31.57 kg/m2 Emma Aguilar Other [facility] Other 02-12-2023 15:15-0500 Body weight 88.72 kg Emma Aguilar Other [facility] Other 02-12-2023 15:15-0500 Diastolic blood pressure 97 mm[Hg] Emma Aguilar Other [facility] Other 02-12-2023 15:15-0500 Systolic blood pressure 149 mm[Hg] Emma Aguilar Other [facility] Other 10-26-2022 09:45-0400 Body height 167.64 cm Emma Aguilar Other [facility] Other 10-26-2022 09:45-0400 Body mass index (BMI) [Ratio] 31.34 kg/m2 Emma Aguilar Other [facility] Other 10-26-2022 09:45-0400 Body weight 88.09 kg Emma Aguilar Other [facility] Other 10-26-2022 09:45-0400 Diastolic blood pressure 96 mm[Hg] Emma Aguilar Other [facility] Other 10-26-2022 09:45-0400 Respiratory rate 18 /min Emma Aguilar Other [facility] Other 10-26-2022 09:45-0400 SaO2% (BldA) [Mass fraction] 90 % Emma Aguilar Other [facility] Other 10-26-2022 09:45-0400 Systolic blood pressure 145 mm[Hg] Emma Aguilar Other [facility] Other 01-28-2021 11:15-0500 Body height 165.1 cm Andrew Smith Other [facility] Other 01-28-2021 11:15-0500 Body mass index (BMI) [Ratio] 33.11 kg/m2 Andrew Smith Other [facility] Other 01-28-2021 11:15-0500 Body weight 90.27 kg Andrew Smith Other [facility] Other 01-28-2021 11:15-0500 Diastolic blood pressure 80 mm[Hg] Andrew Smith Other [facility] Other 01-28-2021 11:15-0500 Systolic blood pressure 140 mm[Hg] Andrew Luis Other [facility] Other 12-29-2020 15:30-0400 Body height 165.1 cm Andrew Smith Other [facility] Other 12-29-2020 15:30-0400 Body mass index (BMI) [Ratio] 33.48 kg/m2 Andrew Smith Other [facility] Other 12-29-2020 15:30-0400 Body weight 91.26 kg Andrew Smith Other [facility] Other 12-29-2020 15:30-0400 Diastolic blood pressure 76 mm[Hg] Andrew Smith Other [facility] Other 12-29-2020 15:30-0400 SaO2% (BldA) [Mass fraction] 99 % Andrew Smith Other [facility] Other 12-29-2020 15:30-0400 Systolic blood pressure 124 mm[Hg] Andrew Smith Other [facility] Other 12-08-2020 15:30-0400 Body height 165.1 cm Andrew Smith Other [facility] Other 12-08-2020 15:30-0400 Body mass index (BMI) [Ratio] 33.11 kg/m2 Andrew Smith Other [facility] Other 12-08-2020 15:30-0400 Body weight 90.27 kg Andrew Smith Other [facility] Other 12-08-2020 15:30-0400 Diastolic blood pressure 70 mm[Hg] Andrew Smith Other [facility] Other 12-08-2020 15:30-0400 SaO2% (BldA) [Mass fraction] 99 % Andrew Smith Other [facility] Other 12-08-2020 15:30-0400 Systolic blood pressure 130 mm[Hg] Andrew Smith Other [facility] Other 04-01-2020 16:45-0500 Body Temperature 97.81 [degF] [facility] [place] 04-01-2020 16:45-0500 BP Diastolic 89 mm[Hg] [facility] [place] 04-01-2020 16:45-0500 BP Systolic 174 mm[Hg] [facility] [place] , [place] 04-01-2020 16:45-0500 Pulse (Heart Rate) 101 /min [facility] [place] 04-01-2020 16:45-0500 Pulse Oximetry 100 % [facility] [place] , [place] 04-01-2020 16:45-0500 Respiratory Rate 18 /min [facility] [place] 04-01-2020 09:29-0500 BMI (Body Mass Index) 33.3 kg/m2 [facility] 04-01-2020 09:29-0500 Body weight 88 kg [facility] , [place] 04-01-2020 09:29-0500 Height 162.6 cm [facility] , [place] 03-26-2020 11:11-0500 BMI (Body Mass Index) 33.37 kg/m2 [address], [place] 03-26-2020 11:11-0500 Body Temperature 98.2 [degF] [address], [place] 03-26-2020 11:11-0500 Body weight 88.[address] , [place] 03-26-2020 11:11-0500 BP Diastolic 89 mm[Hg] [address] , [place] 03-26-2020 11:11-0500 BP Systolic 178 mm[Hg] [address] , [place] 03-26-2020 11:11-0500 Height 162.[address] , [place] 03-26-2020 11:11-0500 Pulse (Heart Rate) 111 /min [address] 03-26-2020 11:11-0500 Pulse Oximetry 99 % [address] 03-26-2020 11:11-0500 Respiratory Rate 16 /min [address] Encounters Encounter Date Encounter Type Care Provider Facility Start: 10-14-2024 End: 10-14-2024 ambulatory Emma Aguilar MD Work Phone: [facility] Work Phone: Start: 10-14-2024 End: 10-14-2024 Patient encounter procedure Emma Aguilar MD -[facility] Work Phone: Start: 10-10-2024 Non-patient / Non-visit Vickie Chowdhury CMA -[facility] Work Phone: Start: 10-10-2024 Non-patient / Non-visit Naldo Rea DO -[facility] Work Phone: Start: 10-03-2024 End: 10-03-2024 ambulatory Emma Aguilar MD Work Phone: [facility] Work Phone: Start: 10-03-2024 End: 10-03-2024 Patient encounter procedure Emma Aguilar MD -[facility] Work Phone: Start: 08-28-2024 Patient encounter status Rose Aguilar MD Work Phone: [facility] Start: 08-28-2024 End: 08-28-2024 Patient encounter procedure Emma Aguilar MD [facility] Work Phone: Start: 08-28-2024 End: 08-28-2024 Patient encounter status Emma Aguilar MD [facility] Start: 04-07-2024 End: 04-07-2024 ambulatory [facility] Work Phone: Start: 04-07-2024 End: 04-07-2024 [facility] encounter procedure [facility] Work Phone: Start: 03-31-2024 End: 03-31-2024 [facility] Work Phone: Start: 03-31-2024 End: 03-31-2024 Patient encounter procedure [facility] Work Phone: Start: 11-15-2023 Encounter for gynecological examination (general) (routine) without abnormal findings Emma Aguilar [facility] Start: 11-15-2023 End: 11-15-2023 ambulatory Emma Aguilar [facility] Work Phone: Start: 11-15-2023 End: 11-15-2023 Patient encounter procedure [facility] Work Phone: Start: 07-26-2023 End: 07-26-2023 ambulatory [facility] Work Phone: Start: 07-26-2023 End: 07-26-2023 Patient encounter procedure [facility] Work Phone: Start: 07-10-2023 End: 07-10-2023 ambulatory [facility] Work Phone: Start: 07-10-2023 End: 07-10-2023 Patient encounter procedure [facility] Work Phone: Start: 05-21-2023 Non-patient / Non-visit [facility] Work Phone: Start: 05-18-2023 Non-patient / Non-visit [facility] Work Phone: Start: 04-26-2023 End: 04-26-2023 ambulatory Emma Aguilar Other [facility] Other Start: 04-26-2023 Office outpatient vi sit 15 minutes Emma Aguilar [facility] Start: 02-12-2023 End: 02-12-2023 ambulatory Emma Aguilar Other [facility] Other Start: 02-12-2023 Office outpatient vi sit 15 minutes Emma Aguilar [facility] Start: 10-26-2022 End: 10-26-2022 ambulatory Emma Aguilar Other [facility] Other Start: 10-26-2022 Office outpatient vi sit 15 minutes Emma Aguilar [facility] Start: 04-04-2022 End: 04-04-2022 ambulatory MD Emma Aguilar Work Phone: [facility] Work Phone: Start: 04-04-2022 End: 04-04-2022 Patient encounter procedure MD Emma Aguilar Work Phone: [facility] [address] Work Phone: Start: 03-07-2022 End: 03-08-[address] EMMA AGUILAR Facility:[facility] Start: 03-06-2022 Adult health examination Rose Aguilar Other [facility] Other Start: 2021 End: 09-15-[address] ARREAGA LISTED REQUEST Facility:[facility] Start: 09-09-2021 End: 09-10-[address] EMMA AGUILAR Facility:[facility] Start: 01-28-2021 End: 01-28-2021 ambulatory Andrew Smith Other [facility] Other Start: 01-28-2021 Office outpatient vi sit 25 minutes Andrew Luis [facility] Start: 01-13-2021 Telephone encounter Andrew Luis [facility] Start: 12-29-2020 Office outpatient vi sit 15 minutes Andrew Luis [facility] Start: 12-23-2020 Telephone encounter Andrew Luis [facility] Start: 12-22-2020 (Procedure) Short Andrewberkley Smith [facility] Start: 12-08-2020 Office outpatient vi sit 25 minutes Nadrew Luis [facility] Start: 04-01-2020 End: 04-01-2020 Patient encounter procedure [facility] Start: 04-01-2020 End: 04-01-2020 Subsequent hospital visit by physician Usman Agustin Work Phone: [facility] Comment on above: Postoperative pain ( Primary Dx) Start: 04-01-2020 End: 04-04-2020 Patient encounter procedure EM[facility] Start: 04-01-2020 End: 04-03-2020 Subsequent hospital visit by physician Usman Agustin Work Phone: [facility] Comment on above: Pain Start: 03-26-2020 End: 03-31-2020 Patient encounter procedure EMMA [facility] Start: 03-26-2020 End: 03-30-2020 Subsequent hospital visit by physician Marcelle [facility] Pre-Admission Testing Comment on above: Cervical disc hernia tion; Radiculopathy of cervical spine Procedures Date Procedure Procedure Detail Performing Clinician Start: 04-01-2020 Fluoroscopy during operation Usman Agustin Work Phone: Start: 04-01-2020 Urine test visual color cmprsn meths Crystal Marie Deric Start: 03-26-2020 Antibody screen [facility] Start: 03-26-2020 Basic metabolic pane l calcium total Crystal Frank Deric Start: 03-26-2020 Blood count complete automated Crystal Frank Deric Start: 03-26-2020 Prothrombin time Manuel ia Frank Deric Start: 03-26-2020 Blood typing serologic abo Crystal Marie Deric Start: 03-26-2020 Ecg routine ecg w/le ast 12 lds w/i&r Crystal Leos Screening for malign ant neoplasm of breast Emma Aguilar Other Plan of Treatment Date Care Activity Detail Author Start: 07-26-2023 Patient referral [facility] Work Phone: Start: 04-04-2022 [facility] Start: 04-14-2020 End: 04-14-2020 Office Visit 04/14/2020 Office Visit Neurosurgery Usman Agustin MD [address] [facility], [address] [place] [id number] [employer] Start: 04-01-2020 End: 04-01-2020 Hospital Encounter [facility] Comment on above: A.C.D.F. ( ANTERIOR CERVICAL DISKECTOMY FUSION) C5-6 1 HR/ I C-ARM, NUVASIVE/ S.S.E.P. TO BE LATEX FREE RE & SILAS Start: 11-18-2019 Influenza vaccination Flu vaccine (# 1) [place], [place] Start: 09-13-2013 Screening for malign ant neoplasm of breast Breast cancer screen [place], [place] Start: 09-13-2013 Screening for malign ant neoplasm of colon Colon cancer screen colonoscopy [place], [place] Start: 09-13-2013 Shingles Vaccine (1 of 2) Shingles Vaccine (1 of 2) [place], [place] Start: 2003 Diabetes screen Diabetes screen [place], [place] Start: 2003 Lipid panel Lipid screen [place], [place] Start: 09-13-1984 Screening for malign ant neoplasm of cervix Cervical cancer screen [place], [place] Start: 09-13-1982 DTaP/Tdap/Td vaccine (1 - Tdap) DTaP/Tdap/Td vaccine (1 - Tdap) [place] Start: 09-13-1978 [facility] [place] [place] Start: 1965 Hepatitis C screening Hepatitis C sc reen [place], [place] End: 03-26-2020 COVID-19 COVID-19 Lab Routine One Time for 1 Occurrences starting 03/26/2020 until 03/26/2020 [place] Comment on above: One Time for 1 Occur rences starting 03/26/2020 until 03/26/2020 CT Neck W contrast IV [facility] End: 04-01-2020 Intermittent pulse oximetry Pulse Oximetry Spot Check Respiratory Care Routine One Time for 1 Occurrences starting 04/01/2020 until 04/01/2020 [place] Comment on above: One Time for 1 Occur rences starting 04/01/2020 until 04/01/2020 MG Breast - bilatera l Screening [facility] Nuclear Ab [Titer] i n Serum [facility] Oxygen therapy [Mini mum Data Set] Initiate Oxygen Therapy Protocol Respiratory Care Routine Daily until discontinued starting 04/01/2020 [place] Comment on above: Daily until disconti nued starting 04/01/2020 Patient referral [facility] Work Phone: Phase I & II - meter ed glucose Phase I & II - metered glucose Point of Care Testing Routine As Needed until discontinued starting 04/01/2020 [place] Comment on above: As Needed until disc ontinued starting 04/01/2020 Surgical Pathology Surgical Path ology Lab Routine Release Upon Ordering for 1 Occurrences starting 04/01/2020 [place] Comment on above: Release Upon Orderin g for 1 Occurrences starting 04/01/2020 [facility] Immunizations Immunization Date Immunization Notes Care Provider Mago dickey 09-28-2021 COVID-19 Vaccine Pfi zer - Documentation Purposes Only Emma Aguilar Other [facility] 11-11-2020 influenza virus vaccine, split virus (incl. purified surface antigen) Emma Aguilar Other [facility] Other 11-11-2020 influenza virus vaccine, unspecified formulation [facility] 06-30-2020 COVID-19 mRNA-[id number] (Moderna) MD Emma Aguilar Work Phone: [facility] 06-02-2020 COVID-19 mRNA-1278 (Modernjudy) MD Emma Aguilar Work Phone: [facility] 12-15-2019 zoster vaccine, live Emma Aguilar Other [facility] 12-02-2019 influenza virus vaccine, split virus (incl. purified surface antigen) Emma Aguilar Other [facility] Other 12-02-2019 influenza virus vaccine, unspecified formulation [facility] 01-26-2018 influenza virus vaccine, split virus (incl. purified surface antigen) Emma Aguilar Other [facility] Other 01-26-2018 influenza virus vaccine, unspecified formulation [facility] Payers Date Payer Category Payer Unknown [id number] 1965 Unknown [id number] 1965 Unknown [id number] 1965 Unknown [id number] [id number] 1965 Unknown [id number] [id number] 1961 Self-pay 1961 Unknown [id number]. [id number] Unknown [id number] [id number] [id number] Unknown [id number] [id number] Social History Date Type Detail Facility Start: 03-26-2020 End: 01-12-2021 Tobacco smoking status OHIS Former smoker [facility] End: 03-26-2000 History of tobacco use Current smoker [place], [place] End: 03-26-2000 History of tobacco use Cigarette Smoker [place] Start: 03-26-2020 End: 04-02-2020 Cigarettes smoked current (pack per day) - Reported [place] Start: 03-26-2020 End: 04-02-2020 Tobacco use and exposure Never used [place] Start: 03-26-2020 End: 04-02-2020 Alcohol intake Current drinker of alcohol (finding) [place] Start: 03-26-2020 Alcohol Comment rare social [facility] [place], [place] Sex Assigned At Not on file [place] Exposure to SARS-CoV -2 (event) Not sure [place] Sex Assigned At Sex Assigned At [facility] Other Start: 1965 Sex Assigned At Female F [facility] Start: 02-12-2023 End: 10-03-2024 Tobacco smoking status OHIS Never smoked tobacco (finding) [facility] Start: 03-31-2024 End: 04-07-2024 Sex Female (finding) [facility] Medical Equipment Procedure Code Equipment Code Equipment Origin al Text Equipment Identifier Dates Cage Spnl [id number] xl14mm Lum Lord Intbdy Fus [facility] - [id number] Start: 04-01-2020 Plate Spnl 1 Lev el 22 Mm Antr Cerv Lck Translational [id number] Start: 04-01-2020 Screw Spnl L13mm Dia4mm Ant Cerv [facility]pr [place] [facility] [id number] Start: 04-01-2020 Clinical Notes 03-19-2020 to 08-28-2024 Note Date & Type Note Facility 08-28-2024 Evaluation note Diagnosis Onset Date Resolution Fibromyalgia acute August 28, 025 10:32am Osteoarthritis acute August 28, 2024 10:32am Screening mammogram for breast cancer acute August 28, 2024 10:32am Wellness examination acute August 28, 2024 10:32am [facility] Work Phone: 1(672) 545-544606-12-2025 Evaluation note* Diagnosis Onset Date Resolution Status Admit Date Fibromyalgia acute August 28 10:32am Osteoarthritis acute August 28, 2024 10:32am Screening mammogram for [facility] cancer acute August 28, 2024 10:32am Wellness examination acute August 28, 2024 10:32am BPV (benign positional vertigo) acut e October 03, 2024 8:10am Gastroenteritis acute September 8:10am Acute sinusitis, unspecified acute October 14, 2024 8:59am Benign essential HTN acute October 14, 2024 8:59am BPV (benign positional vertigo) acut e October 14, 2024 8:59am [facility] Work Phone: 1(928) 238-844901-13-2025 Evaluation note* Diagnosis Onset Date Resolution Status Admit Date Visual problems acute March 192024 2:52pm [facility] Work Phone: 1(850) 704-515402-08-2024 Evaluation note* Encounter Date Diagnosis Assessment Notes Treatment Notes Treatment Clinical Notes Apr, Fibromyalgia (ICD-10 - M79.7) Already on highest dose of meloxicam. Appears that max dose of Cymbalta is 120 mg daily. Will increase it modestly to 90 mg total daily. Hesitate to add more medications which could cause drowsiness, like Lyrica. Call in 30 days if not effective. [facility] Other 11-27-2023 Evaluation note* Encounter Date Diagnosis Assessment Notes Treatment Notes Treatment Clinical Notes Jan, Acute bacterial conjunctivitis of left eye (ICD-10 - H10.32) [place] eye is contagious. Wash hands frequently and try not to rub eyes. Use warm wash cloth to keep them clean or to remove discharge from eyes. Use drops until eyes are clear then 3 more days [facility] Other 08-10-2023 Evaluation note* Encounter Date Diagnosis [...] - E07.9) Chronic problem. Continue present med. [facility] Other 11-12-2021 Evaluation note* Encounter Date Diagnosis [...] (ICD-10 - G89.29) Continue medications as prescribed [facility] Other 10-13-2021 Evaluation note* Encounter Date Diagnosis [...] (ICD-10 - G89.29) Conitnue medications as prescribed [facility] Other 09-22-2021 Evaluation note* Encounter Date Diagnosis [...] (ICD-10 - G89.29) Continue medications as prescribed [facility] Other 01-01-2021 History general Narrative - Reported* Type Description Date Surgical History CYST REMOVAL FROM OVARY Surgical History septoplasty 2019 Surgical History disc replacement in neck 03/2020 Hospitalization History see above [facility] Other Evaluation noteNo [facility] [employer] Other Evaluation noteNo assessment information available [facility] Work Phone: Evaluation note* Diagnosis Onset Date Resolution Status Acute sinusitis, unspecified acute Mass of right side of neck a cute Right foot pain acute [facility] Work Phone: Evaluation note* Diagnosis Onset Date Resolution Status Constipation acute Fatigue acute Well woman exam acute [facility] Work Phone: Evaluation note* Diagnosis Onset Date Resolution Status Admit Date Visual problems acute March 192024 2:52pm [facility] Work Phone: History general Narrative - Reported* Type Description Date Medical History Chronic cervical radiculopathy Medical History Fibromyalgia Medical History 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 Surgical History CYST REMOVAL FROM OVARY Surgical History septoplasty 2019 Surgical History disc replacement in neck 03/2020 Hospitalization History see above [facility] Other Hospital Discharge instructionsAmbulatory Orders* Referral to Podiatry Time Frame: 07/26/23, Location: None Selected [facility] Work Phone: Reason for referral (narrative)No reason for referral information availableUniversity [facility] Work Phone: History of Present Illness * Crystal Leos APRN - CNP - 03/26/2020 11:00 AM EST covid test to be done 03/26/2020 & will self quarantine until OR 04/01/2020. Jeanette-Hex wash instructions given -- to be done Sunday03/30/2020 & Sunday03/31/2020. documented in this encounter* Yony Ash, XANDER - 04/01/2020 4:47 PM EST Pt had ambulated to bathroom, steady, void without difficulty. Discharge instructions and 3 scriptsreviewed with pt, verbalized understanding. Pt tolerating oral fluids, IV discontinued. pts sister coming at 5:30pm * Traa Hook RN - 04/01/2020 4:22 PM EST [...] Documents on File Type Date Recorded Patient Alumni Relations Officer Expl anation ACP-Advance Directive ACP-Power of Marking Stitcher Documents on File Type Date Recorded Patient Alumni Relations Officer Expl anation ACP-Advance Directive ACP-Power of Marking Stitcher Advance Directive Response Recorded Date/ Time Advance [...] Fluoro For Surgical Procedures Usman Agustin MD [address], [address] [place] [id number] Discharge Instructions * Instructions* Usman Agustin MD [...] your physician 11) Call your doctor at [phone] for an appointment (or follow up as [...] call OFFICE. The 24- hour phone is [phone] 13) If you are unable to contact [...] 10:3 2am Screening mammogram for breast cancer [facility] 2024 10:32am Wellness examination August 28, 2024 10: 32am Chief Complaint Admit Date wellness August 28, 2024 10:3 2am Nausea, Vertigo October 03, 2024 8:10 am Amb Documentation October 10, 2024 11:2 1am [facility] follow up, Vertigo, BP issues September 172024 8:59am Reason for Visit Admit Date Fibromyalgia August 28, 2024 10:3 2am Osteoarthritis August 28, 2024 10:3 2am Screening mammogram for breast cancer [facility] 2024 10:32am Wellness examination August 28, 2024 10: 32am BPV (benign positional vertigo) September 8:10am Gastroenteritis October 03, 2024 8:10 am Acute sinusitis, unspecified October 14, 2024 8:59am Benign essential HTN October 14, 2024 8:5 9am BPV (benign positional vertigo) September 8:59am Additional Source Comments INFORMATION SOURCE (unrecogn ized section and content) DATE CREATED AUTHOR 03/31/2020 [facility] DATE CREATED AUTHOR AUTHOR[facility]S ORGANIZ ATION [facility] DATE CREATED AUTHOR AUTHOR'S ORGANIZ ATION 03/15/2022 [facility] DATE CREATED AUTHOR AUTHOR'S ORGANIZ ATION 11/23/2023 [facility] Reason for Visit (unrecogniz ed section and content) Status Reason Specialty Diagnoses / Procedures Re ferred By Contact Referred To Contact Diagnoses Herniation of cervical intervertebral disc with radiculopathy DISC HERNIATION RADICULOPATHY DEGENERATIVE DISC DISEASE Procedures SD DISK SURG,ANTER,CERVICAL,SINGL E LVL A.C.D.F. ( ANTERIOR CERVICAL DISKECTOMY FUSION) C5-6 1 HR/ I C-ARM, NUVASIVE/ S.S.E.Usman Rodriguez MD [address], [address] [place] [address] [facility] Ordered Prescriptions (unrec ognized section and content) [...] Ann Burris Attending Provider Active Start: [place] [facility] 2023 Team Status: Active Member Role Status [...] October 03, 2024 End: October 03, 2024 Team Status: Active Member Role Status Linda Aguilar MD Primary Care Provider Active Start: October 10, 2024 Naldo Roca DO Attending Provider Active S tart: October 10, 2024 Team Status: Active Member Role Status Linda Aguilar MD Primary Care Provider Active Start: October 10, 2024 Vickie Lopez CMA Attending Provider Active Start: October 10, 2024 Team Status: Inactive Member Role Status Linda Aguilar MD Primary Care Provider Active Start: October 14, 2024 End: October 14, 2024 Emma Aguilar MD Attending Provider Active St art: October 14, 2024 End: October 14, 2024 Goals (unrecognized section and content) Goals [...] BE BASED ON THE PRIMARY CLINICAL RECORDS. [facility] [employer] [facility]. provides no warranty or guarantee of the accuracy or completeness of information in this document.
== END 2024-12-18 15:03 | disposition home or self-care (01) ==
PROVIDERS: Emergency Provider Emergency Medicine; PCP Family Medicine
DX: G43.909 Migraine, unspecified, not intractable, without status migrainosus (principal); I10 Essential (primary) hypertension
CPT/HCPCS: 36415; 80048; 85025; 93005; 96374; 96375; 99284; 99285; J1885; J1920; J2405